=== PATIENT | female | born 1940 | race Caucasian/White ===

== ENCOUNTER 2017-12-22 11:47 | Inpatient (IN) | payer OTHER, BC ==
[2017-12-22] MEDS ORDERED: AZITHROMYCIN 500 MG TABLET PO ONE (12:01)
[2017-12-22] MEDS ORDERED: methylPREDNISolone NA SUCC 125 MG/2 ML VIAL IVPB ONE (12:01)
[2017-12-22] MEDS: ALBUTEROL SO4 2.5/IPRATROPIUM 0.5 INH SOL 3 ML VIAL.NEB. NEB SCH ×4 (12:10→12:51)
[2017-12-22] MEDS ORDERED: ALBUTEROL SO4 2.5/IPRATROPIUM 0.5 INH SOL 3 ML VIAL.NEB. NEB ONE (12:14)
[2017-12-22] MEDS ORDERED: AZITHROMYCIN 250 MG TABLET ONE (12:14)
[2017-12-22] MEDS ORDERED: methylPREDNISolone NA SUCC 125 MG/2 ML VIAL ONE ×2 (12:14→12:17)
--- NOTE | 2017-12-22 12:22 | PDOC ---
History of Present Illness <Guido De La Garza - Last Filed: 12/22/17 14:53> - History of Present Illness Initial Comments: 12/22/17 12:44 "The patient is a 77 year old female with significant past medical history of hypertension. hyperlipidemia, diabetes mellitus, mitral valve prolapse, coronary artery disease, anemia, COPD on 2L O2, TIA, Alzheimer's dementia who presents to the emergency department from detention, with worsening shortness of breath for 1 week. The patient states that her current symptoms feel similar to prior COPD flares. Pt denies CP, denies F/C. She states that she used her nebulizers at home with some relief. Pt received 2 nebulizers prior to arriving to Emergency Department, which she states helped to alleviate some of her symptoms. She denies leg swelling, recent travel, and sick contacts. Social History: Former smoker (quit 1 year ago), Lives in detention <Bartolo Maynard - Last Filed: 12/22/17 15:15> - General Stated Complaint: SOB Time Seen by Provider: 12/22/17 11:55 Past History <Guido De La Garza - Last Filed: 12/22/17 14:53> - Past Medical History Anemia: Yes (IRON DEFICIENCY) Asthma: No Cancer: No Cardiac Disorders: Yes (HX MVP; ASHD; CAD) CVA: Yes (TIA) COPD: Yes (FREQUENT BRONCHITIS) CHF: Yes Dementia: Yes Diabetes: Yes (NIDDM) GI Disorders: Yes (HX GI BLEED; DIVERTICULOSIS;ESOPHAGITIS;AVM; HIATAL HERNIA; POLYPS,REFLUX E) Disorders: Yes (KIDNEY STONES) HTN: Yes Hypercholesterolemia: Yes Liver Disease: No Seizures: No Thyroid Disease: Yes - Surgical History Abdominal Surgery: No Appendectomy: No Cardiac Surgery: No Cholecystectomy: Yes Lung Surgery: No Neurologic Surgery: No Orthopedic Surgery: Yes (LEFT hip replacement 2010; KNEE SURGERY) - Immunization History Immunization Up to Date: Yes - Suicide/Smoking/Psychosocial Hx Smoking Status: Yes Smoking History: Former smoker Have you smoked in the past 12 months: No Number of Cigarettes Smoked Daily: 10 If you are a former smoker, when did you quit?: 2017 Information on smoking cessation initiated: No 'Breaking Loose' booklet given: 07/12/16 Hx Alcohol Use: No Drug/Substance Use Hx: No Substance Use Type: None Hx Substance Use Treatment: No <Bartolo Maynard - Last Filed: 12/22/17 15:15> - Past Medical History Allergies/Adverse Reactions: Allergies Allergy/AdvReac Type Severity Reaction Status Date / Time No Known Allergies Allergy Verified 08/18/16 16:17 Home Medications: Ambulatory Orders Ascorbate Calcium [Vitamin C] 500 mg PO DAILY 11/16/16 Aspirin [ASA -] 81 mg PO DAILY 11/16/16 Atorvastatin Ca [Lipitor] 80 mg PO HS 11/16/16 Cranberry Conc/Ascorbic Acid [Cranberry Concentrate Softgel] 1 each PO DAILY 04/27 Diltiazem Cd [Cardizem Cd -] 120 mg PO DAILY 11/16/16 Donepezil HCl 5 mg PO DAILY 11/16/16 Ferrous Sulfate 325 mg PO DAILY 11/16/16 Furosemide [Lasix] 60 mg PO DAILY 11/16/16 Insulin (Levemir) [Levemir Vial] 8 unit SQ HS 11/16/16 Insulin (Levemir) [Levemir Vial] 15 unit SQ DAILY 11/16/16 Lactobacillus Acidophilus [Bacid -] 1 each PO BID 11/16/16 Melatonin 3 mg PO DAILY 11/16/16 Olanzapine [Zyprexa -] 2.5 mg PO HS 11/16/16 Paroxetine HCl [Paxil -] 30 mg PO DAILY 11/16/16 Paroxetine HCl [Paxil] 40 mg PO DAILY 11/16/16 Potassium Chloride 80 meq PO DAILY 11/16/16 hydrOXYzine HCL [Atarax -] 25 mg PO TID 11/16/16 Review of Systems - Review of Systems Comments:: 12/22/17 12:47 "GENERAL/CONSTITUTIONAL: No fever or chills. No weakness. HEAD, EYES, EARS, NOSE AND THROAT: No change in vision. No ear pain or discharge. No sore throat. CARDIOVASCULAR: No chest pain RESPIRATORY: (+) Shortness of breath. No cough, or hemoptysis. GASTROINTESTINAL: No nausea, vomiting, diarrhea or constipation. GENITOURINARY: No dysuria, frequency, or change in urination. MUSCULOSKELETAL: No joint or muscle swelling or pain. No neck or back pain. SKIN: No rash NEUROLOGIC: No headache, vertigo, loss of consciousness, or change in strength/ sensation. ENDOCRINE: No increased thirst. No abnormal weight change. HEMATOLOGIC/LYMPHATIC: No anemia, easy bleeding, or history of blood clots. ALLERGIC/IMMUNOLOGIC: No hives or skin allergy. " <Bartolo Maynard - Last Filed: 12/22/17 15:15> *Physical Exam - Vital Signs Last Vital Signs Temp Pulse Resp BP Pulse Ox 98.1 F 105 H 29 H 149/90 100 12/22/17 12:07 12/22/17 14:21 12/22/17 13:39 12/22/17 13:39 12/22/17 14:21 <Guido De La Garza - Last Filed: 12/22/17 14:53> - Vital Signs Last Vital Signs Temp Pulse Resp BP Pulse Ox 98.1 F 102 H 31 H 145/57 93 L 12/22/17 12:07 12/22/17 12:07 12/22/17 12:07 12/22/17 12:07 12/22/17 12:07 - Physical Exam Comments: 12/22/17 12:47 "GENERAL: Awake, alert, and fully oriented, in no acute distress HEAD: No signs of trauma EYES: PERRLA, EOMI, sclera anicteric, conjunctiva clear ENT: Auricles normal inspection, hearing grossly normal, nares patent, oropharynx clear without exudates. Moist mucosa NECK: Nontender, no stepoffs, Normal ROM, supple, no lymphadenopathy, JVD, or masses LUNGS: (+) Breath sounds equal. Poor air movement with expiratory wheezing HEART: Regular rate and rhythm, normal S1 and S2, no murmurs, rubs or gallops ABDOMEN: Soft, nontender, normoactive bowel sounds. No guarding, no rebound. No masses EXTREMITIES: Normal range of motion, no edema. No clubbing or cyanosis. No cords, erythema, or tenderness NEUROLOGICAL: Cranial nerves II through XII intact. 5/5 strength and sensation in all extremities, Normal speech, normal gait SKIN: Warm, Dry, normal turgor, no rashes or lesions noted. " <Bartolo Maynard - Last Filed: 12/22/17 15:15> Heart Score/ECG Review - ECG Impressions Comment:: 12/22/17 12:47 NSR, no GAIL/STDs, axis wnl, intervals wnl, rate 106 <Bartolo Manyard - Last Filed: 12/22/17 15:15> ED Treatment Course - LABORATORY CBC & Chemistry Diagram: 12/22/17 12:27 12/22/17 12:27 - ADDITIONAL ORDERS Additional order review: Laboratory Results 12/22/17 12/22/17 12/22/17 12:45 12:27 12:27 PT with INR 11.90 H INR 1.05 PTT (Actin FS) 27.3 VBG pH 7.35 POC VBG pCO2 56.6 H POC VBG pO2 92.9 H Mixed VBG HCO3 30.2 H Sodium Potassium Chloride Carbon Dioxide Anion Gap BUN Creatinine Creat Clearance w eGFR Random Glucose Calcium Total Bilirubin AST ALT Alkaline Phosphatase Creatine Kinase Troponin I B-Natriuretic Peptide Total Protein Albumin Blood Type A POSITIVE Antibody Screen Negative 12/22/17 12:27 PT with INR INR PTT (Actin FS) VBG pH POC VBG pCO2 POC VBG pO2 Mixed VBG HCO3 Sodium 138 Potassium 3.4 L Chloride 97 L Carbon Dioxide 32 Anion Gap 9 BUN 23 H Creatinine 1.1 H Creat Clearance w eGFR 48.04 Random Glucose 137 H Calcium 8.8 Total Bilirubin 0.3 D AST 19 ALT 15 Alkaline Phosphatase 137 H Creatine Kinase 55 Troponin I < 0.02 B-Natriuretic Peptide 1607.04 H Total Protein 7.1 Albumin 3.4 Blood Type Antibody Screen 12/22/17 12:27 RBC 4.19 D MCV 89.2 MCHC 31.8 L RDW 17.1 H MPV 7.9 Neutrophils % 86.0 H Lymphocytes % 4.6 L D Monocytes % 8.8 Eosinophils % 0.2 D Basophils % 0.4 - Medications Given in the ED: ED Medications Discontinued Medications Generic Name Dose Route Start Last Admin Trade Name Dada PRN Reason Stop Dose Admin Albuterol Sulfate 1 amp 12/22/17 12:42 12/22/17 13:46 Ventolin 0.083% Nebulizer Soln - NEB 12/22/17 12:43 1 amp ONCE ONE Administration Albuterol/Ipratropium 1 amp 12/22/17 12:15 12/22/17 12:51 Duoneb - NEB 12/22/17 13:01 1 amp Q15M LENNIE Administration Azithromycin 500 mg 12/22/17 12:01 12/22/17 12:50 Azithromycin PO 12/22/17 12:02 500 mg ONCE ONE Administration Magnesium Sulfate 2 gm 12/22/17 12:28 12/22/17 12:51 Magnesium Sulfate IVPB 12/22/17 12:29 2 gm ONCE ONE Administration Methylprednisolone Sodium Succinate 125 mg 12/22/17 12:01 12/22/17 12:30 Solu-Medrol - IVPB 12/22/17 12:02 125 mg ONCE ONE Administration <Guido De La Garza - Last Filed: 12/22/17 14:53> - LABORATORY CBC & Chemistry Diagram: 12/22/17 12:27 12/22/17 12:27 - RADIOLOGY Radiology Studies Ordered: Category Date Time Status CHEST X-RAY PORTABLE* [RAD] Stat Radiology 12/22/17 12:01 Ordered <Bartolo Maynard - Last Filed: 12/22/17 15:15> Medical Decision Making - Medical Decision Making 12/22/17 14:[address] Pandya placed. HANDLE AND VENT MACHINE OPERATOR Dipan is covering, awaiting call back. 12/22/17 14:51 Second call HANDLE AND VENT MACHINE OPERATOR Dipan placed. Awaiting call back. <Guido De La Garza - Last Filed: 12/22/17 14:53> - Medical Decision Making 12/22/17 12:48 77 F with SOB, found to be wheezing on exam. Likely COPD exacerbation. Pt without s/s volume ovleroad/CHF. No fevers to suggest infectious process. - labs, trop, BNP - CXR - Nebs, steroids 12/22/17 13:12 Pt reassessed s/p duonebs and steroids. Reports only minimal improvement. Pt still tachypneic to 30 with poor aeration of bilateral lungs. CXR clear. Pt placed on BiPAP for work of breathing. 12/22/17 15:14 Pt admitted to [facility]ENT [facility]ACHINE [facility]PER[facility] <Bartolo Maynard - Last Filed: 12/22/17 15:15> *DC/Admit/Observation/Transfer - Attestations Scribe Attestion: 12/22/17 14:54 Documentation prepared by Guido De La Garza, acting as certified medical coder for Bartolo Maynard MD. <Guido De La Garza - Last Filed: 12/22/17 14:53> - Discharge Dispostion Admit: Yes - Attestations Physician Attestion: 12/22/17 15:14 I, Dr. Bartolo Maynard MD, attest that this document has been prepared under my direction and personally reviewed by me in its entirety. I further attest, that it accurately reflects all work, treatment, procedures and medical decision -making performed by me. <Bartolo Maynard - Last Filed: 12/22/17 15:15> Diagnosis at time of Disposition: COPD exacerbation
[2017-12-22] MEDS ORDERED: MAGNESIUM SULF 50% (8.12 MEQ/2 ML-1 GM VIAL) IVPB ONE (12:28)
[2017-12-22] MEDS ORDERED: MAGNESIUM SULF 50% (8.12 MEQ/2 ML-1 GM VIAL) ONE (12:30)
[2017-12-22 12:34] LABS: BASO % 0.4 % (0-2.0); EOS % 0.2 % (0-4.5); HEMATOCRIT 37.4 % (32.4-45.2); HEMOGLOBIN 11.9 GM/dL (10.7-15.3); LYMPH % 4.6 % (8-40); MCH 28.4 pg (25.7-33.7); MCHC 31.8 g/dl (32.0-36.0); MEAN CELL VOLUME 89.2 fl (80-96); MEAN PLT VOLUME 7.9 fl (7.5-11.1); MONO % 8.8 % (3.8-10.2); PLATELET COUNT 256 K/MM3 (134-434); RBC 4.19 M/mm3 (3.60-5.2); RDW 17.1 % (11.6-15.6); WHITE BLOOD COUNT 8.7 K/mm3 (4.0-10.0)
[2017-12-22] MEDS ORDERED: ALBUTEROL SO4 0.083% IH SOL 2.5 MG/3 ML VIAL.NEB. NEB ONE (12:42)
[2017-12-22 12:52] LABS: INR 1.05 (0.82-1.09); PROTHROMBIN TIME (PATIENT) 11.9 SEC (9.98-11.88)
[2017-12-22 12:54] LABS: ACTIVATED PTT 27.3 SECONDS (26.9-34.4)
[2017-12-22 13:06] LABS: VENOUS PC02 56.6 mmHg (38-52); VENOUS PH 7.35 (7.32-7.42); VENOUS PO2 92.9 mmHg (28-48)
[2017-12-22 13:18] LABS: ALBUMIN 3.4 g/dl (3.4-5.0); ANION GAP 9 (8-16); BILIRUBIN,TOTAL 0.3 mg/dL (0.2-1.0); BLOOD UREA NITROGEN 23 mg/dL (7-18); CALCIUM 8.8 mg/dL (8.5-10.1); CHLORIDE 97 mmol/L (98-107); CO2 32 mmol/L (21-32); CREATININE 1.1 mg/dL (0.55-1.02); GLUCOSE,RANDOM 137 mg/dL (74-106); POTASSIUM 3.4 mmol/L (3.5-5.1); SGOT/AST 19 U/L (15-37); SGPT/ALT 15 U/L (12-78); SODIUM 138 mmol/L (136-145); TOT PROT 7.1 g/dl (6.4-8.2)
[2017-12-22 13:21] LABS: ALK PHOS 137 U/L (45-117); N-TERMINAL BNP 1607.04 pg/ml (5-450)
--- NOTE | 2017-12-22 16:51 | EKG ---
Test Reason : Blood Pressure : / mmHG Vent. Rate : 106 BPM Atrial Rate : 106 BPM P-R Int : 154 ms QRS Dur : 088 ms QT Int : 340 ms P-R-T Axes : 076 036 143 degrees QTc Int : 451 ms SINUS TACHYCARDIA WITH OCCASIONAL PREMATURE VENTRICULAR COMPLEXES ANTERIOR INFARCT (CITED ON OR BEFORE 05-DEC-2015) ABNORMAL ECG WHEN COMPARED WITH ECG OF 16-NOV-2016 18:49, PREMATURE VENTRICULAR COMPLEXES ARE NOW PRESENT INVERTED T WAVES HAVE REPLACED NONSPECIFIC T WAVE ABNORMALITY IN INFERIOR LEADS Confirmed by CARMEN BUCIO, BART ([id number]) on 12/22/2017 4:51:18 PM Referred By: Confirmed By:BART MORALES MD
[2017-12-22] MEDS ORDERED: DONEPEZIL HCL 5 MG TABLET (FP) ONE (22:04)
[2017-12-22] MEDS ORDERED: ATORVASTATIN CA 40 MG TABLET (FP) ONE (22:04)
[2017-12-22] MEDS ORDERED: HEPARIN NA (PORCINE) 5,000 UNITS/ML 1ML VIAL ONE (22:04)
[2017-12-22] MEDS ORDERED: POTASSIUM CHLORIDE TABS 20 MEQ TABLET.ER (FP) PO ONE (22:04)
[2017-12-22] MEDS ORDERED: PARoxetine HCL 10 MG TABLET (FP) ONE (22:05)
[2017-12-22] MEDS ORDERED: SPIRONOLACTONE 25 MG TABLET (FP) ONE (22:05)
[2017-12-22] MEDS: SPIRONOLACTONE 25 MG TABLET (FP) PO SCH (22:18)
[2017-12-22] MEDS: PARoxetine HCL 20 MG TABLET (FP) PO SCH (22:19)
[2017-12-22] MEDS: FERROUS SO4 325 MG TABLET (FP) PO SCH (22:19)
[2017-12-22] MEDS: ASCORBIC ACID 500 MG TABLET (FP) PO SCH (22:19)
[2017-12-22] MEDS: HEPARIN NA (PORCINE) 5,000 UNITS/ML 1ML VIAL SQ SCH (22:19)
[2017-12-22] MEDS: ATORVASTATIN CA 40 MG TABLET (FP) PO SCH (22:19)
[2017-12-22] MEDS: LACTOBACILLUS ACIDOPHILUS 1 EACH TAB (FP) PO SCH (22:19)
[2017-12-22] MEDS: POTASSIUM CHLORIDE TABS 20 MEQ TABLET.ER (FP) PO SCH (22:19)
[2017-12-22] MEDS: DONEPEZIL HCL 5 MG TABLET (FP) PO SCH (22:19)
[2017-12-23] MEDS: INSULIN DETEMIR 100 UNITS/ML MDV SQ SCH (09:00)
[2017-12-23] MEDS ORDERED: INSULIN DETEMIR 100 UNITS/ML MDV SQ ONE (09:03)
[2017-12-23] MEDS: HEPARIN NA (PORCINE) 5,000 UNITS/ML 1ML VIAL SQ SCH ×2 (10:26→21:20)
[2017-12-23] MEDS: LACTOBACILLUS ACIDOPHILUS 1 EACH TAB (FP) PO SCH ×2 (10:26→21:19)
[2017-12-23] MEDS: POTASSIUM CHLORIDE TABS 20 MEQ TABLET.ER (FP) PO SCH ×2 (10:27→21:20)
[2017-12-23] MEDS: FERROUS SO4 325 MG TABLET (FP) PO SCH ×3 (10:28→21:20)
[2017-12-23] MEDS: ASCORBIC ACID 500 MG TABLET (FP) PO SCH ×2 (10:28→21:20)
[2017-12-23] MEDS: SPIRONOLACTONE 25 MG TABLET (FP) PO SCH ×2 (10:28→21:19)
[2017-12-23] MEDS ORDERED: ASPIRIN 81 MG CHEWABLE TABLETS ONE (10:58)
[2017-12-23] MEDS ORDERED: DOCUSATE SODIUM 100 MG CAPSULE (FP) PO ONE (10:59)
[2017-12-23] MEDS: DOCUSATE SODIUM 100 MG CAPSULE (FP) PO SCH (11:21)
[2017-12-23] MEDS: ASPIRIN 81 MG CHEWABLE TABLETS PO SCH (11:21)
[2017-12-23] MEDS ORDERED: ACETAMINOPHEN 325 MG TABLET (FP) PO PRN (12:17)
[2017-12-23 12:19] VITALS: BMI 27.6
--- NOTE | 2017-12-23 12:25 | HP ---
Admitting History and Physical - Primary Care Physician PCP: Simon Pandya - Admission History of Present Illness: "The patient is a 77 year old female with significant past medical history of hypertension. hyperlipidemia, diabetes mellitus, mitral valve prolapse, coronary artery disease, anemia, COPD on 2L O2, TIA, Alzheimer's dementia who presents to the emergency department from long-term, with worsening shortness of breath for 1 week. The patient states that her current symptoms feel similar to prior COPD flares. Pt denies CP, denies F/C. She states that she used her nebulizers at home with some relief. Pt received 2 nebulizers prior to arriving to Emergency Department, which she states helped to alleviate some of her symptoms. She denies leg swelling, recent travel, and sick contacts. 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 Cardiovascular: Yes: CAD, HTN, Hyperlipdemia, Mitral Insufficiency Pulmonary: Yes: Bronchitis, COPD Gastrointestinal: Yes: Diverticulosis, GERD, GI Bleed (HISTORY OF IRON DEFICIENCY), Hiatal Hernia, Other (antral ulcer per 02/2016 EGD, occult gi bleeding, was to be scheduled for EUS and repeat capsule exam but patient has been not able to move forward seconadary to illness) Renal/: Yes: Renal Inusuff, Other (hyponatremia,hypokelemia and hypomagnesemia ) Heme/Onc: Yes: Anemia Psych: Yes: Depression Musculoskeletal: Yes: Chronic low back pain Endocrine: Yes: Diabetes Mellitus Dermatology: Yes: Other - Past Surgical History Past Surgical History: Yes: Cholecystectomy, Colonoscopy, Joint Replacement, Upper Endoscopy - Smoking History Smoking history: Former smoker Have you smoked in the past 12 months: No Aproximately how many cigarettes per day: 10 If you are a former smoker, when did you quit?: 2017 - Alcohol/Substance Use Hx Alcohol Use: No History of Substance Use: reports: None - Social History ADL: Support Services (walks with walker) History of Recent Travel: No Home Medications - Allergies Allergies/Adverse Reactions: Allergies Allergy/AdvReac Type Severity Reaction Status Date / Time No Known Allergies Allergy Verified 08/18/16 16:17 - Home Medications Home Medications: Ambulatory Orders Ascorbate Calcium [Vitamin C] 500 mg PO BID 11/16/16 Aspirin [ASA -] 81 mg PO DAILY 11/16/16 Atorvastatin Ca [Lipitor] 40 mg PO HS 11/16/16 Cranberry Conc/Ascorbic Acid [Cranberry Concentrate Softgel] 1 each PO DAILY 04/27 Diltiazem Cd [Cardizem Cd -] 120 mg PO DAILY 11/16/16 Donepezil HCl 5 mg PO HS 11/16/16 Ferrous Sulfate 325 mg PO TID 11/16/16 Insulin (Levemir) [Levemir Vial] 15 unit SQ AM 11/16/16 Paroxetine HCl [Paxil] 40 mg PO HS 11/16/16 Potassium Chloride 20 meq PO BID 11/16/16 Calcium Carbonate/Vitamin D3 [Oyster Shell 500-Vit D3 200 Tb] 1 each PO DAILY Cholecalciferol (Vitamin D3) [Vitamin D3] 1 tab PO DAILY 12/22/17 Docusate Sodium [Colace] 100 mg PO DAILY 12/22/17 Ipratropium/Albuterol Sulfate [Iprat-Albut 0.5-3(2.5) mg/3 ml] 3 ml IN QID 12/22 Lactobacillus Acidophilus [Bacid -] 250 mg PO BID 12/22/17 Mupirocin 1 gm TP DAILY 12/22/17 Spironolactone [Aldactone] 25 mg PO BID 12/22/17 Review of Systems - Review of Systems Cardiovascular: reports: No Symptoms Respiratory: reports: No Symptoms Physical Examination Vital Signs: Vital Signs Temperature 98.0 F 12/23/17 09:55 Pulse Rate 86 12/23/17 09:55 Respiratory Rate 20 12/23/17 09:55 Blood Pressure 106/44 12/23/17 09:55 O2 Sat by Pulse Oximetry (%) 100 12/23/17 08:35 Constitutional: Yes: Calm Cardiovascular: Yes: Pulse Irregular, S1, S2 Respiratory: Yes: Diminished, On Nasal O2, Other (distant breath sounds) Gastrointestinal: Yes: Normal Bowel Sounds, Soft Edema: No Neurological: Yes: Alert, Oriented Labs: CBC, BMP 12/22/17 12:27 12/22/17 12:27 Problem List - Problems (1) COPD exacerbation Assessment/Plan: jn vy zavala as patient was complaining of rhinorrhea iv steroids oxygen bronchodilators pulm eval Code(s): J44.1 - CHRONIC OBSTRUCTIVE PULMONARY DISEASE W (ACUTE) EXACERBATION (2) CHF (congestive heart failure) Assessment/Plan: aldactone,cardizem Code(s): I50.9 - HEART FAILURE, UNSPECIFIED (3) Diabetes Assessment/Plan: bgm ,hgba1c insulin Code(s): E11.9 - TYPE 2 DIABETES MELLITUS WITHOUT COMPLICATIONS Qualifiers: Diabetes mellitus type: type 2 Diabetes mellitus complication status: without complication Diabetes mellitus mcc insulin use: without mcc use Qualified Code(s): E11.9 - Type 2 diabetes mellitus without complications (4) Anemia Assessment/Plan: check iron panel as patient on ferrous sulfate Code(s): D64.9 - ANEMIA, UNSPECIFIED Qualifiers: Anemia type: iron deficiency Iron deficiency anemia type: unspecified iron deficiency Qualified Code(s): D50.9 - Iron deficiency anemia, unspecified (5) Dementia Assessment/Plan: same meds Code(s): F03.90 - UNSPECIFIED DEMENTIA WITHOUT BEHAVIORAL DISTURBANCE
--- NOTE | 2017-12-23 12:51 | PN ---
Progress Note (short form) - Note Progress Note: PULMONARY CONSULTATION DICTATED 12/23/17 IMP ACUTE ON CHRONIC HYPOXIC RESPIRATORY FAILURE COPD EXACERBATION ASHD CHF DM HTN KINSEY PLAN IV STEROIDS INHALED BRONCHODILATORS O2 ABX DIURETICS MONITOR LYTES,RENAL FUNCTION DR LANG Problem List - Problems (1) COPD exacerbation Code(s): J44.1 - CHRONIC OBSTRUCTIVE PULMONARY DISEASE W (ACUTE) EXACERBATION (2) Acute on chronic respiratory failure with hypoxia and hypercapnia Code(s): J96.21 - ACUTE AND CHRONIC RESPIRATORY FAILURE WITH HYPOXIA; J96.22 - ACUTE AND CHRONIC RESPIRATORY FAILURE WITH HYPERCAPNIA (3) CHF (congestive heart failure) Code(s): I50.9 - HEART FAILURE, UNSPECIFIED (4) Dementia Code(s): F03.90 - UNSPECIFIED DEMENTIA WITHOUT BEHAVIORAL DISTURBANCE (5) Diabetes Code(s): E11.9 - TYPE 2 DIABETES MELLITUS WITHOUT COMPLICATIONS Qualifiers: Diabetes mellitus type: type 2 Diabetes mellitus complication status: without complication Diabetes mellitus assistant terminal manager insulin use: without long-term use Qualified Code(s): E11.9 - Type 2 diabetes mellitus without complications (6) KINSEY (acute kidney injury) Code(s): N17.9 - ACUTE KIDNEY FAILURE, UNSPECIFIED
--- NOTE | 2017-12-23 13:20 | CONS ---
DATE OF CONSULTATION: 12/23/2017 REFERRING PHYSICIAN: Simon Pandya MD HISTORY: The patient is a 77-year-old white female known to me from previous hospitalizations with a past medical history of being on O2, shelter resident, TIA, Alzheimer dementia, history of hyperlipidemia, mitral insufficiency, hypertension, ASHD, history of antral ulcer, status post EGD February 29, 2016, chronic kidney disease, chronic back pain admitted to [facility] from [facility] secondary to a 1-week history of increasing shortness of breath and a cough and chest congestion. The patient denied any fevers, chills, nausea, vomiting, or diaphoresis. Denied any hemoptysis. She states that for the past week she has had the above symptoms. She was started on bronchodilators with minimal improvement. She presented to the emergency room with the above. In the ER, she was 2 nebulizer treatments that offered some improvement. She denies any history of DVT or PE in the past. There is no history of occupational exposure to chemicals or fumes. She has a history of smoking approximately 1-2 packs per day for many years. Quit 2 years ago. PAST MEDICAL HISTORY: Again, includes hypertension, hyperlipidemia, COPD on O2, diabetes, mitral valve prolapse, ASHD, Alzheimer dementia, hypertension, history of GI bleed, GERD, diverticulosis, hyperlipidemia, mitral insufficiency. REVIEW OF SYSTEMS: Positive dyspnea, positive cough, positive wheezing. No chest pain, no palpitations, no nausea, no vomiting, no diaphoresis, no abdominal pain, no lower extremity edema. PHYSICAL EXAMINATION: General: The patient is a well-developed, well-nourished female awake and alert in no acute distress. Her mouth is mildly dyspneic but in no acute distress. Vital Signs: She is currently afebrile. Blood pressure 106/44, respiratory rate 20, O2 saturation 100% on 3 L. HEENT: Normocephalic and atraumatic. Neck: Supple. Heart: Regular with S1, S2. Chest: Scattered bilateral wheezes. Abdomen: Soft. Bowel sounds positive. Extremities: No cyanosis or edema. LABORATORIES: WBC 8.7, hemoglobin 11.9, hematocrit 37.4 with a platelet count of 256,000. INR 1.05. Venous blood gas: PH 7.35, PCO2 of 56, PO2 of 92, bicarbonate 30. Chemistries: BUN 23, creatinine 1.1, BNP 1607. Chest x-ray: No acute infiltrates or effusions. IMPRESSION: Acute on chronic hypercapnic, hypoxemic respiratory failure secondary to: 1. Decompensated chronic obstructive pulmonary disease. 2. Arteriosclerotic heart disease. 3. History of valvular heart disease. 4. Hypertension. 5. Diabetes. 6. Alzheimer dementia. PLAN: Supplemental O2. Inhaled bronchodilators. IV steroids. Monitor O2. Antibiotics. MARTHA LANG M.D. [id number]
[2017-12-23] MEDS ORDERED: methylPREDNISolone NA SUCC 40 MG/1 ML VIAL ONE (15:35)
[2017-12-23] MEDS: methylPREDNISolone NA SUCC 40 MG/1 ML VIAL IVPUSH SCH ×2 (15:38→21:20)
[2017-12-23] MEDS: ALBUTEROL SO4 0.083% IH SOL 2.5 MG/3 ML VIAL.NEB. NEB PRN (20:40)
[2017-12-23] MEDS: DONEPEZIL HCL 5 MG TABLET (FP) PO SCH (21:19)
[2017-12-23] MEDS: ATORVASTATIN CA 40 MG TABLET (FP) PO SCH (21:20)
[2017-12-23] MEDS: PARoxetine HCL 20 MG TABLET (FP) PO SCH (21:20)
[2017-12-24] MEDS: methylPREDNISolone NA SUCC 40 MG/1 ML VIAL IVPUSH SCH ×3 (02:13→17:40)
[2017-12-24] MEDS: INSULIN DETEMIR 100 UNITS/ML MDV SQ SCH (06:11)
[2017-12-24] MEDS: FERROUS SO4 325 MG TABLET (FP) PO SCH ×3 (06:12→21:26)
[2017-12-24 08:04] LABS: ANION GAP 6 (8-16); BLOOD UREA NITROGEN 43 mg/dL (7-18); CALCIUM 8.2 mg/dL (8.5-10.1); CHLORIDE 100 mmol/L (98-107); CO2 31 mmol/L (21-32); CREATININE 1.1 mg/dL (0.55-1.02); GLUCOSE,RANDOM 150 mg/dL (74-106); POTASSIUM 3.7 mmol/L (3.5-5.1); SODIUM 137 mmol/L (136-145)
[2017-12-24] MEDS ORDERED: PT OWN MED DRAWER 7, Y5N ONE (09:31)
--- NOTE | 2017-12-24 10:33 | PN ---
Progress Note, Physician Chief Complaint: COPD exacerbation History of Present Illness: NAD, sitting in chair, breathing improved, used BIPAP at night seen by Pulmonary, on IV steroids - Current Medication List Current Medications: Active Medications Acetaminophen (Tylenol -) 650 mg PO Q6H PRN PRN Reason: PAIN OR FEVER Albuterol Sulfate (Ventolin 0.083% Nebulizer Soln -) 1 amp NEB Q4H PRN PRN Reason: SHORT OF BREATH/WHEEZING Last Admin: 12/23/17 20:40 Dose: 1 amp Ascorbic Acid (Vitamin C -) 500 mg PO BID [facility] Last Admin: 12/23/17 21:20 Dose: 500 mg Aspirin (Asa -) 81 mg PO DAILY [facility] Last Admin: 12/23/17 11:21 Dose: 81 mg Atorvastatin Calcium (Lipitor -) 40 mg PO HS [facility] Last Admin: 12/23/17 21:20 Dose: 40 mg Diltiazem HCl (Cardizem Cd -) 120 mg PO DAILY [facility] Last Admin: 12/23/17 10:27 Dose: 120 mg Docusate Sodium (Colace -) 100 mg PO DAILY [facility] Last Admin: 12/23/17 11:21 Dose: 100 mg Donepezil HCl (Aricept -) 5 mg PO HS [facility] Last Admin: 12/23/17 21:19 Dose: 5 mg Ferrous Sulfate (Feosol -) 325 mg PO TID [facility] Last Admin: 12/24/17 06:12 Dose: Not Given Heparin Sodium (Porcine) (Heparin -) 5,000 unit SQ BID [facility] Last Admin: 12/23/17 21:20 Dose: 5,000 unit Insulin Detemir (Levemir Vial) 15 units SQ AM [facility] Last Admin: 12/24/17 06:11 Dose: 15 units Lactobacillus Acidophilus (Bacid -) 1 tab PO BID [facility] Last Admin: 12/23/17 21:19 Dose: 1 tab Methylprednisolone Sodium Succinate (Solu-Medrol -) 40 mg IVPUSH Q6H-IV [facility] Last Admin: 12/24/17 02:13 Dose: 40 mg Paroxetine HCl (Paxil -) 40 mg PO HS [facility] Last Admin: 12/23/17 21:20 Dose: 40 mg Potassium Chloride (K-Dur -) 20 meq PO BID [facility] Last Admin: 12/23/17 21:20 Dose: 20 meq Spironolactone (Aldactone -) 25 mg PO BID [facility] Last Admin: 12/23/17 21:19 Dose: 25 mg - Objective Vital Signs: Vital Signs Temperature 98.1 F 12/24/17 07:36 Pulse Rate 66 12/24/17 07:36 Respiratory Rate 20 12/24/17 07:36 Blood Pressure 142/58 12/24/17 07:36 O2 Sat by Pulse Oximetry (%) 99 12/24/17 09:12 Constitutional: Yes: Well Nourished, No Distress, Calm Cardiovascular: Yes: Regular Rate and Rhythm Respiratory: Yes: Regular Gastrointestinal: Yes: Normal Bowel Sounds, Soft Musculoskeletal: Yes: WNL Extremities: Yes: WNL Edema: No Peripheral Pulses WNL: Yes Neurological: Yes: Alert, Oriented Psychiatric: Yes: Alert, Oriented Labs: CBC, BMP 12/22/17 12:27 12/24/17 06:00 INR, PTT INR 1.05 (0.82-1.09) 12/22/17 12:27 Problem List - Problems (1) COPD exacerbation Assessment/Plan: Influenza swab pending iv steroids changed to Q8H Nasal O2 Bipap PRN bronchodilators pulm eval Code(s): J44.1 - CHRONIC OBSTRUCTIVE PULMONARY DISEASE W (ACUTE) EXACERBATION (2) CHF (congestive heart failure) Assessment/Plan: -on spironolactone and cardizem Code(s): I50.9 - HEART FAILURE, UNSPECIFIED (3) Diabetes Assessment/Plan: -last A1c at 5.5 -endocrinology consult -insulin SA and LA for now that she is on IV steroids -Diabetic diet -BGM Code(s): E11.9 - TYPE 2 DIABETES MELLITUS WITHOUT COMPLICATIONS Qualifiers: Diabetes mellitus type: type 2 Diabetes mellitus complication status: without complication Diabetes mellitus ocean transportation intermediary insulin use: without ocean transportation intermediary use Qualified Code(s): E11.9 - Type 2 diabetes mellitus without complications Assessment/Plan see problem list
[2017-12-24] MEDS: SPIRONOLACTONE 25 MG TABLET (FP) PO SCH ×2 (11:11→21:25)
[2017-12-24] MEDS: ASPIRIN 81 MG CHEWABLE TABLETS PO SCH (11:12)
[2017-12-24] MEDS: LACTOBACILLUS ACIDOPHILUS 1 EACH TAB (FP) PO SCH ×2 (11:12→21:25)
[2017-12-24] MEDS: HEPARIN NA (PORCINE) 5,000 UNITS/ML 1ML VIAL SQ SCH ×2 (11:12→21:27)
[2017-12-24] MEDS: DOCUSATE SODIUM 100 MG CAPSULE (FP) PO SCH (11:12)
[2017-12-24] MEDS: POTASSIUM CHLORIDE TABS 20 MEQ TABLET.ER (FP) PO SCH ×2 (11:12→21:26)
[2017-12-24] MEDS: ASCORBIC ACID 500 MG TABLET (FP) PO SCH ×2 (11:12→21:26)
--- NOTE | 2017-12-24 11:58 | PN ---
Progress Note (short form) - Note Progress Note: OOB to chair. Reports using NIPPV overnight. Breathing feels a little better today. Intake & Output 12/21/17 12/22/17 12/23/17 12/24/17 23:59 23:59 23:59 23:59 Weight 155 lb 151 lb 139 lb 2 oz Last Vital Signs Temp Pulse Resp BP Pulse Ox 98.1 F 66 20 142/58 99 12/24/17 07:36 12/24/17 07:36 12/24/17 07:36 12/24/17 07:36 12/24/17 09:12 Active Medications Acetaminophen (Tylenol -) 650 mg PO Q6H PRN PRN Reason: PAIN OR FEVER Albuterol Sulfate (Ventolin 0.083% Nebulizer Soln -) 1 amp NEB Q4H PRN PRN Reason: SHORT OF BREATH/WHEEZING Last Admin: 12/23/17 20:40 Dose: 1 amp Ascorbic Acid (Vitamin C -) 500 mg PO BID [facility] Last Admin: 12/23/17 21:20 Dose: 500 mg Aspirin (Asa -) 81 mg PO DAILY [facility] Last Admin: 12/23/17 11:21 Dose: 81 mg Atorvastatin Calcium (Lipitor -) 40 mg PO HS [facility] Last Admin: 12/23/17 21:20 Dose: 40 mg Diltiazem HCl (Cardizem Cd -) 120 mg PO DAILY [facility] Last Admin: 12/23/17 10:27 Dose: 120 mg Docusate Sodium (Colace -) 100 mg PO DAILY [facility] Last Admin: 12/23/17 11:21 Dose: 100 mg Donepezil HCl (Aricept -) 5 mg PO HS [facility] Last Admin: 12/23/17 21:19 Dose: 5 mg Ferrous Sulfate (Feosol -) 325 mg PO TID [facility] Last Admin: 12/24/17 06:12 Dose: Not Given Heparin Sodium (Porcine) (Heparin -) 5,000 unit SQ BID [facility] Last Admin: 12/23/17 21:20 Dose: 5,000 unit Insulin Detemir (Levemir Vial) 15 units SQ AM [facility] Last Admin: 12/24/17 06:11 Dose: 15 units Lactobacillus Acidophilus (Bacid -) 1 tab PO BID [facility] Last Admin: 12/23/17 21:19 Dose: 1 tab Methylprednisolone Sodium Succinate (Solu-Medrol -) 40 mg IVPUSH Q6H-IV [facility] Last Admin: 12/24/17 02:13 Dose: 40 mg Paroxetine HCl (Paxil -) 40 mg PO HS [facility] Last Admin: 12/23/17 21:20 Dose: 40 mg Potassium Chloride (K-Dur -) 20 meq PO BID [facility] Last Admin: 12/23/17 21:20 Dose: 20 meq Spironolactone (Aldactone -) 25 mg PO BID [facility] Last Admin: 12/23/17 21:19 Dose: 25 mg Constitutional: Yes: NAD, awake and alert Cardiovascular: Yes: Regular Rate and Rhythm Respiratory: Yes: Scattered rhonchi and expiratory wheeze Gastrointestinal: Yes: Normal Bowel Sounds, Soft Musculoskeletal: Yes: WNL Extremities: Yes: WNL Edema: No Peripheral Pulses WNL: Yes Neurological: Yes: Alert, Oriented Psychiatric: Yes: Alert, Oriented Labs: Laboratory Results - last 24 hr 12/23/17 12/23/17 12/23/17 12:10 13:13 17:52 Sodium Potassium Chloride Carbon Dioxide Anion Gap BUN Creatinine POC Glucometer 169 112 Random Glucose Hemoglobin A1c % Calcium Ferritin B-Natriuretic Peptide 1306.50 H 12/23/17 12/24/17 12/24/17 20:58 06:00 06:00 Sodium 137 Potassium 3.7 Chloride 100 Carbon Dioxide 31 Anion Gap 6 L BUN 43 H Creatinine 1.1 H POC Glucometer 219 Random Glucose 150 H Hemoglobin A1c % 5.5 Calcium 8.2 L Ferritin 34.273 B-Natriuretic Peptide 12/24/17 06:09 Sodium Potassium Chloride Carbon Dioxide Anion Gap BUN Creatinine POC Glucometer 160 Random Glucose Hemoglobin A1c % Calcium Ferritin B-Natriuretic Peptide Problem List - Problems (1) COPD exacerbation Code(s): J44.1 - CHRONIC OBSTRUCTIVE PULMONARY DISEASE W (ACUTE) EXACERBATION (2) Acute on chronic respiratory failure with hypoxia and hypercapnia Code(s): J96.21 - ACUTE AND CHRONIC RESPIRATORY FAILURE WITH HYPOXIA; J96.22 - ACUTE AND CHRONIC RESPIRATORY FAILURE WITH HYPERCAPNIA (3) CHF (congestive heart failure) Code(s): I50.9 - HEART FAILURE, UNSPECIFIED (4) Dementia Code(s): F03.90 - UNSPECIFIED DEMENTIA WITHOUT BEHAVIORAL DISTURBANCE (5) Diabetes Code(s): E11.9 - TYPE 2 DIABETES MELLITUS WITHOUT COMPLICATIONS Qualifiers: Diabetes mellitus type: type 2 Diabetes mellitus complication status: without complication 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
[2017-12-24] MEDS: ATORVASTATIN CA 40 MG TABLET (FP) PO SCH (21:25)
[2017-12-24] MEDS: PARoxetine HCL 20 MG TABLET (FP) PO SCH (21:25)
[2017-12-24] MEDS: DONEPEZIL HCL 5 MG TABLET (FP) PO SCH (21:26)
--- NOTE | 2017-12-24 23:39 | CONSULT ---
Consult Consult Specialty:: ENDOCRINE Referred by:: PALMER AMOS NP Reason for Consultation:: DIABETES MELLITUS - History of Present Illness Chief Complaint: COUGH WEAKNESS AND CONGESTION WITH HIGH SUGARS History of Present Illness: 77 year old female with significant past medical history of hypertension. hyperlipidemia, diabetes mellitus, mitral valve prolapse, coronary artery disease, anemia, COPD on 2L O2, TIA, Alzheimer's dementia who presents to the emergency department from [facility], with worsening shortness of breath for 1 week. 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 Cardio/Vascular: Yes: CAD, HTN, Hyperlipdemia, Mitral Insufficiency Pulmonary: Yes: Bronchitis, COPD Gastrointestinal: Yes: Diverticulosis, GERD, GI Bleed (HISTORY OF IRON DEFICIENCY), Hiatal Hernia, Other (antral ulcer per 02/2016 EGD, occult gi bleeding, was to be scheduled for EUS and repeat capsule exam but patient has been not able to move forward seconadary to illness) Renal/: Yes: Renal Inusuff, Other (hyponatremia,hypokelemia and hypomagnesemia ) Psych: Yes: Depression Musculoskeletal: Yes: Chronic low back pain Endocrine: Yes: Diabetes Mellitus Dermatology: Yes: Other Additional Medical History: 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 - Past Surgical History Past Surgical History: Yes: Cholecystectomy, Colonoscopy, Joint Replacement, Upper Endoscopy - Alcohol/Substance Use Hx Alcohol Use: No History of Substance Use: reports: None - Smoking History Smoking history: Former smoker Have you smoked in the past 12 months: No Aproximately how many cigarettes per day: 10 If you are a former smoker, when did you quit?: 2017 - Social History Usual Living Arrangement: Long-Term ADL: Support Services (walks with walker) History of Recent Travel: No Home Medications - Allergies Allergies/Adverse Reactions: Allergies Allergy/AdvReac Type Severity Reaction Status Date / Time No Known Allergies Allergy Verified 08/18/16 16:17 - Home Medications Home Medications: Ambulatory Orders Ascorbate Calcium [Vitamin C] 500 mg PO BID 11/16/16 Aspirin [ASA -] 81 mg PO DAILY 11/16/16 Atorvastatin Ca [Lipitor] 40 mg PO HS 11/16/16 Cranberry Conc/Ascorbic Acid [Cranberry Concentrate Softgel] 1 each PO DAILY 04/27 Diltiazem Cd [Cardizem Cd -] 120 mg PO DAILY 11/16/16 Donepezil HCl 5 mg PO HS 11/16/16 Ferrous Sulfate 325 mg PO TID 11/16/16 Insulin (Levemir) [Levemir Vial] 15 unit SQ AM 11/16/16 Paroxetine HCl [Paxil] 40 mg PO HS 11/16/16 Potassium Chloride 20 meq PO BID 11/16/16 Calcium Carbonate/Vitamin D3 [Oyster Shell 500-Vit D3 200 Tb] 1 each PO DAILY Cholecalciferol (Vitamin D3) [Vitamin D3] 1 tab PO DAILY 12/22/17 Docusate Sodium [Colace] 100 mg PO DAILY 12/22/17 Ipratropium/Albuterol Sulfate [Iprat-Albut 0.5-3(2.5) mg/3 ml] 3 ml IN QID PRN 12/22/17 Lactobacillus Acidophilus [Bacid -] 250 mg PO BID 12/22/17 Mupirocin 1 gm TP DAILY 12/22/17 Spironolactone [Aldactone] 25 mg PO BID 12/22/17 Acetaminophen 650 mg PO Q6H PRN 12/23/17 Insulin Aspart [Novolog] 0 unit SQ QID PRN 12/23/17 Mirabegron [Myrbetriq] 50 mg PO DAILY 12/23/17 Review of Systems - Review of Systems Constitutional: reports: Lethargy, Weakness Eyes: reports: Blurred Vision HENT: reports: No Symptoms Neck: reports: No Symptoms Cardiovascular: reports: Shortness of Breath Respiratory: reports: SOB on Exertion, Wheezing Gastrointestinal: reports: Constipation, Nausea Genitourinary: reports: No Symptoms Breasts: reports: No Symptoms Reported Musculoskeletal: reports: Muscle Pain, Muscle Cramps Neurological: reports: Numbness, Weakness Endocrine: reports: Unexplained Weight Gain Physical Exam Vital Signs: Vital Signs Temperature 98.0 F 12/24/17 22:00 Pulse Rate 66 12/24/17 22:00 Respiratory Rate 18 12/24/17 22:00 Blood Pressure 159/77 12/24/17 22:00 O2 Sat by Pulse Oximetry (%) 99 12/24/17 17:21 Constitutional: Yes: Anxious Eyes: Yes: EOM Intact HENT: Yes: Normocephalic Neck: Yes: Trachea Midline Cardiovascular: Yes: Tachycardia Respiratory: Yes: Rhonchi, SOB, Tachypnea, Wheezes Gastrointestinal: Yes: Normal Bowel Sounds ...Rectal Exam: Yes: Deferred Renal/: Yes: WNL Breast(s): Yes: WNL Musculoskeletal: Yes: Joint Swelling, Muscle Pain, Muscle Weakness Extremities: Yes: WNL Edema: No Integumentary: Yes: WNL Neurological: Yes: Alert Psychiatric: Yes: Alert Labs: CBC, BMP 12/22/17 12:27 12/24/17 06:00 Problem List - Problems (1) Controlled diabetes mellitus with complication Code(s): E11.8 - TYPE 2 DIABETES MELLITUS WITH UNSPECIFIED COMPLICATIONS (2) Controlled diabetes mellitus type 2 with complications Code(s): E11.8 - TYPE 2 DIABETES MELLITUS WITH UNSPECIFIED COMPLICATIONS (3) COPD exacerbation Code(s): J44.1 - CHRONIC OBSTRUCTIVE PULMONARY DISEASE W (ACUTE) EXACERBATION (4) KINSEY (acute kidney injury) Code(s): N17.9 - ACUTE KIDNEY FAILURE, UNSPECIFIED (5) Acute on chronic respiratory failure with hypoxia and hypercapnia Code(s): J96.21 - ACUTE AND CHRONIC RESPIRATORY FAILURE WITH HYPOXIA; J96.22 - ACUTE AND CHRONIC RESPIRATORY FAILURE WITH HYPERCAPNIA (6) Kmree-am-gvxtloc kidney injury Code(s): N17.9 - ACUTE KIDNEY FAILURE, UNSPECIFIED; N18.9 - CHRONIC KIDNEY DISEASE, UNSPECIFIED Assessment/Plan Current Active Problems COPD exacerbation (Acute) Controlled diabetes mellitus type 2 with complications (Acute) Controlled diabetes mellitus with complication (Acute) Abnormal Lab Results 12/24/17 12/24/17 06:00 12:30 Anion Gap 6 L BUN 43 H Creatinine 1.1 H Random Glucose 150 H Calcium 8.2 L Serum Folate 25 H Laboratory Results - last 24 hr 12/24/17 12/24/17 12/24/17 06:00 06:00 06:09 Sodium 137 Potassium 3.7 Chloride 100 Carbon Dioxide 31 Anion Gap 6 L BUN 43 H Creatinine 1.1 H POC Glucometer 160 Random Glucose 150 H Hemoglobin A1c % 5.5 Calcium 8.2 L Ferritin 34.273 Serum Folate 12/24/17 12/24/17 12/24/17 12:29 12:30 17:38 Sodium Potassium Chloride Carbon Dioxide Anion Gap BUN Creatinine POC Glucometer 187 213 Random Glucose Hemoglobin A1c % Calcium Ferritin Serum Folate 25 H 12/24/17 21:39 Sodium Potassium Chloride Carbon Dioxide Anion Gap BUN Creatinine POC Glucometer 197 Random Glucose Hemoglobin A1c % Calcium Ferritin Serum Folate plan: bgm qid novolog insulin dose levemir 20 units am daily ck hba1c
[2017-12-25] MEDS: methylPREDNISolone NA SUCC 40 MG/1 ML VIAL IVPUSH SCH ×3 (01:25→17:59)
[2017-12-25] MEDS: FERROUS SO4 325 MG TABLET (FP) PO SCH ×3 (05:27→22:10)
[2017-12-25] MEDS: INSULIN DETEMIR 100 UNITS/ML MDV SQ SCH (06:12)
--- NOTE | 2017-12-25 07:36 | PN ---
Progress Note, Physician - Current Medication List Current Medications: Active Medications Acetaminophen (Tylenol -) 650 mg PO Q6H PRN PRN Reason: PAIN OR FEVER Last Admin: 12/24/17 14:09 Dose: 650 mg Albuterol Sulfate (Ventolin 0.083% Nebulizer Soln -) 1 amp NEB Q4H PRN PRN Reason: SHORT OF BREATH/WHEEZING Last Admin: 12/23/17 20:40 Dose: 1 amp Ascorbic Acid (Vitamin C -) 500 mg PO BID [facility] Last Admin: 12/24/17 21:26 Dose: 500 mg Aspirin (Asa -) 81 mg PO DAILY [facility] Last Admin: 12/24/17 11:12 Dose: 81 mg Atorvastatin Calcium (Lipitor -) 40 mg PO HS [facility] Last Admin: 12/24/17 21:25 Dose: 40 mg Diltiazem HCl (Cardizem Cd -) 120 mg PO DAILY [facility] Last Admin: 12/24/17 11:12 Dose: 120 mg Docusate Sodium (Colace -) 100 mg PO DAILY [facility] Last Admin: 12/24/17 11:12 Dose: 100 mg Donepezil HCl (Aricept -) 5 mg PO HS [facility] Last Admin: 12/24/17 21:26 Dose: 5 mg Ferrous Sulfate (Feosol -) 325 mg PO TID [facility] Last Admin: 12/25/17 05:27 Dose: 325 mg Heparin Sodium (Porcine) (Heparin -) 5,000 unit SQ BID [facility] Last Admin: 12/24/17 21:27 Dose: 5,000 unit Insulin Detemir (Levemir Vial) 20 units SQ AM [facility] Last Admin: 12/25/17 06:12 Dose: 20 units Lactobacillus Acidophilus (Bacid -) 1 tab PO BID [facility] Last Admin: 12/24/17 21:25 Dose: 1 tab Methylprednisolone Sodium Succinate (Solu-Medrol -) 40 mg IVPUSH Q8H-IV [facility] Last Admin: 12/25/17 01:25 Dose: 40 mg Paroxetine HCl (Paxil -) 40 mg PO HS [facility] Last Admin: 12/24/17 21:25 Dose: 40 mg Potassium Chloride (K-Dur -) 20 meq PO BID [facility] Last Admin: 12/24/17 21:26 Dose: 20 meq Spironolactone (Aldactone -) 25 mg PO BID [facility] Last Admin: 12/24/17 21:25 Dose: 25 mg - Objective Vital Signs: Vital Signs Temperature 97.6 F 12/25/17 07:10 Pulse Rate 66 12/25/17 07:10 Respiratory Rate 20 12/25/17 07:10 Blood Pressure 158/62 12/25/17 07:10 O2 Sat by Pulse Oximetry (%) 98 12/25/17 00:50 Cardiovascular: Yes: Regular Rate and Rhythm Respiratory: Yes: Diminished, On Nasal O2 Gastrointestinal: Yes: Normal Bowel Sounds, Soft Labs: CBC, BMP 12/22/17 12:27 12/24/17 06:00 INR, PTT INR 1.05 (0.82-1.09) 12/22/17 12:27 Assessment/Plan - Problems (1) COPD exacerbation Assessment/Plan: Influenza swab negative iv steroids changed to [id number] bid Nasal O2 Bipap PRN bronchodilators pulm eval Code(s): J44.1 - CHRONIC OBSTRUCTIVE PULMONARY DISEASE W (ACUTE) EXACERBATION (2) CHF (congestive heart failure) Assessment/Plan: -on spironolactone and cardizem -labs Code(s): I50.9 - HEART FAILURE, UNSPECIFIED (3) Diabetes Assessment/Plan: -last A1c at 5.5 -endocrinology consult -insulin SA and LA for now that she is on IV steroids -Diabetic diet -BGM Code(s): E11.9 - TYPE 2 DIABETES MELLITUS WITHOUT COMPLICATIONS Qualifiers: Diabetes mellitus type: type 2 Diabetes mellitus complication status: without complication Diabetes mellitus intermediate insulin use: without intermediate use Qualified Code(s): E11.9 - Type 2 diabetes mellitus without complications
[2017-12-25 08:07] LABS: SERUM IRON SATURATION 14 % (15-55); TOTAL IRON BINDING CAPACITY 346 ug/dL (250-450); UIBC 297 ug/dL (118-369)
[2017-12-25] MEDS: ALBUTEROL SO4 0.083% IH SOL 2.5 MG/3 ML VIAL.NEB. NEB PRN ×2 (08:40→20:50)
[2017-12-25] MEDS ORDERED: PT OWN MED DRAWER 7, Y5N ONE (08:52)
[2017-12-25] MEDS: SPIRONOLACTONE 25 MG TABLET (FP) PO SCH ×2 (11:10→22:10)
[2017-12-25] MEDS: POTASSIUM CHLORIDE TABS 20 MEQ TABLET.ER (FP) PO SCH ×2 (11:11→22:10)
[2017-12-25] MEDS: HEPARIN NA (PORCINE) 5,000 UNITS/ML 1ML VIAL SQ SCH ×2 (11:11→22:11)
[2017-12-25] MEDS: DOCUSATE SODIUM 100 MG CAPSULE (FP) PO SCH (11:11)
[2017-12-25] MEDS: LACTOBACILLUS ACIDOPHILUS 1 EACH TAB (FP) PO SCH ×2 (11:11→22:10)
[2017-12-25] MEDS: ASPIRIN 81 MG CHEWABLE TABLETS PO SCH (11:11)
[2017-12-25] MEDS: ASCORBIC ACID 500 MG TABLET (FP) PO SCH ×2 (11:12→22:10)
--- NOTE | 2017-12-25 15:58 | PN ---
Progress Note, Physician Chief Complaint: SOB/COUGH IMPROVED History of Present Illness: REVIEWED - Current Medication List Current Medications: Active Medications Acetaminophen (Tylenol -) 650 mg PO Q6H PRN PRN Reason: PAIN OR FEVER Last Admin: 12/24/17 14:09 Dose: 650 mg Albuterol Sulfate (Ventolin 0.083% Nebulizer Soln -) 1 amp NEB Q4H PRN PRN Reason: SHORT OF BREATH/WHEEZING Last Admin: 12/25/17 08:40 Dose: 1 amp Ascorbic Acid (Vitamin C -) 500 mg PO BID [facility] Last Admin: 12/25/17 11:12 Dose: 500 mg Aspirin (Asa -) 81 mg PO DAILY [facility] Last Admin: 12/25/17 11:11 Dose: 81 mg Atorvastatin Calcium (Lipitor -) 40 mg PO HS [facility] Last Admin: 12/24/17 21:25 Dose: 40 mg Diltiazem HCl (Cardizem Cd -) 120 mg PO DAILY [facility] Last Admin: 12/25/17 11:11 Dose: 120 mg Docusate Sodium (Colace -) 100 mg PO DAILY [facility] Last Admin: 12/25/17 11:11 Dose: 100 mg Donepezil HCl (Aricept -) 5 mg PO HS [facility] Last Admin: 12/24/17 21:26 Dose: 5 mg Ferrous Sulfate (Feosol -) 325 mg PO TID [facility] Last Admin: 12/25/17 14:42 Dose: 325 mg Heparin Sodium (Porcine) (Heparin -) 5,000 unit SQ BID [facility] Last Admin: 12/25/17 11:11 Dose: 5,000 unit Insulin Detemir (Levemir Vial) 20 units SQ AM [facility] Last Admin: 12/25/17 06:12 Dose: 20 units Lactobacillus Acidophilus (Bacid -) 1 tab PO BID [facility] Last Admin: 12/25/17 11:11 Dose: 1 tab Methylprednisolone Sodium Succinate (Solu-Medrol -) 40 mg IVPUSH Q8H-IV [facility] Last Admin: 12/25/17 11:11 Dose: 40 mg Paroxetine HCl (Paxil -) 40 mg PO HS [facility] Last Admin: 12/24/17 21:25 Dose: 40 mg Potassium Chloride (K-Dur -) 20 meq PO BID [facility] Last Admin: 12/25/17 11:11 Dose: 20 meq Spironolactone (Aldactone -) 25 mg PO BID [facility] Last Admin: 12/25/17 11:10 Dose: 25 mg - Objective Vital Signs: Vital Signs Temperature 98.6 F 12/25/17 14:30 Pulse Rate 84 12/25/17 14:30 Respiratory Rate 18 12/25/17 14:30 Blood Pressure 120/70 12/25/17 14:30 O2 Sat by Pulse Oximetry (%) 96 12/25/17 09:35 Constitutional: Yes: Calm Eyes: Yes: EOM Intact HENT: Yes: Normocephalic Neck: Yes: Trachea Midline Cardiovascular: Yes: Regular Rate and Rhythm, S1, S2 Respiratory: Yes: Rhonchi Gastrointestinal: Yes: Normal Bowel Sounds Edema: No Labs: CBC, BMP 12/22/17 12:27 12/24/17 06:00 INR, PTT INR 1.05 (0.82-1.09) 12/22/17 12:27 - ....Imaging Chest X-ray: Report Reviewed, Image Reviewed Problem List - Problems (1) COPD exacerbation Code(s): J44.1 - CHRONIC OBSTRUCTIVE PULMONARY DISEASE W (ACUTE) EXACERBATION (2) Acute on chronic respiratory failure with hypoxia and hypercapnia Code(s): J96.21 - ACUTE AND CHRONIC RESPIRATORY FAILURE WITH HYPOXIA; J96.22 - ACUTE AND CHRONIC RESPIRATORY FAILURE WITH HYPERCAPNIA (3) Anemia Code(s): D64.9 - ANEMIA, UNSPECIFIED Qualifiers: Anemia type: iron deficiency Iron deficiency anemia type: unspecified iron deficiency Qualified Code(s): D50.9 - Iron deficiency anemia, unspecified Assessment/Plan IMP ACUTE ON CHRONIC HYPOXIC RESPIRATORY FAILURE COPD EXACERBATION ASHD CHF DM HTN KINSEY PLAN IV STEROIDS TO TAPER INHALED BRONCHODILATORS O2 MONITOR OFF ABX: [facility]LLNESS [employer] Marie BLUM MD
--- NOTE | 2017-12-25 16:19 | DS ---
Physical Examination Vital Signs: Vital Signs Temperature 98.6 F 12/25/17 14:30 Pulse Rate 84 12/25/17 14:30 Respiratory Rate 18 12/25/17 14:30 Blood Pressure 120/70 12/25/17 14:30 O2 Sat by Pulse Oximetry (%) 96 12/25/17 09:35 Labs: CBC, BMP 12/22/17 12:27 12/24/17 06:00 Discharge Summary Reason For Visit: CHRONIC BRONCHITIS WITH EXACERBATION Current Active Problems COPD exacerbation (Acute) Controlled diabetes mellitus type 2 with complications (Acute) Controlled diabetes mellitus with complication (Acute) Hospital Course: 77 year old female with significant past medical history of hypertension. hyperlipidemia, diabetes mellitus, mitral valve prolapse, coronary artery disease, anemia, COPD on 2L O2, TIA, Alzheimer's dementia who presents [place] the emergency department [place] [facility], with worsening shortness of breath for 1 week. The patient states that her current symptoms feel similar to prior COPD flares. Pt denies CP, denies F/C. She states that she used her nebulizers at home with some relief. Pt received 2 nebulizers prior to arriving to Emergency Department, which she states helped to alleviate some of her symptoms. She denies leg swelling, recent travel, and sick contacts. 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 Cardiovascular: Yes: CAD, HTN, Hyperlipdemia, Mitral Insufficiency Pulmonary: Yes: Bronchitis, COPD Gastrointestinal: Yes: Diverticulosis, GERD, GI Bleed (HISTORY OF IRON DEFICIENCY), Hiatal Hernia, Other (antral ulcer per 02/2016 EGD, occult gi bleeding, was to be scheduled for EUS and repeat capsule exam but patient has been not able to move forward seconadary to illness) Renal/: Yes: Renal Inusuff, Other (hyponatremia,hypokelemia and hypomagnesemia ) Heme/Onc: Yes: Anemia Psych: Yes: Depression Musculoskeletal: Yes: Chronic low back pain Endocrine: Yes: Diabetes Mellitus Dermatology: Yes: Other - Past Surgical History Past Surgical History: Yes: Cholecystectomy, Colonoscopy, Joint Replacement, Upper Endoscopy - Smoking History Smoking history: Former smoker Have you smoked in the past 12 months: No - Problems (1) COPD exacerbation Assessment/Plan: Influenza swab negative iv steroids changed to I8G--won bid Nasal O2 Bipap PRN bronchodilators pulm eval Code(s): J44.1 - CHRONIC OBSTRUCTIVE PULMONARY DISEASE W (ACUTE) EXACERBATION (2) CHF (congestive heart failure) Assessment/Plan: -on spironolactone and cardizem -labs Code(s): I50.9 - HEART FAILURE, UNSPECIFIED (3) Diabetes Assessment/Plan: -last A1c at 5.5 -endocrinology consult -insulin SA and LA for now that she is on IV steroids -Diabetic diet -BGM Code(s): E11.9 - TYPE 2 DIABETES MELLITUS WITHOUT COMPLICATIONS Qualifiers: Diabetes mellitus type: type 2 Diabetes mellitus complication status: without complication Diabetes mellitus [facility] insulin use: without [facility]p use Qualified Code(s): E11.9 - Type 2 diabetes mellitus without complications Condition: Improved - Instructions Disposition: CUSTODIAL FACILITY - Home Medications Comprehensive Discharge Medication List: Ambulatory Orders Ascorbate Calcium [Vitamin C] 500 mg PO BID 11/16/16 Aspirin [ASA -] 81 mg PO DAILY 11/16/16 Atorvastatin Ca [Lipitor] 40 mg PO HS 11/16/16 Cranberry Conc/Ascorbic Acid [Cranberry Concentrate Softgel] 1 each PO DAILY 04/27 Diltiazem Cd [Cardizem Cd -] 120 mg PO DAILY 11/16/16 Donepezil HCl 5 mg PO HS 11/16/16 Ferrous Sulfate 325 mg PO TID 11/16/16 Insulin (Levemir) [Levemir Vial] 15 unit SQ AM 11/16/16 Paroxetine HCl [Paxil] 40 mg PO HS 11/16/16 Potassium Chloride 20 meq PO BID 11/16/16 Calcium Carbonate/Vitamin D3 [Oyster Shell 500-Vit D3 200 Tb] 1 each PO DAILY Cholecalciferol (Vitamin D3) [Vitamin D3] 1 tab PO DAILY 12/22/17 Docusate Sodium [Colace] 100 mg PO DAILY 12/22/17 Ipratropium/Albuterol Sulfate [Iprat-Albut 0.5-3(2.5) mg/3 ml] 3 ml IN QID PRN 12/22/17 Lactobacillus Acidophilus [Bacid -] 250 mg PO BID 12/22/17 Mupirocin 1 gm TP DAILY 12/22/17 Spironolactone [Aldactone] 25 mg PO BID 12/22/17 Acetaminophen 650 mg PO Q6H PRN 12/23/17 Insulin Aspart [Novolog] 0 unit SQ QID PRN 12/23/17 Mirabegron [Myrbetriq] 50 mg PO DAILY 12/23/17 Prednisone 10 mg PO BID #100 tablet 12/25/17
[2017-12-25] MEDS: ATORVASTATIN CA 40 MG TABLET (FP) PO SCH (22:10)
[2017-12-25] MEDS: PARoxetine HCL 20 MG TABLET (FP) PO SCH (22:10)
[2017-12-25] MEDS: DONEPEZIL HCL 5 MG TABLET (FP) PO SCH (22:10)
[2017-12-25] MEDS: INSULIN SLIDING SCALE (NOVOLOG) 1 VIAL SQ SCH (23:16)
[2017-12-26] MEDS: methylPREDNISolone NA SUCC 40 MG/1 ML VIAL IVPUSH SCH ×2 (01:19→10:16)
[2017-12-26] MEDS ORDERED: INSULIN (NOVOLOG) ASPART 100 UNITS/ML 10ML VIAL ONE ×2 (05:13→18:18)
[2017-12-26] MEDS: INSULIN SLIDING SCALE (NOVOLOG) 1 VIAL SQ SCH ×4 (06:07→22:43)
[2017-12-26] MEDS: FERROUS SO4 325 MG TABLET (FP) PO SCH ×3 (06:10→22:42)
[2017-12-26] MEDS: INSULIN DETEMIR 100 UNITS/ML MDV SQ SCH (06:11)
[2017-12-26] MEDS: POTASSIUM CHLORIDE TABS 20 MEQ TABLET.ER (FP) PO SCH ×2 (10:16→22:42)
[2017-12-26] MEDS: ASPIRIN 81 MG CHEWABLE TABLETS PO SCH (10:16)
[2017-12-26] MEDS: ASCORBIC ACID 500 MG TABLET (FP) PO SCH ×2 (10:16→22:42)
[2017-12-26] MEDS: LACTOBACILLUS ACIDOPHILUS 1 EACH TAB (FP) PO SCH ×2 (10:16→22:42)
[2017-12-26] MEDS: SPIRONOLACTONE 25 MG TABLET (FP) PO SCH ×2 (10:16→22:42)
[2017-12-26] MEDS: DOCUSATE SODIUM 100 MG CAPSULE (FP) PO SCH (10:19)
[2017-12-26] MEDS: HEPARIN NA (PORCINE) 5,000 UNITS/ML 1ML VIAL SQ SCH ×2 (10:19→22:43)
--- NOTE | 2017-12-26 11:40 | PN ---
Progress Note, Physician Chief Complaint: COPD exacerbation History of Present Illness: NAD, sitting in chair, breathing improved seen by Pulmonary, - Current Medication List Current Medications: Active Medications Acetaminophen (Tylenol -) 650 mg PO Q6H PRN PRN Reason: PAIN OR FEVER Last Admin: 12/24/17 14:09 Dose: 650 mg Albuterol Sulfate (Ventolin 0.083% Nebulizer Soln -) 1 amp NEB Q4H PRN PRN Reason: SHORT OF BREATH/WHEEZING Last Admin: 12/25/17 20:50 Dose: 1 amp Ascorbic Acid (Vitamin C -) 500 mg PO BID [facility] Last Admin: 12/26/17 10:16 Dose: 500 mg Aspirin (Asa -) 81 mg PO DAILY [facility] Last Admin: 12/26/17 10:16 Dose: 81 mg Atorvastatin Calcium (Lipitor -) 40 mg PO HS [facility] Last Admin: 12/25/17 22:10 Dose: 40 mg Diltiazem HCl (Cardizem Cd -) 120 mg PO DAILY [facility] Last Admin: 12/26/17 10:19 Dose: 120 mg Docusate Sodium (Colace -) 100 mg PO DAILY [facility] Last Admin: 12/26/17 10:19 Dose: 100 mg Donepezil HCl (Aricept -) 5 mg PO HS [facility] Last Admin: 12/25/17 22:10 Dose: 5 mg Ferrous Sulfate (Feosol -) 325 mg PO TID [facility] Last Admin: 12/26/17 06:10 Dose: 325 mg Heparin Sodium (Porcine) (Heparin -) 5,000 unit SQ BID [facility] Last Admin: 12/26/17 10:19 Dose: 5,000 unit Insulin Aspart (Novolog Vial Sliding Scale -) 1 vial SQ ACHS [facility] PRN Reason: Protocol Last Admin: 12/26/17 06:07 Dose: Not Given Insulin Detemir (Levemir Vial) 20 units SQ AM [facility] Last Admin: 12/26/17 06:11 Dose: 20 units Lactobacillus Acidophilus (Bacid -) 1 tab PO BID [facility] Last Admin: 12/26/17 10:16 Dose: 1 tab Methylprednisolone Sodium Succinate (Solu-Medrol -) 20 mg IVPUSH Q8H-IV [facility] Last Admin: 12/26/17 10:16 Dose: 20 mg Paroxetine HCl (Paxil -) 40 mg PO HS [facility] Last Admin: 12/25/17 22:10 Dose: 40 mg Potassium Chloride (K-Dur -) 20 meq PO BID [facility] Last Admin: 12/26/17 10:16 Dose: 20 meq Spironolactone (Aldactone -) 25 mg PO BID [facility] Last Admin: 12/26/17 10:16 Dose: 25 mg - Objective Vital Signs: Vital Signs Temperature 98.3 F 12/26/17 06:00 Pulse Rate 67 12/26/17 06:00 Respiratory Rate 20 12/26/17 06:00 Blood Pressure 147/66 12/26/17 06:00 O2 Sat by Pulse Oximetry (%) 96 12/26/17 01:00 Constitutional: Yes: Well Nourished, No Distress, Calm Cardiovascular: Yes: Regular Rate and Rhythm Respiratory: Yes: Regular Edema: No Peripheral Pulses WNL: Yes Neurological: Yes: Alert, Oriented Psychiatric: Yes: Alert, Oriented Labs: CBC, BMP 12/22/17 12:27 12/24/17 06:00 INR, PTT INR 1.05 (0.82-1.09) 12/22/17 12:27 Problem List - Problems (1) COPD exacerbation Assessment/Plan: Pulmonary consult, cahnge IV steroids to PO D/C back to [facility] tomorrow Code(s): J44.1 - CHRONIC OBSTRUCTIVE PULMONARY DISEASE W (ACUTE) EXACERBATION (2) CHF (congestive heart failure) Assessment/Plan: -on spironolactone and cardizem Code(s): I50.9 - HEART FAILURE, UNSPECIFIED (3) Diabetes Assessment/Plan: -last A1c at 5.5 -endocrinology consult -Diabetic diet -D/C BGM, Levemir and Novolog for now to avoid risk for hypoglycemia, she is off Steroids Code(s): E11.9 - TYPE 2 DIABETES MELLITUS WITHOUT COMPLICATIONS Qualifiers: Diabetes mellitus type: type 2 Diabetes mellitus complication status: without complication Diabetes mellitus correction insulin use: without correction use Qualified Code(s): E11.9 - Type 2 diabetes mellitus without complications Assessment/Plan see problem list
--- NOTE | 2017-12-26 11:48 | PN ---
Progress Note (short form) - Note Progress Note: Breathing continues to improve. No acute events overnight. Intake & Output 12/23/17 12/24/17 12/25/17 12/26/17 23:59 23:59 23:59 23:59 Intake Total 300 Balance 300 Weight 151 lb 139 lb 2 oz 140 lb 3 oz 143 lb 4.8 oz Last Vital Signs Temp Pulse Resp BP Pulse Ox 98.3 F 67 20 147/66 96 12/26/17 06:00 12/26/17 06:00 12/26/17 06:00 12/26/17 06:00 12/26/17 01:00 Active Medications Acetaminophen (Tylenol -) 650 mg PO Q6H PRN PRN Reason: PAIN OR FEVER Last Admin: 12/24/17 14:09 Dose: 650 mg Albuterol Sulfate (Ventolin 0.083% Nebulizer Soln -) 1 amp NEB Q4H PRN PRN Reason: SHORT OF BREATH/WHEEZING Last Admin: 12/25/17 20:50 Dose: 1 amp Ascorbic Acid (Vitamin C -) 500 mg PO BID [facility] Last Admin: 12/26/17 10:16 Dose: 500 mg Aspirin (Asa -) 81 mg PO DAILY [facility] Last Admin: 12/26/17 10:16 Dose: 81 mg Atorvastatin Calcium (Lipitor -) 40 mg PO HS [facility] Last Admin: 12/25/17 22:10 Dose: 40 mg Diltiazem HCl (Cardizem Cd -) 120 mg PO DAILY [facility] Last Admin: 12/26/17 10:19 Dose: 120 mg Docusate Sodium (Colace -) 100 mg PO DAILY [facility] Last Admin: 12/26/17 10:19 Dose: 100 mg Donepezil HCl (Aricept -) 5 mg PO HS [facility] Last Admin: 12/25/17 22:10 Dose: 5 mg Ferrous Sulfate (Feosol -) 325 mg PO TID [facility] Last Admin: 12/26/17 06:10 Dose: 325 mg Heparin Sodium (Porcine) (Heparin -) 5,000 unit SQ BID [facility] Last Admin: 12/26/17 10:19 Dose: 5,000 unit Insulin Aspart (Novolog Vial Sliding Scale -) 1 vial SQ ACHS [facility] PRN Reason: Protocol Last Admin: 12/26/17 06:07 Dose: Not Given Insulin Detemir (Levemir Vial) 20 units SQ AM [facility] Last Admin: 12/26/17 06:11 Dose: 20 units Lactobacillus Acidophilus (Bacid -) 1 tab PO BID [facility] Last Admin: 12/26/17 10:16 Dose: 1 tab Methylprednisolone Sodium Succinate (Solu-Medrol -) 20 mg IVPUSH Q8H-IV [facility] Last Admin: 12/26/17 10:16 Dose: 20 mg Paroxetine HCl (Paxil -) 40 mg PO HS [facility] Last Admin: 12/25/17 22:10 Dose: 40 mg Potassium Chloride (K-Dur -) 20 meq PO BID [facility] Last Admin: 12/26/17 10:16 Dose: 20 meq Spironolactone (Aldactone -) 25 mg PO BID [facility] Last Admin: 12/26/17 10:16 Dose: 25 mg Constitutional: Yes: NAD, awake and alert Cardiovascular: Yes: Regular Rate and Rhythm Respiratory: Yes: Scattered rhonchi, no expiratory wheeze Gastrointestinal: Yes: Normal Bowel Sounds, Soft Musculoskeletal: Yes: WNL Extremities: Yes: WNL Edema: No Peripheral Pulses WNL: Yes Neurological: Yes: Alert, Oriented Psychiatric: Yes: Alert, Oriented Labs: Laboratory Results - last 24 hr 12/25/17 12/25/17 12/25/17 11:31 17:43 22:12 POC Glucometer 236 252 328 12/26/17 12/26/17 06:06 11:17 POC Glucometer 118 239 Problem List - Problems (1) COPD exacerbation Code(s): J44.1 - CHRONIC OBSTRUCTIVE PULMONARY DISEASE W (ACUTE) EXACERBATION (2) Acute on chronic respiratory failure with hypoxia and hypercapnia Code(s): J96.21 - ACUTE AND CHRONIC RESPIRATORY FAILURE WITH HYPOXIA; J96.22 - ACUTE AND CHRONIC RESPIRATORY FAILURE WITH HYPERCAPNIA (3) CHF (congestive heart failure) Code(s): I50.9 - HEART FAILURE, UNSPECIFIED (4) Dementia Code(s): F03.90 - UNSPECIFIED DEMENTIA WITHOUT BEHAVIORAL DISTURBANCE (5) Diabetes Code(s): E11.9 - TYPE 2 DIABETES MELLITUS WITHOUT COMPLICATIONS Qualifiers: Diabetes mellitus type: type 2 Diabetes mellitus complication status: without complication Diabetes mellitus termite control servicer insulin use: without long-term use Qualified Code(s): E11.9 - Type 2 diabetes mellitus without complications (6) KINSEY (acute kidney injury) Code(s): N17.9 - ACUTE KIDNEY FAILURE, UNSPECIFIED IMP ACUTE ON CHRONIC HYPOXIC RESPIRATORY FAILURE COPD EXACERBATION ASHD CHF DM HTN KINSEY PLAN PREDNISONE TAPER INHALED BRONCHODILATORS O2 D/C TO SNF DR FISCHER
[2017-12-26] MEDS: ALBUTEROL SO4 0.083% IH SOL 2.5 MG/3 ML VIAL.NEB. NEB PRN ×2 (17:15→21:35)
[2017-12-26] MEDS: ATORVASTATIN CA 40 MG TABLET (FP) PO SCH (22:42)
[2017-12-26] MEDS: DONEPEZIL HCL 5 MG TABLET (FP) PO SCH (22:42)
[2017-12-26] MEDS: PARoxetine HCL 20 MG TABLET (FP) PO SCH (22:42)
[2017-12-27] MEDS: FERROUS SO4 325 MG TABLET (FP) PO SCH ×3 (05:41→22:15)
[2017-12-27] MEDS: INSULIN DETEMIR 100 UNITS/ML MDV SQ SCH (06:43)
[2017-12-27] MEDS: INSULIN SLIDING SCALE (NOVOLOG) 1 VIAL SQ SCH (06:43)
[2017-12-27] MEDS: ALBUTEROL SO4 0.083% IH SOL 2.5 MG/3 ML VIAL.NEB. NEB PRN ×3 (07:45→19:42)
--- NOTE | 2017-12-27 10:50 | PN ---
Progress Note, Physician Chief Complaint: COPD exacerbation History of Present Illness: NAD, sitting in chair, breathing improved seen by Pulmonary, - Current Medication List Current Medications: Active Medications Acetaminophen (Tylenol -) 650 mg PO Q6H PRN PRN Reason: PAIN OR FEVER Last Admin: 12/24/17 14:09 Dose: 650 mg Albuterol Sulfate (Ventolin 0.083% Nebulizer Soln -) 1 amp NEB Q4H PRN PRN Reason: SHORT OF BREATH/WHEEZING Last Admin: 12/26/17 21:35 Dose: 1 amp Ascorbic Acid (Vitamin C -) 500 mg PO BID [facility] Last Admin: 12/26/17 22:42 Dose: 500 mg Aspirin (Asa -) 81 mg PO DAILY [facility] Last Admin: 12/26/17 10:16 Dose: 81 mg Atorvastatin Calcium (Lipitor -) 40 mg PO HS [facility] Last Admin: 12/26/17 22:42 Dose: 40 mg Diltiazem HCl (Cardizem Cd -) 120 mg PO DAILY [facility] Last Admin: 12/26/17 10:19 Dose: 120 mg Docusate Sodium (Colace -) 100 mg PO DAILY [facility] Last Admin: 12/26/17 10:19 Dose: 100 mg Donepezil HCl (Aricept -) 5 mg PO HS [facility] Last Admin: 12/26/17 22:42 Dose: 5 mg Ferrous Sulfate (Feosol -) 325 mg PO TID [facility] Last Admin: 12/27/17 05:41 Dose: 325 mg Heparin Sodium (Porcine) (Heparin -) 5,000 unit SQ BID [facility] Last Admin: 12/26/17 22:43 Dose: 5,000 unit Lactobacillus Acidophilus (Bacid -) 1 tab PO BID [facility] Last Admin: 12/26/17 22:42 Dose: 1 tab Paroxetine HCl (Paxil -) 40 mg PO HS [facility] Last Admin: 12/26/17 22:42 Dose: 40 mg Potassium Chloride (K-Dur -) 20 meq PO BID [facility] Last Admin: 12/26/17 22:42 Dose: 20 meq Spironolactone (Aldactone -) 25 mg PO BID [facility] Last Admin: 12/26/17 22:42 Dose: 25 mg - Objective Vital Signs: Vital Signs Temperature 97.9 F 12/27/17 06:00 Pulse Rate 81 12/27/17 06:00 Respiratory Rate 20 12/27/17 06:00 Blood Pressure 144/54 12/27/17 06:00 O2 Sat by Pulse Oximetry (%) 100 12/27/17 05:34 Constitutional: Yes: Well Nourished, No Distress, Calm Cardiovascular: Yes: Regular Rate and Rhythm Respiratory: Yes: Regular Gastrointestinal: Yes: Normal Bowel Sounds, Soft Musculoskeletal: Yes: WNL Extremities: Yes: WNL Edema: No Peripheral Pulses WNL: Yes Neurological: Yes: Alert, Oriented Psychiatric: Yes: Alert, Oriented Labs: CBC, BMP 12/22/17 12:27 12/24/17 06:00 INR, PTT INR 1.05 (0.82-1.09) 12/22/17 12:27 Problem List - Problems (1) COPD exacerbation Assessment/Plan: Pulmonary consult, cahnge IV steroids to PO D/C back to [facility] tomorrow Code(s): J44.1 - CHRONIC OBSTRUCTIVE PULMONARY DISEASE W (ACUTE) EXACERBATION (2) CHF (congestive heart failure) Assessment/Plan: -on spironolactone and cardizem Code(s): I50.9 - HEART FAILURE, UNSPECIFIED (3) Diabetes Assessment/Plan: -last A1c at 5.5 -endocrinology consult -Diabetic diet -D/C BGM, Levemir and Novolog for now to avoid risk for hypoglycemia, she is off Steroids Code(s): E11.9 - TYPE 2 DIABETES MELLITUS WITHOUT COMPLICATIONS Qualifiers: Diabetes mellitus type: type 2 Diabetes mellitus complication status: without complication Diabetes mellitus terminal operations supervisor insulin use: without terminal operations supervisor use Qualified Code(s): E11.9 - Type 2 diabetes mellitus without complications Assessment/Plan see problem list
[2017-12-27] MEDS: SPIRONOLACTONE 25 MG TABLET (FP) PO SCH ×2 (12:01→22:16)
[2017-12-27] MEDS: ASCORBIC ACID 500 MG TABLET (FP) PO SCH ×2 (12:01→22:15)
[2017-12-27] MEDS: LACTOBACILLUS ACIDOPHILUS 1 EACH TAB (FP) PO SCH ×2 (12:02→22:16)
[2017-12-27] MEDS: POTASSIUM CHLORIDE TABS 20 MEQ TABLET.ER (FP) PO SCH ×2 (12:02→22:15)
[2017-12-27] MEDS: HEPARIN NA (PORCINE) 5,000 UNITS/ML 1ML VIAL SQ SCH ×2 (12:02→22:16)
[2017-12-27] MEDS: DOCUSATE SODIUM 100 MG CAPSULE (FP) PO SCH (12:02)
[2017-12-27] MEDS: ASPIRIN 81 MG CHEWABLE TABLETS PO SCH (12:02)
--- NOTE | 2017-12-27 12:03 | PN ---
Progress Note, Physician Chief Complaint: SOB/COUGH IMPROVED History of Present Illness: REVIEWED - Current Medication List Current Medications: Active Medications Acetaminophen (Tylenol -) 650 mg PO Q6H PRN PRN Reason: PAIN OR FEVER Last Admin: 12/24/17 14:09 Dose: 650 mg Albuterol Sulfate (Ventolin 0.083% Nebulizer Soln -) 1 amp NEB Q4H PRN PRN Reason: SHORT OF BREATH/WHEEZING Last Admin: 12/27/17 07:45 Dose: 1 amp Ascorbic Acid (Vitamin C -) 500 mg PO BID [facility] Last Admin: 12/26/17 22:42 Dose: 500 mg Aspirin (Asa -) 81 mg PO DAILY [facility] Last Admin: 12/26/17 10:16 Dose: 81 mg Atorvastatin Calcium (Lipitor -) 40 mg PO HS [facility] Last Admin: 12/26/17 22:42 Dose: 40 mg Diltiazem HCl (Cardizem Cd -) 120 mg PO DAILY [facility] Last Admin: 12/26/17 10:19 Dose: 120 mg Docusate Sodium (Colace -) 100 mg PO DAILY [facility] Last Admin: 12/26/17 10:19 Dose: 100 mg Donepezil HCl (Aricept -) 5 mg PO HS [facility] Last Admin: 12/26/17 22:42 Dose: 5 mg Ferrous Sulfate (Feosol -) 325 mg PO TID [facility] Last Admin: 12/27/17 05:41 Dose: 325 mg Heparin Sodium (Porcine) (Heparin -) 5,000 unit SQ BID [facility] Last Admin: 12/26/17 22:43 Dose: 5,000 unit Lactobacillus Acidophilus (Bacid -) 1 tab PO BID [facility] Last Admin: 12/26/17 22:42 Dose: 1 tab Paroxetine HCl (Paxil -) 40 mg PO HS [facility] Last Admin: 12/26/17 22:42 Dose: 40 mg Potassium Chloride (K-Dur -) 20 meq PO BID [facility] Last Admin: 12/26/17 22:42 Dose: 20 meq Spironolactone (Aldactone -) 25 mg PO BID [facility] Last Admin: 12/26/17 22:42 Dose: 25 mg - Objective Vital Signs: Vital Signs Temperature 97.9 F 12/27/17 06:00 Pulse Rate 81 12/27/17 06:00 Respiratory Rate 20 12/27/17 06:00 Blood Pressure 144/54 12/27/17 06:00 O2 Sat by Pulse Oximetry (%) 100 12/27/17 05:34 Constitutional: Yes: Anxious Eyes: Yes: EOM Intact HENT: Yes: Normocephalic Neck: Yes: Trachea Midline Cardiovascular: Yes: S1, S2 Respiratory: Yes: Diminished, Rhonchi Gastrointestinal: Yes: Normal Bowel Sounds Edema: No Neurological: Yes: Alert Labs: CBC, BMP 12/22/17 12:27 12/24/17 06:00 INR, PTT INR 1.05 (0.82-1.09) 12/22/17 12:27 - ....Imaging Chest X-ray: Report Reviewed, Image Reviewed EKG: Report Reviewed, Image Reviewed Problem List - Problems (1) COPD exacerbation Code(s): J44.1 - CHRONIC OBSTRUCTIVE PULMONARY DISEASE W (ACUTE) EXACERBATION (2) Acute on chronic respiratory failure with hypoxia and hypercapnia Code(s): J96.21 - ACUTE AND CHRONIC RESPIRATORY FAILURE WITH HYPOXIA; J96.22 - ACUTE AND CHRONIC RESPIRATORY FAILURE WITH HYPERCAPNIA (3) Anemia Code(s): D64.9 - ANEMIA, UNSPECIFIED Qualifiers: Anemia type: iron deficiency Iron deficiency anemia type: unspecified iron deficiency Qualified Code(s): D50.9 - Iron deficiency anemia, unspecified Assessment/Plan IMP ACUTE ON CHRONIC HYPOXIC RESPIRATORY FAILURE COPD EXACERBATION ASHD CHF DM HTN KINSEY PLAN INHALED BRONCHODILATORS O2 MONITOR OFF ABX: [facility] DISCHARGE PLANNING Marie BLUM MD
[2017-12-27] MEDS: ATORVASTATIN CA 40 MG TABLET (FP) PO SCH (22:15)
[2017-12-27] MEDS: DONEPEZIL HCL 5 MG TABLET (FP) PO SCH (22:15)
[2017-12-27] MEDS: PARoxetine HCL 20 MG TABLET (FP) PO SCH (22:15)
[2017-12-28] MEDS: FERROUS SO4 325 MG TABLET (FP) PO SCH ×3 (05:29→21:13)
[2017-12-28 09:51] LABS: ALBUMIN 2.6 g/dl (3.4-5.0); ALK PHOS 84 U/L (45-117); ANION GAP 7 (8-16); BILIRUBIN,TOTAL 0.7 mg/dL (0.2-1.0); BLOOD UREA NITROGEN 25 mg/dL (7-18); CALCIUM 8.2 mg/dL (8.5-10.1); CHLORIDE 92 mmol/L (98-107); CO2 35 mmol/L (21-32); GLUCOSE,RANDOM 75 mg/dL (74-106); POTASSIUM 3.6 mmol/L (3.5-5.1); SGOT/AST 8 U/L (15-37); SGPT/ALT 11 U/L (12-78); SODIUM 134 mmol/L (136-145); TOT PROT 6.1 g/dl (6.4-8.2)
--- NOTE | 2017-12-28 10:49 | PN ---
Progress Note (short form) - Note Progress Note: No acute events overnight. Breathing appears stable on NC O2. Has not used NIPPV. Intake & Output 12/25/17 12/26/17 12/27/17 12/28/17 23:59 23:59 23:59 23:59 Intake Total 300 200 450 Output Total 200 Balance 300 0 450 Weight 140 lb 3 oz 143 lb 4.8 oz 139 lb 11.2 oz 139 lb 4.8 oz Last Vital Signs Temp Pulse Resp BP Pulse Ox 97.4 F L 108 H 20 108/59 100 12/28/17 06:00 12/28/17 06:00 12/28/17 06:00 12/28/17 06:00 12/27/17 05:34 Active Medications Acetaminophen (Tylenol -) 650 mg PO Q6H PRN PRN Reason: PAIN OR FEVER Last Admin: 12/24/17 14:09 Dose: 650 mg Albuterol Sulfate (Ventolin 0.083% Nebulizer Soln -) 1 amp NEB Q4H PRN PRN Reason: SHORT OF BREATH/WHEEZING Last Admin: 12/27/17 19:42 Dose: 1 amp Ascorbic Acid (Vitamin C -) 500 mg PO BID [facility] Last Admin: 12/27/17 22:15 Dose: 500 mg Aspirin (Asa -) 81 mg PO DAILY [facility] Last Admin: 12/27/17 12:02 Dose: 81 mg Atorvastatin Calcium (Lipitor -) 40 mg PO HS [facility] Last Admin: 12/27/17 22:15 Dose: 40 mg Diltiazem HCl (Cardizem Cd -) 120 mg PO DAILY [facility] Last Admin: 12/27/17 12:01 Dose: 120 mg Docusate Sodium (Colace -) 100 mg PO DAILY [facility] Last Admin: 12/27/17 12:02 Dose: 100 mg Donepezil HCl (Aricept -) 5 mg PO HS [facility] Last Admin: 12/27/17 22:15 Dose: 5 mg Ferrous Sulfate (Feosol -) 325 mg PO TID [facility] Last Admin: 12/28/17 05:29 Dose: 325 mg Heparin Sodium (Porcine) (Heparin -) 5,000 unit SQ BID [facility] Last Admin: 12/27/17 22:16 Dose: 5,000 unit Lactobacillus Acidophilus (Bacid -) 1 tab PO BID [facility] Last Admin: 12/27/17 22:16 Dose: 1 tab Paroxetine HCl (Paxil -) 40 mg PO [facility] Last Admin: 12/27/17 22:15 Dose: 40 mg Potassium Chloride (K-Dur -) 20 meq PO BID [facility] Last Admin: 12/27/17 22:15 Dose: 20 meq Spironolactone (Aldactone -) 25 mg PO BID [facility] Last Admin: 12/27/17 22:16 Dose: 25 mg Constitutional: Yes: NAD, awake and alert Cardiovascular: Yes: Regular Rate and Rhythm Respiratory: Yes: Scattered rhonchi, no expiratory wheeze Gastrointestinal: Yes: Normal Bowel Sounds, Soft Musculoskeletal: Yes: WNL Extremities: Yes: WNL Edema: No Peripheral Pulses WNL: Yes Neurological: Yes: Alert, Oriented Psychiatric: Yes: Alert, Oriented Labs: Laboratory Results - last 24 hr 12/27/17 12/27/17 12/28/17 12:33 21:21 09:17 Sodium 134 L Potassium 3.6 Chloride 92 L Carbon Dioxide 35 H Anion Gap 7 L BUN 25 H Creatinine 1.0 Creat Clearance w eGFR 53.62 POC Glucometer 198 92 Random Glucose 75 Calcium 8.2 L Total Bilirubin 0.7 D AST 8 L ALT 11 L Alkaline Phosphatase 84 Total Protein 6.1 L Albumin 2.6 L Problem List - Problems (1) COPD exacerbation Code(s): J44.1 - CHRONIC OBSTRUCTIVE PULMONARY DISEASE W (ACUTE) EXACERBATION (2) Acute on chronic respiratory failure with hypoxia and hypercapnia Code(s): J96.21 - ACUTE AND CHRONIC RESPIRATORY FAILURE WITH HYPOXIA; J96.22 - ACUTE AND CHRONIC RESPIRATORY FAILURE WITH HYPERCAPNIA (3) CHF (congestive heart failure) Code(s): I50.9 - HEART FAILURE, UNSPECIFIED (4) Dementia Code(s): F03.90 - UNSPECIFIED DEMENTIA WITHOUT BEHAVIORAL DISTURBANCE (5) Diabetes Code(s): E11.9 - TYPE 2 DIABETES MELLITUS WITHOUT COMPLICATIONS Qualifiers: Diabetes mellitus type: type 2 Diabetes mellitus complication status: without complication Diabetes mellitus oysterman insulin use: without oysterman use Qualified Code(s): E11.9 - Type 2 diabetes mellitus without complications (6) KINSEY (acute kidney injury) Code(s): N17.9 - ACUTE KIDNEY FAILURE, UNSPECIFIED IMP ACUTE ON CHRONIC HYPOXIC RESPIRATORY FAILURE COPD EXACERBATION ASHD CHF DM HTN KINSEY PLAN STEROIDS BEING HELD DUE TO POSSIBLE CONTRIBUTION TO DELERIUM/AGITATION YESTERDAY: MONITOR INHALED BRONCHODILATORS O2 D/C TO SNF DR FISCHER
[2017-12-28] MEDS: DOCUSATE SODIUM 100 MG CAPSULE (FP) PO SCH (10:57)
[2017-12-28] MEDS: ASCORBIC ACID 500 MG TABLET (FP) PO SCH ×2 (10:57→21:13)
[2017-12-28] MEDS: LACTOBACILLUS ACIDOPHILUS 1 EACH TAB (FP) PO SCH ×2 (10:57→21:14)
[2017-12-28] MEDS: ASPIRIN 81 MG CHEWABLE TABLETS PO SCH (10:57)
[2017-12-28] MEDS: SPIRONOLACTONE 25 MG TABLET (FP) PO SCH ×2 (10:57→21:13)
[2017-12-28] MEDS: HEPARIN NA (PORCINE) 5,000 UNITS/ML 1ML VIAL SQ SCH ×2 (10:58→21:15)
[2017-12-28] MEDS: POTASSIUM CHLORIDE TABS 20 MEQ TABLET.ER (FP) PO SCH ×2 (10:58→21:13)
--- NOTE | 2017-12-28 12:09 | PN ---
Progress Note, Physician - Current Medication List Current Medications: Active Medications Acetaminophen (Tylenol -) 650 mg PO Q6H PRN PRN Reason: PAIN OR FEVER Last Admin: 12/24/17 14:09 Dose: 650 mg Albuterol Sulfate (Ventolin 0.083% Nebulizer Soln -) 1 amp NEB Q4H PRN PRN Reason: SHORT OF BREATH/WHEEZING Last Admin: 12/27/17 19:42 Dose: 1 amp Ascorbic Acid (Vitamin C -) 500 mg PO BID [facility] Last Admin: 12/28/17 10:57 Dose: 500 mg Aspirin (Asa -) 81 mg PO DAILY [facility] Last Admin: 12/28/17 10:57 Dose: 81 mg Atorvastatin Calcium (Lipitor -) 40 mg PO HS [facility] Last Admin: 12/27/17 22:15 Dose: 40 mg Diltiazem HCl (Cardizem Cd -) 120 mg PO DAILY [facility] Last Admin: 12/28/17 10:57 Dose: 120 mg Docusate Sodium (Colace -) 100 mg PO DAILY [facility] Last Admin: 12/28/17 10:57 Dose: 100 mg Donepezil HCl (Aricept -) 5 mg PO HS [facility] Last Admin: 12/27/17 22:15 Dose: 5 mg Ferrous Sulfate (Feosol -) 325 mg PO TID [facility] Last Admin: 12/28/17 05:29 Dose: 325 mg Heparin Sodium (Porcine) (Heparin -) 5,000 unit SQ BID [facility] Last Admin: 12/28/17 10:58 Dose: 5,000 unit Ceftriaxone Sodium 2 gm/ (Dextrose) 100 mls @ 200 mls/hr IVPB DAILY [facility] Lactobacillus Acidophilus (Bacid -) 1 tab PO BID [facility] Last Admin: 12/28/17 10:57 Dose: 1 tab Paroxetine HCl (Paxil -) 40 mg PO HS [facility] Last Admin: 12/27/17 22:15 Dose: 40 mg Potassium Chloride (K-Dur -) 20 meq PO BID [facility] Last Admin: 12/28/17 10:58 Dose: 20 meq Spironolactone (Aldactone -) 25 mg PO BID [facility] Last Admin: 12/28/17 10:57 Dose: 25 mg - Objective Vital Signs: Vital Signs Temperature 97.4 F L 12/28/17 06:00 Pulse Rate 108 H 12/28/17 06:00 Respiratory Rate 20 12/28/17 06:00 Blood Pressure 108/59 12/28/17 06:00 O2 Sat by Pulse Oximetry (%) 100 12/27/17 05:34 Cardiovascular: Yes: S1, S2 Respiratory: Yes: Rhonchi Gastrointestinal: Yes: Normal Bowel Sounds, Soft Labs: CBC, BMP 12/22/17 12:27 12/28/17 09:17 INR, PTT INR 1.05 (0.82-1.09) 12/22/17 12:27 Assessment/Plan - Problems (1) COPD exacerbation Assessment/Plan: Influenza swab negative iv steroids changed to [id number]--vdo bid Nasal O2 Bipap PRN bronchodilators pulm eval cxr--r/o pna Code(s): J44.1 - CHRONIC OBSTRUCTIVE PULMONARY DISEASE W (ACUTE) EXACERBATION (2) CHF (congestive heart failure) Assessment/Plan: -on spironolactone and cardizem -labs Code(s): I50.9 - HEART FAILURE, UNSPECIFIED (3) Diabetes Assessment/Plan: -last A1c at 5.5 -endocrinology consult -insulin SA and LA for now that she is on IV steroids -Diabetic diet -BGM Code(s): E11.9 - TYPE 2 DIABETES MELLITUS WITHOUT COMPLICATIONS Qualifiers: Diabetes mellitus type: type 2 Diabetes mellitus complication status: without complication Diabetes mellitus long-term insulin use: without supervisor intermediates use Qualified Code(s): E11.9 - Type 2 diabetes mellitus without complications
[2017-12-28] MEDS ORDERED: CEFTRIAXONE 2 GM/100 ML BAG IVPB SCH (12:45)
[2017-12-28] MEDS: PARoxetine HCL 20 MG TABLET (FP) PO SCH (21:13)
[2017-12-28] MEDS: ATORVASTATIN CA 40 MG TABLET (FP) PO SCH (21:13)
[2017-12-28] MEDS: DONEPEZIL HCL 5 MG TABLET (FP) PO SCH (21:14)
[2017-12-28] MEDS: ALBUTEROL SO4 0.083% IH SOL 2.5 MG/3 ML VIAL.NEB. NEB PRN (22:30)
[2017-12-29] MEDS: FERROUS SO4 325 MG TABLET (FP) PO SCH ×3 (05:20→22:03)
[2017-12-29] MEDS: ALBUTEROL SO4 0.083% IH SOL 2.5 MG/3 ML VIAL.NEB. NEB PRN ×2 (07:45→14:34)
--- NOTE | 2017-12-29 09:16 | PN ---
Progress Note, Physician - Current Medication List Current Medications: Active Medications Acetaminophen (Tylenol -) 650 mg PO Q6H PRN PRN Reason: PAIN OR FEVER Last Admin: 12/24/17 14:09 Dose: 650 mg Albuterol Sulfate (Ventolin 0.083% Nebulizer Soln -) 1 amp NEB Q4H PRN PRN Reason: SHORT OF BREATH/WHEEZING Last Admin: 12/29/17 07:45 Dose: 1 amp Ascorbic Acid (Vitamin C -) 500 mg PO BID [facility] Last Admin: 12/28/17 21:13 Dose: 500 mg Aspirin (Asa -) 81 mg PO DAILY [facility] Last Admin: 12/28/17 10:57 Dose: 81 mg Atorvastatin Calcium (Lipitor -) 40 mg PO HS [facility] Last Admin: 12/28/17 21:13 Dose: 40 mg Diltiazem HCl (Cardizem Cd -) 120 mg PO DAILY [facility] Last Admin: 12/28/17 10:57 Dose: 120 mg Docusate Sodium (Colace -) 100 mg PO DAILY [facility] Last Admin: 12/28/17 10:57 Dose: 100 mg Donepezil HCl (Aricept -) 5 mg PO HS [facility] Last Admin: 12/28/17 21:14 Dose: 5 mg Ferrous Sulfate (Feosol -) 325 mg PO TID [facility] Last Admin: 12/29/17 05:20 Dose: 325 mg Heparin Sodium (Porcine) (Heparin -) 5,000 unit SQ BID [facility] Last Admin: 12/28/17 21:15 Dose: 5,000 unit CEFTRIAXONE IN IS-OSM DEXTROSE (Ceftriaxone 2 Gm-D5w Bag) 2 gm in 50 mls @ 200 mls/hr IVPB DAILY [facility] Lactobacillus Acidophilus (Bacid -) 1 tab PO BID [facility] Last Admin: 12/28/17 21:14 Dose: 1 tab Paroxetine HCl (Paxil -) 40 mg PO HS [facility] Last Admin: 12/28/17 21:13 Dose: 40 mg Potassium Chloride (K-Dur -) 20 meq PO BID [facility] Last Admin: 12/28/17 21:13 Dose: 20 meq Spironolactone (Aldactone -) 25 mg PO BID [facility] Last Admin: 12/28/17 21:13 Dose: 25 mg - Objective Vital Signs: Vital Signs Temperature 98.2 F 12/28/17 22:00 Pulse Rate 80 12/28/17 22:00 Respiratory Rate 20 12/28/17 22:00 Blood Pressure 122/67 12/28/17 22:00 O2 Sat by Pulse Oximetry (%) 96 12/29/17 06:13 Cardiovascular: Yes: Regular Rate and Rhythm Respiratory: Yes: Rhonchi Gastrointestinal: Yes: Normal Bowel Sounds, Soft Labs: CBC, BMP 12/22/17 12:27 12/28/17 09:17 INR, PTT INR 1.05 (0.82-1.09) 12/22/17 12:27 Assessment/Plan - Problems (1) COPD exacerbation Assessment/Plan: Influenza swab negative iv steroids changed to Y6Q--dcd bid Nasal O2 Bipap PRN bronchodilators pulm eval cxr--r/o pna Code(s): J44.1 - CHRONIC OBSTRUCTIVE PULMONARY DISEASE W (ACUTE) EXACERBATION (2) CHF (congestive heart failure) Assessment/Plan: -on spironolactone and cardizem -labs Code(s): I50.9 - HEART FAILURE, UNSPECIFIED (3) Diabetes Assessment/Plan: -last A1c at 5.5 -endocrinology consult -insulin SA and LA for now that she is on IV steroids -Diabetic diet -BGM Code(s): E11.9 - TYPE 2 DIABETES MELLITUS WITHOUT COMPLICATIONS Qualifiers: Diabetes mellitus type: type 2 Diabetes mellitus complication status: without complication Diabetes mellitus extermination inspector insulin use: without extermination inspector use Qualified Code(s): E11.9 - Type 2 diabetes mellitus without complications (4) Pneumonia Assessment/Plan: -Iv abx -ct of chest -wbc improved
--- NOTE | 2017-12-29 10:59 | PN ---
Progress Note (short form) - Note Progress Note: No acute events overnight. Breathing appears stable on NC O2. CXR: 12/28: BOBBY infiltrate Intake & Output 12/26/17 12/27/17 12/28/17 12/29/17 23:59 23:59 23:59 23:59 Intake Total 200 450 Output Total 200 Balance 0 450 Weight 143 lb 4.8 oz 139 lb 11.2 oz 139 lb 4.8 oz 139 lb 7 oz Last Vital Signs Temp Pulse Resp BP Pulse Ox 98.2 F 80 20 122/67 96 12/28/17 22:00 12/28/17 22:00 12/28/17 22:00 12/28/17 22:00 12/29/17 06:13 Active Medications Acetaminophen (Tylenol -) 650 mg PO Q6H PRN PRN Reason: PAIN OR FEVER Last Admin: 12/24/17 14:09 Dose: 650 mg Albuterol Sulfate (Ventolin 0.083% Nebulizer Soln -) 1 amp NEB Q4H PRN PRN Reason: SHORT OF BREATH/WHEEZING Last Admin: 12/29/17 07:45 Dose: 1 amp Ascorbic Acid (Vitamin C -) 500 mg PO BID [facility] Last Admin: 12/28/17 21:13 Dose: 500 mg Aspirin (Asa -) 81 mg PO DAILY [facility] Last Admin: 12/28/17 10:57 Dose: 81 mg Atorvastatin Calcium (Lipitor -) 40 mg PO HS [facility] Last Admin: 12/28/17 21:13 Dose: 40 mg Diltiazem HCl (Cardizem Cd -) 120 mg PO DAILY [facility] Last Admin: 12/28/17 10:57 Dose: 120 mg Docusate Sodium (Colace -) 100 mg PO DAILY [facility] Last Admin: 12/28/17 10:57 Dose: 100 mg Donepezil HCl (Aricept -) 5 mg PO HS [facility] Last Admin: 12/28/17 21:14 Dose: 5 mg Ferrous Sulfate (Feosol -) 325 mg PO TID [facility] Last Admin: 12/29/17 05:20 Dose: 325 mg Heparin Sodium (Porcine) (Heparin -) 5,000 unit SQ BID [facility] Last Admin: 12/28/17 21:15 Dose: 5,000 unit CEFTRIAXONE IN IS-OSM DEXTROSE (Ceftriaxone 2 Gm-D5w Bag) 2 gm in 50 mls @ 200 mls/hr IVPB DAILY [facility] Lactobacillus Acidophilus (Bacid -) 1 tab PO BID [facility] Last Admin: 12/28/17 21:14 Dose: 1 tab Paroxetine HCl (Paxil -) 40 mg PO HS [facility] Last Admin: 12/28/17 21:13 Dose: 40 mg Potassium Chloride (K-Dur -) 20 meq PO BID [facility] Last Admin: 12/28/17 21:13 Dose: 20 meq Spironolactone (Aldactone -) 25 mg PO BID [facility] Last Admin: 12/28/17 21:13 Dose: 25 mg Constitutional: Yes: NAD, awake and alert Cardiovascular: Yes: Regular Rate and Rhythm Respiratory: Yes: Scattered rhonchi, no expiratory wheeze Gastrointestinal: Yes: Normal Bowel Sounds, Soft Musculoskeletal: Yes: WNL Extremities: Yes: WNL Edema: No Peripheral Pulses WNL: Yes Neurological: Yes: Alert, Oriented Psychiatric: Yes: Alert, Oriented Labs: Laboratory Results - last 24 hr 12/28/17 17:25 POC Glucometer 118 Problem List - Problems (1) COPD exacerbation Code(s): J44.1 - CHRONIC OBSTRUCTIVE PULMONARY DISEASE W (ACUTE) EXACERBATION (2) Acute on chronic respiratory failure with hypoxia and hypercapnia Code(s): J96.21 - ACUTE AND CHRONIC RESPIRATORY FAILURE WITH HYPOXIA; J96.22 - ACUTE AND CHRONIC RESPIRATORY FAILURE WITH HYPERCAPNIA (3) CHF (congestive heart failure) Code(s): I50.9 - HEART FAILURE, UNSPECIFIED (4) Dementia Code(s): F03.90 - UNSPECIFIED DEMENTIA WITHOUT BEHAVIORAL DISTURBANCE (5) Diabetes Code(s): E11.9 - TYPE 2 DIABETES MELLITUS WITHOUT COMPLICATIONS Qualifiers: Diabetes mellitus type: type 2 Diabetes mellitus complication status: without complication Diabetes mellitus terminal clerk insulin use: without terminal clerk use Qualified Code(s): E11.9 - Type 2 diabetes mellitus without complications (6) KINSEY (acute kidney injury) Code(s): N17.9 - ACUTE KIDNEY FAILURE, UNSPECIFIED IMP ACUTE ON CHRONIC HYPOXIC RESPIRATORY FAILURE BOBBY PNA COPD EXACERBATION ASHD CHF DM HTN KINSEY PLAN ROCEPHIN / DAILY SYSTEMIC STEROIDS BEING HELD DUE TO POSSIBLE CONTRIBUTION TO DELERIUM/ AGITATION YESTERDAY: MONITOR INHALED BRONCHODILATORS O2 PATIENT APPEARS CLINICALLY STABLE AND REMAINS FEBRILE : NO CONTRAINDICATION D/C TO SNF ON [facility] FISCHER
[2017-12-29] MEDS: POTASSIUM CHLORIDE TABS 20 MEQ TABLET.ER (FP) PO SCH ×2 (11:05→22:03)
[2017-12-29] MEDS: LACTOBACILLUS ACIDOPHILUS 1 EACH TAB (FP) PO SCH ×2 (11:05→22:03)
[2017-12-29] MEDS: SPIRONOLACTONE 25 MG TABLET (FP) PO SCH ×2 (11:06→22:03)
[2017-12-29] MEDS: DOCUSATE SODIUM 100 MG CAPSULE (FP) PO SCH (11:06)
[2017-12-29] MEDS: ASCORBIC ACID 500 MG TABLET (FP) PO SCH ×2 (11:06→22:03)
[2017-12-29] MEDS: CEFTRIAXONE IN IS-OSM DEXTROSE 2 GM/50 ML BAG IVPB SCH (11:06)
[2017-12-29] MEDS: HEPARIN NA (PORCINE) 5,000 UNITS/ML 1ML VIAL SQ SCH (11:06)
[2017-12-29] MEDS: ASPIRIN 81 MG CHEWABLE TABLETS PO SCH (11:06)
[2017-12-29] MEDS: PARoxetine HCL 20 MG TABLET (FP) PO SCH (22:03)
[2017-12-29] MEDS: DONEPEZIL HCL 5 MG TABLET (FP) PO SCH (22:03)
[2017-12-29] MEDS: ATORVASTATIN CA 40 MG TABLET (FP) PO SCH (22:03)
[2017-12-30] MEDS: FERROUS SO4 325 MG TABLET (FP) PO SCH ×2 (06:23→13:50)
[2017-12-30] MEDS: ALBUTEROL SO4 0.083% IH SOL 2.5 MG/3 ML VIAL.NEB. NEB PRN ×2 (07:30→11:18)
[2017-12-30] MEDS ORDERED: PT OWN MED DRAWER 7, Y5N ONE (10:16)
[2017-12-30] MEDS: DOCUSATE SODIUM 100 MG CAPSULE (FP) PO SCH (10:32)
[2017-12-30] MEDS: SPIRONOLACTONE 25 MG TABLET (FP) PO SCH (10:32)
[2017-12-30] MEDS: LACTOBACILLUS ACIDOPHILUS 1 EACH TAB (FP) PO SCH (10:32)
[2017-12-30] MEDS: POTASSIUM CHLORIDE TABS 20 MEQ TABLET.ER (FP) PO SCH (10:32)
[2017-12-30] MEDS: ASPIRIN 81 MG CHEWABLE TABLETS PO SCH (10:32)
[2017-12-30] MEDS: ASCORBIC ACID 500 MG TABLET (FP) PO SCH (10:32)
[2017-12-30] MEDS: CEFTRIAXONE IN IS-OSM DEXTROSE 2 GM/50 ML BAG IVPB SCH (10:32)
[2017-12-30] MEDS ORDERED: AZITHROMYCIN 250 MG TABLET PO ONE (10:35)
[2017-12-30] MEDS ORDERED: AZITHROMYCIN 500 MG TABLET PO ONE (10:35)
--- NOTE | 2017-12-30 10:41 | PN ---
Progress Note, Physician Chief Complaint: COPD exacerbation History of Present Illness: NAD, sitting in chair, breathing improved seen by Pulmonary, - Current Medication List Current Medications: Active Medications Acetaminophen (Tylenol -) 650 mg PO Q6H PRN PRN Reason: PAIN OR FEVER Last Admin: 12/24/17 14:09 Dose: 650 mg Albuterol Sulfate (Ventolin 0.083% Nebulizer Soln -) 1 amp NEB Q4H PRN PRN Reason: SHORT OF BREATH/WHEEZING Last Admin: 12/30/17 07:30 Dose: 1 amp Ascorbic Acid (Vitamin C -) 500 mg PO BID [facility] Last Admin: 12/30/17 10:32 Dose: 500 mg Aspirin (Asa -) 81 mg PO DAILY [facility] Last Admin: 12/30/17 10:32 Dose: 81 mg Atorvastatin Calcium (Lipitor -) 40 mg PO HS [facility] Last Admin: 12/29/17 22:03 Dose: 40 mg Azithromycin (Zithromax -) 250 mg PO DAILY [facility] Diltiazem HCl (Cardizem Cd -) 120 mg PO DAILY [facility] Last Admin: 12/30/17 10:32 Dose: 120 mg Docusate Sodium (Colace -) 100 mg PO DAILY [facility] Last Admin: 12/30/17 10:32 Dose: 100 mg Donepezil HCl (Aricept -) 5 mg PO HS [facility] Last Admin: 12/29/17 22:03 Dose: 5 mg Ferrous Sulfate (Feosol -) 325 mg PO TID [facility] Last Admin: 12/30/17 06:23 Dose: 325 mg Lactobacillus Acidophilus (Bacid -) 1 tab PO BID [facility] Last Admin: 12/30/17 10:32 Dose: 1 tab Paroxetine HCl (Paxil -) 40 mg PO HS [facility] Last Admin: 12/29/17 22:03 Dose: 40 mg Potassium Chloride (K-Dur -) 20 meq PO BID [facility] Last Admin: 12/30/17 10:32 Dose: 20 meq Spironolactone (Aldactone -) 25 mg PO BID [facility] Last Admin: 12/30/17 10:32 Dose: 25 mg - Objective Vital Signs: Vital Signs Temperature 98.7 F 12/30/17 06:00 Pulse Rate 85 12/30/17 06:00 Respiratory Rate 20 12/30/17 06:00 Blood Pressure 136/64 12/30/17 06:00 O2 Sat by Pulse Oximetry (%) 97 12/29/17 21:00 Constitutional: Yes: Well Nourished, No Distress, Calm Cardiovascular: Yes: Regular Rate and Rhythm Respiratory: Yes: Regular Gastrointestinal: Yes: Normal Bowel Sounds, Soft Musculoskeletal: Yes: WNL Extremities: Yes: WNL Edema: No Peripheral Pulses WNL: Yes Neurological: Yes: Alert, Oriented Psychiatric: Yes: Alert, Oriented Labs: CBC, BMP 12/22/17 12:27 12/28/17 09:17 INR, PTT INR 1.05 (0.82-1.09) 12/22/17 12:27 Problem List - Problems (1) COPD exacerbation Assessment/Plan: Pulmonary consult, -Steroids discontinued, were changing mental status from baseline D/C back to [facility] Code(s): J44.1 - CHRONIC OBSTRUCTIVE PULMONARY DISEASE W (ACUTE) EXACERBATION (2) CHF (congestive heart failure) Assessment/Plan: -on spironolactone and cardizem Code(s): I50.9 - HEART FAILURE, UNSPECIFIED (3) Diabetes Assessment/Plan: -last A1c at 5.5 -endocrinology consult -Diabetic diet -D/C BGM, Levemir and Novolog for now to avoid risk for hypoglycemia, she is off Steroids Code(s): E11.9 - TYPE 2 DIABETES MELLITUS WITHOUT COMPLICATIONS Qualifiers: Diabetes mellitus type: type 2 Diabetes mellitus complication status: without complication Diabetes mellitus termite exterminator helper insulin use: without termite exterminator helper use Qualified Code(s): E11.9 - Type 2 diabetes mellitus without complications (4) Pneumonia Assessment/Plan: -on CXR -CT chest reviewed, shows BOBBY 2 nodules, will need follow up CT chest outpatient -F/u with Pulmonary -D/C on azithromycin for 4 days, will get loading dose of 500 mg before discharge -pt afebrile, no distress, SOB Code(s): J18.9 - PNEUMONIA, UNSPECIFIED ORGANISM Qualifiers: Pneumonia type: due to unspecified organism Laterality: unspecified laterality Lung location: unspecified part of lung Qualified Code(s): J18.9 - Pneumonia, unspecified organism Assessment/Plan see problem list
[2017-12-30 13:04] VITALS: BP 153/106; PULSE 94; TEMP 98.8
[2017-12-31] MEDS ORDERED: AZITHROMYCIN 250 MG TABLET PO SCH (10:00)
== END 2017-12-30 14:55 | DRG 189 ==
LOC: JER 11:47 → JERBED 15:15 → J8W 12-23 19:00 → OBSVTOIN 12-25 15:40
PROVIDERS: ADMIT Family Medicine; ATTEND Family Medicine
PROC: 5A09557 Assistance with Respiratory Ventilation, Greater than 96 Consecutive Hours, Continuous Positive Airway Pressure (ICD-10-PCS; principal; 2017-12-22)
DX: J96.21 Acute and chronic respiratory failure with hypoxia (principal); J18.9 Pneumonia, unspecified organism; G92 Toxic encephalopathy; J44.1 Chronic obstructive pulmonary disease with (acute) exacerbation; N17.9 Acute kidney failure, unspecified; I25.10 Atherosclerotic heart disease of native coronary artery without angina pectoris; J96.22 Acute and chronic respiratory failure with hypercapnia; G30.9 Alzheimer's disease, unspecified; F02.80 Dementia in other diseases classified elsewhere, unspecified severity, without behavioral disturbance, psychotic disturbance, mood disturbance, and anxiety; E11.9 Type 2 diabetes mellitus without complications; E78.5 Hyperlipidemia, unspecified; I34.1 Nonrheumatic mitral (valve) prolapse; I11.0 Hypertensive heart disease with heart failure; I50.9 Heart failure, unspecified; D50.9 Iron deficiency anemia, unspecified; K57.90 Diverticulosis of intestine, part unspecified, without perforation or abscess without bleeding; K44.9 Diaphragmatic hernia without obstruction or gangrene; K63.5 Polyp of colon; K21.9 Gastro-esophageal reflux disease without esophagitis; M54.5 Low back pain; T38.0X5A Adverse effect of glucocorticoids and synthetic analogues, initial encounter; R41.0 Disorientation, unspecified; F32.9 Major depressive disorder, single episode, unspecified; Z87.891 Personal history of nicotine dependence; Z87.442 Personal history of urinary calculi; Z96.642 Presence of left artificial hip joint; Z99.81 Dependence on supplemental oxygen; Z86.73 Personal history of transient ischemic attack (TIA), and cerebral infarction without residual deficits; Y92.89 Other specified places as the place of occurrence of the external cause
CPT/HCPCS: 36415; 71045-TC-FY; 71250-TC; 80048; 80053; 82550; 82728; 82746; 82803; 82962; 83036; 83540; 83550; 83880; 84484; 85025; 85610; 85730; 86850; 86900; 86901; 87804; 93005; 93010; 94640; 94660; 97116-GP; 97161-GP; 99285-25; G0378; J1644

== ENCOUNTER 2018-07-23 17:26 | Observation (INO) | payer OTHER, BC ==
[2018-07-23 17:52] VITALS: BMI 31.2
--- NOTE | 2018-07-23 18:12 | PDOC ---
History of Present Illness - General Chief Complaint: Chest Pain Stated Complaint: CHEST PAIN Time Seen by Provider: 07/23/18 18:11 History Source: Patient Exam Limitations: No Limitations - History of Present Illness Initial Comments: 07/23/18 18:12 77 year old woman pmhx mitral valve prolapse, DM, hypertension. hyperlipidemia, diabetes mellitus, mitral valve prolapse, coronary artery disease, anemia, COPD on 2L O2, TIA, Alzheimer's dementia who BIBA for intermittent throbbing chest pain w/ associated L wrist pain and mild shortness of breath. She states that earlier today at the senior care the pain developed and ambulance was called. She got 3 SL nitros and duoneb en route to the ED that relieved her symptoms. At bedside all symptoms are relieved. No nausea, diaphoresis, vomiting. No radiating of pain, no fever, chills or headache. The patient has no other complaints at bedside. PMHX: as in HPI PSHX: see below Meds: see below Allergies: none Tob: past history, no current use Etoh: socially Rec drugs: none Past History - Past Medical History Allergies/Adverse Reactions: Allergies Allergy/AdvReac Type Severity Reaction Status Date / Time No Known Allergies Allergy Verified 07/23/18 17:47 Home Medications: Ambulatory Orders Ascorbic Acid [Vitamin C] 500 mg PO DAILY 07/23/18 Aspirin 81 mg PO DAILY 07/23/18 Atorvastatin Ca [Lipitor] 40 mg PO HS 07/23/18 Calcium Carbonate/Vitamin D3 [Oyster Shell 500-Vit D3 200 Tb] 1 each PO DAILY Cholecalciferol (Vitamin D3) [Vitamin D3] 1,000 unit PO DAILY 07/23/18 Cranberry Fruit Concentrate [Cran-Max] 500 mg PO DAILY 07/23/18 Diltiazem Cd [Cardizem Cd -] 120 mg PO DAILY 07/23/18 Docusate Sodium [Colace] 100 mg PO HS 07/23/18 Donepezil HCl 5 mg PO DAILY 07/23/18 Ferrous Sulfate 325 mg PO DAILY 07/23/18 Ipratropium/Albuterol Sulfate [Iprat-Albut 0.5-3(2.5) mg/3 ml] 3 ml IH QID 07/23 Lactobacillus Acidophilus [Bacid -] 1 each PO BID 07/23/18 Magnesium Oxide 400 mg PO DAILY 07/23/18 Menthol/Camphor [Sarna Anti-Itch Lotion] 5 ml TP BID 07/23/18 Mirabegron [Myrbetriq] 50 mg PO DAILY 07/23/18 Nystatin Powder [Nystop Topical Powder -] 15 gm TP BID 07/23/18 Paroxetine HCl 40 mg PO HS 07/23/18 Potassium Chloride 20 meq PO BID 07/23/18 Ranitidine HCl [Zantac] 150 mg PO HS 07/23/18 Sitagliptin Phosphate [Januvia] 50 mg PO DAILY 07/23/18 Spironolactone [Aldactone] 25 mg PO BID 07/23/18 Anemia: Yes (IRON DEFICIENCY) Cardiac Disorders: Yes (HX MVP; ASHD; CAD) CVA: Yes (TIA) COPD: Yes (FREQUENT BRONCHITIS) CHF: Yes Dementia: Yes Diabetes: Yes (NIDDM) GI Disorders: Yes (HX GI BLEED; DIVERTICULOSIS;ESOPHAGITIS;AVM; HIATAL HERNIA; POLYPS,REFLUX E) Disorders: Yes (KIDNEY STONES) HTN: Yes Hypercholesterolemia: Yes Thyroid Disease: Yes - Surgical History Cholecystectomy: Yes Orthopedic Surgery: Yes (LEFT hip replacement 2009; KNEE SURGERY) - Immunization History Immunization Up to Date: Yes - Suicide/Smoking/Psychosocial Hx Smoking Status: Yes Smoking History: Former smoker Have you smoked in the past 12 months: No Number of Cigarettes Smoked Daily: 10 If you are a former smoker, when did you quit?: 2017 Information on smoking cessation initiated: No 'Breaking Loose' booklet given: 07/12/16 Hx Alcohol Use: No Drug/Substance Use Hx: No Substance Use Type: None Hx Substance Use Treatment: No Review of Systems - Review of Systems Able to Perform ROS?: Yes Is the patient limited Portuguese proficient: No Constitutional: No: Chills, Diaphoresis, Fever HEENTM: No: Tinnitus Respiratory: No: Cough, Orthopnea, Shortness of Breath Cardiac (ROS): Yes: See HPI, Chest Pain ABD/GI: No: Constipated, Diarrhea, Nausea, Vomiting : No: Burning, Dysuria, Hematuria, Incontinence, Pain Musculoskeletal: No: Back Pain Neurological: No: Headache, Numbness, Tingling *Physical Exam - Vital Signs Last Vital Signs Temp Pulse Resp BP Pulse Ox 98.1 F 75 18 122/56 100 07/23/18 17:47 07/23/18 17:47 07/23/18 17:47 07/23/18 17:47 07/23/18 17:47 - Physical Exam Comments: 07/23/18 21:52 GENERAL: Awake, alert, and fully oriented, in no acute distress HEAD: No signs of trauma, normocephalic, atraumatic EYES: EOMI, sclera anicteric, conjunctiva clear ENT: oropharynx clear without exudates. Moist mucosa NECK: Normal ROM, supple LUNGS: No distress, speaks full sentences, + mild inspiratory and expiratory wheeze HEART: Regular rate and rhythm, normal S1 and S2, no murmurs, rubs or gallops, peripheral pulses normal and equal bilaterally. ABDOMEN: Soft, nontender, normoactive bowel sounds. No guarding, no rebound. No masses EXTREMITIES : Normal inspection, Normal range of motion, no edema. No clubbing or cyanosis. NEUROLOGICAL: Normal speech, normal gait, no focal sensorimotor deficits SKIN: Warm, Dry, normal turgor, no rashes or lesions noted ED Treatment Course - LABORATORY CBC & Chemistry Diagram: 07/24/18 07:48 07/24/18 07:48 Medical Decision Making - Medical Decision Making 77 year old woman pmhx mitral valve prolapse, DM, hypertension. hyperlipidemia, diabetes mellitus, mitral valve prolapse, coronary artery disease, anemia, COPD on 2L O2, TIA, Alzheimer's dementia who BIBA for intermittent throbbing chest pain w/ associated L wrist pain and mild shortness of breath. She states that earlier today at the senior care the pain developed and ambulance was called. She got 3 SL nitros and duoneb en route to the ED that relieved her symptoms. DDX including but not limited to: ACS vs COPD exacerbation vs CHF exacerbation W/U: - cbc, cmp, BNP, cardiac profile - CXR Scores: Heart = 5 ED Course: Patient stable. no acute distress. Children Jossy - [phone] [facility] [phone] CXR: no acute changes from prior Trop: negatibe BNP: slightly elevated. Pt admitted for observation. Family updated. *DC/Admit/Observation/Transfer Diagnosis at time of Disposition: Chest pain - Discharge Dispostion Condition at time of disposition: Stable Decision to Admit order: Yes - Referrals - Patient Instructions - Post Discharge Activity
--- NOTE | 2018-07-23 20:15 | PDOC ---
Attending Attestation - HPI HPI: 07/23/18 20:24 77F BIBEMS from [facility] with a h/o of HTN, HLD, DM, CAD, COPD, and mitral valve prolapse who presents to the ED for evaluation of chest pain, left wrist pain, and mild shortness of breath. EMS administered 3 sublingual nitroglycerin and duoneb treatment which relieved her symptoms. Denies diaphoresis, nausea, vomiting, fevers, and chills. <Toby Hernandez - Last Filed: 07/23/18 20:24> - Resident Resident Name: Fabiana Rodriguez - ED Attending Attestation I have performed the following: I have examined & evaluated the patient, The case was reviewed & discussed with the resident, I agree w/resident's findings & plan, Exceptions are as noted - Physicial Exam PE: 07/24/18 05:46 GENERAL: Awake, alert, and fully oriented, in no acute distress. NECK: Normal range of motion, supple without lymphadenopathy LUNGS: Breath sounds equal, clear to auscultation bilaterally HEART: Regular rate and rhythm, normal S1 and S2 without murmur, rub or gallop. ABDOMEN: Soft, nontender, not distended, normoactive bowel sounds MUSCULOSKELETAL: Normal range of motion at all joints. No bony deformities or tenderness. No CVA tenderness. no tenderness on palpation left wrist, forearm SKIN: Warm, dry, normal turgor, no rashes or lesions noted, normal capillary refill. - Medical Decision Making 07/24/18 05:47 Laboratory Tests 07/23/18 07/23/18 20:15 20:15 WBC 8.3 Hgb 12.4 Hct 37.1 Plt Count 253 BUN 30 H Creatinine 1.4 H Creatine Kinase 61 Troponin I < 0.02 Pt presents with atypical chest pain but has multiple risk factors Will place on observation <Carline Zuñiga - Last Filed: 07/24/18 05:49> Attestations - Attestations Documentation prepared by Toby Hernandez, acting as medical billing instructor for Carline Zuñiga MD. <Toby Hernandez - Last Filed: 07/23/18 20:24>
[2018-07-23 20:26] LABS: BASO % 0.6 % (0-2.0); EOS % 4.1 % (0-4.5); HEMATOCRIT 37.1 % (32.4-45.2); HEMOGLOBIN 12.4 GM/dL (10.7-15.3); LYMPH % 7.8 % (8-40); MCH 30.5 pg (25.7-33.7); MCHC 33.5 g/dl (32.0-36.0); MEAN CELL VOLUME 91.2 fl (80-96); MEAN PLT VOLUME 8.3 fl (7.5-11.1); MONO % 9.9 % (3.8-10.2); NEUT % 77.6 % (42.8-82.8); PLATELET COUNT 253 K/MM3 (134-434); RBC 4.07 M/mm3 (3.60-5.2); RDW 14.7 % (11.6-15.6); WHITE BLOOD COUNT 8.3 K/mm3 (4.0-10.0)
[2018-07-23 20:54] LABS: ALBUMIN 3.6 g/dl (3.4-5.0); ANION GAP 10 MMOL/L (8-16); BILIRUBIN,TOTAL 0.3 mg/dL (0.2-1.0); BLOOD UREA NITROGEN 30 mg/dL (7-18); CALCIUM 8.7 mg/dL (8.5-10.1); CHLORIDE 98 mmol/L (98-107); CO2 29 mmol/L (21-32); CREATININE 1.4 mg/dL (0.55-1.02); GLUCOSE,RANDOM 124 mg/dL (74-106); SGOT/AST 13 U/L (15-37); SGPT/ALT 17 U/L (13-61); SODIUM 137 mmol/L (136-145); TOT PROT 7.4 g/dl (6.4-8.2)
[2018-07-23 20:56] LABS: ALK PHOS 157 U/L (45-117)
--- NOTE | 2018-07-23 23:16 | HP ---
CHIEF COMPLAINT: chest pain PCP: Tay HISTORY OF PRESENT ILLNESS: This is a 77 year old female with significant past medical history of HTN, HLD, COPD who presented to the ED from [facility] with chest pain. She states that she was sitting at a table doing a puzzle when the pain occurred. She received SL NTG x 3 in ambulance. She reports the pain is resolved now. She denies SOB or palpitations. Up until a few weeks ago she had been utilizing continuous oxygen via [place]. Pt also reports left wrist pain at time of chest pain, but has also resolved. ER course was notable for: (1) troponin neg x 1 (2) ECG without changes (3) CXR with no acute findings Recent Travel: pt denies PAST MEDICAL HISTORY: HTN, HLD, MV insufficiency, anemia, COPD, DM, diverticulosis, GERD, GI bleed, dementia, depression PAST SURGICAL HISTORY: colecystectomy Social History: Smoking: pt denies current use, + prior Alcohol:pt denies Drugs: pt denies Allergies No Known Allergies Allergy (Verified 07/23/18 17:47) HOME MEDICATIONS: 3 Medication Instructions Recorded Ascorbic Acid [Vitamin C] 500 mg PO DAILY 07/23/18 Aspirin 81 mg PO DAILY 07/23/18 Atorvastatin Ca [Lipitor] 40 mg PO HS 07/23/18 Calcium Carbonate/Vitamin D3 1 each PO DAILY 07/23/18 [Oyster Shell 500-Vit D3 200 Tb] Cholecalciferol (Vitamin D3) 1,000 unit PO DAILY 07/23/18 [Vitamin D3] Cranberry Fruit Concentrate 500 mg PO DAILY 07/23/18 [Cran-Max] Diltiazem Cd [Cardizem Cd -] 120 mg PO DAILY 07/23/18 Docusate Sodium [Colace] 100 mg PO HS 07/23/18 Donepezil HCl 5 mg PO DAILY 07/23/18 Ferrous Sulfate 325 mg PO DAILY 07/23/18 Ipratropium/Albuterol Sulfate 3 ml IH QID 07/23/18 [Iprat-Albut 0.5-3(2.5) mg/3 ml] Lactobacillus Acidophilus [Bacid -] 1 each PO BID 07/23/18 Magnesium Oxide 400 mg PO DAILY 07/23/18 Menthol/Camphor [Sarna Anti-Itch 5 ml TP BID 07/23/18 Lotion] Mirabegron [Myrbetriq] 50 mg PO DAILY 07/23/18 Nystatin Powder [Nystop Topical 15 gm TP BID 07/23/18 Powder -] Paroxetine HCl 40 mg PO HS 07/23/18 Potassium Chloride 20 meq PO BID 07/23/18 Ranitidine HCl [Zantac] 150 mg PO HS 07/23/18 Sitagliptin Phosphate [Januvia] 50 mg PO DAILY 07/23/18 Spironolactone [Aldactone] 25 mg PO BID 07/23/18 REVIEW OF SYSTEMS CONSTITUTIONAL: Absent: fever, chills, diaphoresis, generalized weakness, malaise, loss of appetite, weight change HEENT: Absent: rhinorrhea, nasal congestion, throat pain, throat swelling, difficulty swallowing, mouth swelling, ear pain, eye pain, visual changes CARDIOVASCULAR: Present: chest pain Absent: syncope, palpitations, irregular heart rate, lightheadedness, peripheral edema RESPIRATORY: Absent: cough, shortness of breath, dyspnea with exertion, orthopnea, wheezing, stridor, hemoptysis GASTROINTESTINAL: Absent: abdominal pain, abdominal distension, nausea, vomiting, diarrhea, constipation, melena, hematochezia GENITOURINARY: Absent: dysuria, frequency, urgency, hesitancy, hematuria, flank pain, genital pain MUSCULOSKELETAL: Absent: myalgia, arthralgia, joint swelling, back pain, neck pain SKIN: Absent: rash, itching, pallor HEMATOLOGIC/IMMUNOLOGIC: Absent: easy bleeding, easy bruising, lymphadenopathy, frequent infections ENDOCRINE: Absent: unexplained weight gain, unexplained weight loss, heat intolerance, cold intolerance NEUROLOGIC: Absent: headache, focal weakness or paresthesias, dizziness, unsteady gait, seizure, mental status changes, bladder or bowel incontinence PSYCHIATRIC: Absent: anxiety, depression, suicidal or homicidal ideation, hallucinations. PHYSICAL EXAMINATION Vital Signs - 24 hr 3 07/23/18 07/23/18 17:47 21:05 Temperature 98.1 F 99.8 F H Pulse Rate 75 Pulse Rate [ 76 Left Radial] Respiratory 18 16 Rate Blood Pressure 122/56 Blood Pressure 157/53 [Left Arm] O2 Sat by Pulse 100 99 Oximetry (%) GENERAL: Awake, alert, and fully oriented, in no acute distress. HEAD: Normal with no signs of trauma. EYES: Pupils equal, round and reactive to light, extraocular movements intact, sclera anicteric, conjunctiva clear. No lid lag. EARS, NOSE, THROAT: Ears normal, nares patent, oropharynx clear without exudates. Moist mucous membranes. NECK: Normal range of motion, supple without lymphadenopathy, JVD, or masses. LUNGS: Breath sounds equal, clear to auscultation bilaterally. No wheezes, and no crackles. No accessory muscle use. HEART: Regular rate and rhythm, normal S1 and S2 without murmur, rub or gallop. ABDOMEN: Soft, nontender, not distended, normoactive bowel sounds, no guarding, no rebound, no masses. No hepatomegaly or splenomegaly. MUSCULOSKELETAL: Normal range of motion at all joints. No bony deformities or tenderness. No CVA tenderness. no tenderness on palpation left wrist, forearm UPPER EXTREMITIES: 2+ pulses, warm, well-perfused. No cyanosis. No clubbing. No peripheral edema. LOWER EXTREMITIES: 2+ pulses, warm, well-perfused. No calf tenderness. No peripheral edema. NEUROLOGICAL: Cranial nerves II-XII intact. Normal speech. gait not observed. PSYCHIATRIC: Cooperative. Good eye contact. Appropriate mood and affect. SKIN: Warm, dry, normal turgor, no rashes or lesions noted, normal capillary refill. Laboratory Results - last 24 hr 3 07/23/18 07/23/18 07/23/18 20:15 20:15 20:15 WBC 8.3 RBC 4.07 Hgb 12.4 Hct 37.1 MCV 91.2 MCH 30.5 MCHC 33.5 RDW 14.7 D Plt Count 253 MPV 8.3 Absolute Neuts (auto) 6.4 Neutrophils % 77.6 Lymphocytes % 7.8 L D Monocytes % 9.9 Eosinophils % 4.1 D Basophils % 0.6 Nucleated RBC % 0 Sodium 137 Potassium 4.0 Chloride 98 Carbon Dioxide 29 Anion Gap 10 BUN 30 H Creatinine 1.4 H Creat Clearance w eGFR 36.37 Random Glucose 124 H Calcium 8.7 Total Bilirubin 0.3 AST 13 L ALT 17 Alkaline Phosphatase 157 H Creatine Kinase 61 Troponin I < 0.02 B-Natriuretic Peptide 532.57 H Total Protein 7.4 Albumin 3.6 ECG Normal sinus rhythm vent rate 75, QTC [address] T wave changes ASSESSMENT/PLAN: 77yF with PMH HTN, HLD, MV insufficiency, anemia, COPD, DM, diverticulosis, GERD , GI bleed, dementia, depression presented to the ED with chest pain. Chest pain - trop neg x 1, trend x 2 more - cardiac monitoring - cardiology consult HTN/HLD - cont home meds: atorvastatin, diltiazem, spironolactone COPD - duoneb standing DM - cont home januvia - diabetic diet - BGM AC/HS with novolog sliding scale GERD - cont home ranitidine dementia/depression - cont home aricept/paroxetine DVT PPX - defer for now, anticipated LOS <48h FEN - tolerating po - BMP in am - diabetic / low sodium diet Dispo: Pt currently requires further observation. Visit type - Emergency Visit Emergency Visit: Yes ED Registration Date: 07/23/18 Care time: The patient presented to the Emergency Department on the above date and was hospitalized for further evaluation of their emergent condition. - New Patient This patient is new to me today: Yes Date on this admission: 07/23/18 - Critical Care Critical Care patient: No Hospitalist Screening - Colonoscopy Questionnaire Colonoscopy Questionnaire: Colonoscopy Questionnaire - Patient: 50 - 75 years old and never had a screening colonoscopy: No History of colon or rectal polyps, or CA: Unknown History of IBD, Crohn's disease or UC: No History of abdominal radiation therapy as a child: No - Relative: 1 with colon or rectal CA, or polyps at age 60 or younger: Unknown Colon or rectal CA diagnosed at age 45 or younger: Unknown Multiple relatives with colon or rectal CA: Unknown - Outcome: Screening Result: Negative Screen
[2018-07-24] MEDS: sitaGLIPtin PHOSPHATE 50 MG TABLET PO SCH (07:06)
[2018-07-24] MEDS: INSULIN SLIDING SCALE (NOVOLOG) 1 VIAL SQ SCH ×4 (07:06→21:09)
[2018-07-24 08:01] LABS: BASO % 0.6 % (0-2.0); EOS % 5.4 % (0-4.5); HEMATOCRIT 36.8 % (32.4-45.2); HEMOGLOBIN 12.1 GM/dL (10.7-15.3); LYMPH % 7.7 % (8-40); MCH 29.9 pg (25.7-33.7); MEAN CELL VOLUME 90.5 fl (80-96); MEAN PLT VOLUME 8.1 fl (7.5-11.1); MONO % 10.4 % (3.8-10.2); NEUT % 75.9 % (42.8-82.8); PLATELET COUNT 245 K/MM3 (134-434); RBC 4.06 M/mm3 (3.60-5.2); RDW 14.4 % (11.6-15.6); WHITE BLOOD COUNT 7.9 K/mm3 (4.0-10.0)
[2018-07-24] MEDS: ALBUTEROL SO4 2.5/IPRATROPIUM 0.5 INH SOL 3 ML VIAL.NEB. NEB SCH ×4 (08:09→20:53)
[2018-07-24 09:30] LABS: ANION GAP 8 MMOL/L (8-16); BLOOD UREA NITROGEN 27 mg/dL (7-18); CALCIUM 8.9 mg/dL (8.5-10.1); CHLORIDE 101 mmol/L (98-107); CO2 31 mmol/L (21-32); CREATININE 1.2 mg/dL (0.55-1.02); GLUCOSE,RANDOM 95 mg/dL (74-106); MAGNESIUM 2.5 mg/dL (1.8-2.4); PHOSPHOROUS 4.4 mg/dL (2.5-4.9); POTASSIUM 4.2 mmol/L (3.5-5.1); SODIUM 140 mmol/L (136-145)
[2018-07-24] MEDS: CHOLECALCIFEROL (VITAMIN D3) 1,000 UNIT TABLET (FP) PO SCH (10:00)
[2018-07-24] MEDS: NYSTATIN POWDER 100,000 UNITS/GM - 15 GM TOPICAL POWDER TP SCH ×2 (10:00→21:08)
[2018-07-24] MEDS: POTASSIUM CHLORIDE TABS 20 MEQ TABLET.ER (FP) PO SCH ×2 (10:00→21:08)
[2018-07-24] MEDS: FERROUS SO4 325 MG TABLET (FP) PO SCH (10:00)
[2018-07-24] MEDS ORDERED: MAGNESIUM OXIDE 400 MG TABLET (FP) PO SCH (10:00)
[2018-07-24] MEDS: LACTOBACILLUS ACIDOPHILUS 1 TABLET PO SCH ×2 (10:00→21:08)
[2018-07-24] MEDS ORDERED: CRANBERRY FRUIT PO SCH (10:00)
[2018-07-24] MEDS: CALCIUM 500MG/VIT-D 200 UNITS COMBO TABLET (FP) PO SCH (10:00)
[2018-07-24] MEDS ORDERED: PATIENT'S OWN MEDICATION (NON-FORMULARY) (Mirabegron [Myrbetriq] 50 MG) PO SCH (10:00)
[2018-07-24] MEDS: ASCORBIC ACID 500 MG TABLET (FP) PO SCH (10:00)
[2018-07-24] MEDS: ASPIRIN 81 MG CHEWABLE TABLETS PO SCH (10:00)
[2018-07-24] MEDS: DONEPEZIL HCL 5 MG TABLET (FP) PO SCH (10:00)
[2018-07-24] MEDS: SPIRONOLACTONE 25 MG TABLET (FP) PO SCH ×2 (10:00→21:09)
[2018-07-24] MEDS: MENTHOL/CAMPHOR 1 APPLIC BTL TP SCH ×2 (10:40→21:08)
[2018-07-24] MEDS ORDERED: HEMOQUE TEST 1 EACH EACH ONE (11:06)
--- NOTE | 2018-07-24 11:18 | PN ---
Progress Note, Physician Chief Complaint: patient seen and examined no distress no more CP since she came in hospital - Current Medication List Current Medications: Active Medications Albuterol/Ipratropium (Duoneb -) 1 amp NEB RQID [facility] Last Admin: 07/24/18 08:09 Dose: 1 amp Ascorbic Acid (Vitamin C -) 500 mg PO DAILY [facility] Last Admin: 07/24/18 10:00 Dose: 500 mg Aspirin (Asa -) 81 mg PO DAILY [facility] Last Admin: 07/24/18 10:00 Dose: 81 mg Atorvastatin Calcium (Lipitor -) 40 mg PO HS [facility] Calcium Carbonate/Cholecalciferol (Os-Keshawn 500+D -) 1 tab PO DAILY [facility] Last Admin: 07/24/18 10:00 Dose: 1 tab Camphor/Menthol (Sarna Anti-Itch -) 1 applic TP BID [facility] Last Admin: 07/24/18 10:40 Dose: 1 applic Cholecalciferol (Vitamin D3 -) 1,000 unit PO DAILY [facility] Last Admin: 07/24/18 10:00 Dose: 1,000 unit Diltiazem HCl (Cardizem Cd -) 120 mg PO DAILY [facility] Last Admin: 07/24/18 10:00 Dose: 120 mg Docusate Sodium (Colace -) 100 mg PO HS [facility] Donepezil HCl (Aricept -) 5 mg PO DAILY [facility] Last Admin: 07/24/18 10:00 Dose: 5 mg Ferrous Sulfate (Feosol -) 325 mg PO DAILY [facility] Last Admin: 07/24/18 10:00 Dose: 325 mg Insulin Aspart (Novolog Vial Sliding Scale -) 1 vial SQ ACHS [facility]; Protocol Last Admin: 07/24/18 07:06 Dose: Not Given Lactobacillus Acidophilus (Bacid -) 1 tab PO BID [facility] Last Admin: 07/24/18 10:00 Dose: 1 tab Magnesium Oxide (Mag-Ox -) 400 mg PO DAILY [facility] Last Admin: 07/24/18 10:00 Dose: 400 mg Non-Formulary Medication (Mirabegron [Myrbetriq]) 50 mg PO DAILY [facility] Nystatin (Nystop Powder -) 1 applic TP BID [facility] Last Admin: 07/24/18 10:00 Dose: 1 applic Paroxetine HCl (Paxil -) 40 mg PO HS [facility] Potassium Chloride (K-Dur -) 20 meq PO BID [facility] Last Admin: 07/24/18 10:00 Dose: 20 meq Ranitidine HCl (Zantac -) 150 mg PO HS [facility] Sitagliptin Phosphate (Januvia -) 50 mg PO DAILY@0700 [facility] Last Admin: 07/24/18 07:06 Dose: 50 mg Spironolactone (Aldactone -) 25 mg PO BID [facility] Last Admin: 07/24/18 10:00 Dose: 25 mg - Objective Vital Signs: Vital Signs Temperature 98.2 F 07/24/18 10:45 Pulse Rate 64 07/24/18 10:45 Respiratory Rate 18 07/24/18 10:45 Blood Pressure 131/73 07/24/18 10:45 O2 Sat by Pulse Oximetry (%) 99 07/24/18 10:45 Constitutional: Yes: Calm Cardiovascular: Yes: Regular Rate and Rhythm, S1, S2 Respiratory: Yes: CTA Bilaterally, Diminished Gastrointestinal: Yes: Normal Bowel Sounds, Soft Edema: No Neurological: Yes: Alert, Oriented Labs: CBC, BMP 07/24/18 07:48 07/24/18 07:48 Problem List - Problems (1) Chest pain Assessment/Plan: aspirin statin CE 2 sets negative cardizem cardiology eval Code(s): R07.9 - CHEST PAIN, UNSPECIFIED (2) CHF (congestive heart failure) Assessment/Plan: aldactone Code(s): I50.9 - HEART FAILURE, UNSPECIFIED (3) Dementia Assessment/Plan: aricept Code(s): F03.90 - UNSPECIFIED DEMENTIA WITHOUT BEHAVIORAL DISTURBANCE (4) Anemia Assessment/Plan: ferrous sulfate Code(s): D64.9 - ANEMIA, UNSPECIFIED Qualifiers: Anemia type: iron deficiency Iron deficiency anemia type: unspecified iron deficiency Qualified Code(s): D50.9 - Iron deficiency anemia, unspecified (5) Overactive bladder Assessment/Plan: myrbetriq Code(s): N32.81 - OVERACTIVE BLADDER (6) Diabetes Assessment/Plan: januvia and sliding scale Code(s): E11.9 - TYPE 2 DIABETES MELLITUS WITHOUT COMPLICATIONS Qualifiers: Diabetes mellitus type: type 2 Diabetes mellitus fdc insulin use: without 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
--- NOTE | 2018-07-24 15:39 | EKG ---
Test Reason : Blood Pressure : / mmHG Vent. Rate : 075 BPM Atrial Rate : 075 BPM P-R Int : 162 ms QRS Dur : 092 ms QT Int : 414 ms P-R-T Axes : 067 040 098 degrees QTc Int : 462 ms NORMAL SINUS RHYTHM LOW VOLTAGE QRS CANNOT RULE OUT ANTERIOR INFARCT (CITED ON OR BEFORE 05-DEC-2015) ABNORMAL ECG WHEN COMPARED WITH ECG OF 22-DEC-2017 11:58, PREMATURE VENTRICULAR COMPLEXES ARE NO LONGER PRESENT ST NO LONGER DEPRESSED IN LATERAL LEADS T WAVE INVERSION NO LONGER EVIDENT IN INFERIOR LEADS T WAVE INVERSION NO LONGER EVIDENT IN LATERAL LEADS Confirmed by FELY THAPA MD ([id number]) on 07/24/2018 3:39:33 PM Referred By: Confirmed By:FELY THAPA MD
[2018-07-24] MEDS ORDERED: PT OWN MED DRAWER 7, Y5N ONE ×2 (18:31→20:48)
[2018-07-24] MEDS ORDERED: PARoxetine HCL 10 MG TABLET (FP) ONE (20:46)
[2018-07-24] MEDS: ATORVASTATIN CA 40 MG TABLET (FP) PO SCH (21:08)
[2018-07-24] MEDS: DOCUSATE SODIUM 100 MG CAPSULE (FP) PO SCH (21:08)
[2018-07-24] MEDS: RANITIDINE HCL 150 MG TABLET (FP) PO SCH (21:08)
[2018-07-24] MEDS: PARoxetine HCL 20 MG TABLET (FP) PO SCH (21:09)
[2018-07-25] MEDS: sitaGLIPtin PHOSPHATE 50 MG TABLET PO SCH (06:08)
[2018-07-25] MEDS: INSULIN SLIDING SCALE (NOVOLOG) 1 VIAL SQ SCH ×4 (06:08→21:44)
[2018-07-25] MEDS: ALBUTEROL SO4 2.5/IPRATROPIUM 0.5 INH SOL 3 ML VIAL.NEB. NEB SCH ×4 (08:05→20:25)
[2018-07-25] MEDS: CHOLECALCIFEROL (VITAMIN D3) 1,000 UNIT TABLET (FP) PO SCH (10:16)
[2018-07-25] MEDS: CALCIUM 500MG/VIT-D 200 UNITS COMBO TABLET (FP) PO SCH (10:16)
[2018-07-25] MEDS: POTASSIUM CHLORIDE TABS 20 MEQ TABLET.ER (FP) PO SCH ×2 (10:17→21:35)
[2018-07-25] MEDS: SPIRONOLACTONE 25 MG TABLET (FP) PO SCH ×2 (10:17→21:36)
[2018-07-25] MEDS: DONEPEZIL HCL 5 MG TABLET (FP) PO SCH (10:17)
[2018-07-25] MEDS: FERROUS SO4 325 MG TABLET (FP) PO SCH (10:17)
[2018-07-25] MEDS: ASCORBIC ACID 500 MG TABLET (FP) PO SCH (10:17)
[2018-07-25] MEDS: LACTOBACILLUS ACIDOPHILUS 1 TABLET PO SCH ×2 (10:17→21:36)
[2018-07-25] MEDS: ASPIRIN 81 MG CHEWABLE TABLETS PO SCH (10:17)
[2018-07-25] MEDS: MENTHOL/CAMPHOR 1 APPLIC BTL TP SCH ×2 (10:21→21:49)
[2018-07-25] MEDS: NYSTATIN POWDER 100,000 UNITS/GM - 15 GM TOPICAL POWDER TP SCH ×2 (10:21→22:16)
--- NOTE | 2018-07-25 12:09 | PN ---
Progress Note, Physician - Current Medication List Current Medications: Active Medications Albuterol/Ipratropium (Duoneb -) 1 amp NEB RQID [facility] Last Admin: 07/25/18 11:30 Dose: 1 amp Ascorbic Acid (Vitamin C -) 500 mg PO DAILY [facility] Last Admin: 07/25/18 10:17 Dose: 500 mg Aspirin (Asa -) 81 mg PO DAILY [facility] Last Admin: 07/25/18 10:17 Dose: 81 mg Atorvastatin Calcium (Lipitor -) 40 mg PO HS [facility] Last Admin: 07/24/18 21:08 Dose: 40 mg Calcium Carbonate/Cholecalciferol (Os-Keshawn 500+D -) 1 tab PO DAILY [facility] Last Admin: 07/25/18 10:16 Dose: 1 tab Camphor/Menthol (Sarna Anti-Itch -) 1 applic TP BID [facility] Last Admin: 07/25/18 10:21 Dose: 1 applic Cholecalciferol (Vitamin D3 -) 1,000 unit PO DAILY [facility] Last Admin: 07/25/18 10:16 Dose: 1,000 unit Diltiazem HCl (Cardizem Cd -) 120 mg PO DAILY [facility] Last Admin: 07/25/18 10:17 Dose: 120 mg Docusate Sodium (Colace -) 100 mg PO HS [facility] Last Admin: 07/24/18 21:08 Dose: 100 mg Donepezil HCl (Aricept -) 5 mg PO DAILY [facility] Last Admin: 07/25/18 10:17 Dose: 5 mg Ferrous Sulfate (Feosol -) 325 mg PO DAILY [facility] Last Admin: 07/25/18 10:17 Dose: 325 mg Insulin Aspart (Novolog Vial Sliding Scale -) 1 vial SQ [facility]; Protocol Last Admin: 07/25/18 06:08 Dose: Not Given Lactobacillus Acidophilus (Bacid -) 1 tab PO BID [facility] Last Admin: 07/25/18 10:17 Dose: 1 tab Non-Formulary Medication (Mirabegron [Myrbetriq]) 50 mg PO DAILY [facility] Nystatin (Nystop Powder -) 1 applic TP BID [facility] Last Admin: 07/25/18 10:21 Dose: 1 applic Paroxetine HCl (Paxil -) 40 mg PO HS [facility] Last Admin: 07/24/18 21:09 Dose: 40 mg Potassium Chloride (K-Dur -) 20 meq PO BID [facility] Last Admin: 07/25/18 10:17 Dose: 20 meq Ranitidine HCl (Zantac -) 150 mg PO HS [facility] Last Admin: 07/24/18 21:08 Dose: 150 mg Sitagliptin Phosphate (Januvia -) 50 mg PO DAILY@0700 [facility] Last Admin: 07/25/18 06:08 Dose: Not Given Spironolactone (Aldactone -) 25 mg PO BID [facility] Last Admin: 07/25/18 10:17 Dose: 25 mg - Objective Vital Signs: Vital Signs Temperature 97.7 F 07/25/18 05:41 Pulse Rate 62 07/25/18 05:41 Respiratory Rate 18 07/25/18 05:41 Blood Pressure 147/70 07/25/18 05:41 O2 Sat by Pulse Oximetry (%) 99 07/24/18 23:00 Constitutional: Yes: Calm Neck: Yes: Trachea Midline Cardiovascular: Yes: Regular Rate and Rhythm, S1, S2 Respiratory: Yes: CTA Bilaterally Gastrointestinal: Yes: Normal Bowel Sounds, Soft Edema: No Neurological: Yes: Alert, Oriented Labs: CBC, BMP 07/24/18 07:48 07/24/18 07:48 Problem List - Problems (1) Chest pain Assessment/Plan: CE 3 sets negative echo ordered last was in [address] rivera office left message to have him come see patient currently chest pain free Code(s): R07.9 - CHEST PAIN, UNSPECIFIED (2) CHF (congestive heart failure) Assessment/Plan: aldactone cardizem Code(s): I50.9 - HEART FAILURE, UNSPECIFIED (3) Dementia Assessment/Plan: aricept Code(s): F03.90 - UNSPECIFIED DEMENTIA WITHOUT BEHAVIORAL DISTURBANCE (4) Anemia Assessment/Plan: ferrous sulfate Code(s): D64.9 - ANEMIA, UNSPECIFIED Qualifiers: Anemia type: iron deficiency Iron deficiency anemia type: unspecified iron deficiency Qualified Code(s): D50.9 - Iron deficiency anemia, unspecified (5) Overactive bladder Assessment/Plan: myrbetriq Code(s): N32.81 - OVERACTIVE BLADDER (6) Diabetes Assessment/Plan: januvia and sliding scale Code(s): E11.9 - TYPE 2 DIABETES MELLITUS WITHOUT COMPLICATIONS Qualifiers: Diabetes mellitus type: type 2 Diabetes mellitus fpc insulin use: without fpc use Diabetes mellitus complication status: without complication Qualified Code(s): E11.9 - Type 2 diabetes mellitus without complications Assessment/Plan foul smelling urine send out UA and Urine culture will start iv rocephin after urine sent ad=nd then change to po abx keflex awaiting cardiology to see patient to see if further work up- if not will dc back to snf later today
[2018-07-25] MEDS ORDERED: cefTRIAXone SODIUM 1 GM VIAL ONE (13:54)
[2018-07-25] MEDS ORDERED: DEXTROSE 5%-WATER - 50 ML IVPB ONE (13:54)
--- NOTE | 2018-07-25 14:35 | DS ---
Physical Examination Vital Signs: Vital Signs Temperature 98.0 F 07/25/18 14:14 Pulse Rate 69 07/25/18 14:14 Respiratory Rate 22 07/25/18 14:14 Blood Pressure 115/53 07/25/18 14:14 O2 Sat by Pulse Oximetry (%) 99 07/25/18 12:30 Constitutional: Yes: Calm Cardiovascular: Yes: Regular Rate and Rhythm, S1, S2 Respiratory: Yes: CTA Bilaterally Gastrointestinal: Yes: Normal Bowel Sounds, Soft Edema: No Neurological: Yes: Alert, Oriented Labs: CBC, BMP 07/24/18 07:48 07/24/18 07:48 Discharge Summary Reason For Visit: CHEST PAIN Current Active Problems Chest pain (Acute) Overactive bladder (Acute) Hospital Course: CHIEF COMPLAINT: chest pain PCP: Tay HISTORY OF PRESENT ILLNESS: This is a 77 year old female with significant past medical history of HTN, HLD, COPD who presented to the ED from [facility] with chest pain. She states that she was sitting at a table doing a puzzle when the pain occurred. She received SL NTG x 3 in ambulance. She reports the pain is resolved now. She denies SOB or palpitations. Up until a few weeks ago she had been utilizing continuous oxygen via [place]. Pt also reports left wrist pain at time of chest pain, but has also resolved. ER course was notable for: (1) troponin neg x 1 (2) ECG without changes (3) CXR with no acute findings Recent Travel: pt denies PAST MEDICAL HISTORY: HTN, HLD, MV insufficiency, anemia, COPD, DM, diverticulosis, GERD, GI bleed, dementia, depression PAST SURGICAL HISTORY: colecystectomy Social History: Smoking: pt denies current use, + prior Alcohol:pt denies Drugs: pt denies patient seen and examined cardiac 3 sets negative echo ordered urine sent Condition: Stable - Instructions Diet, Activity, Other Instructions: keflex 500mg po bid for 7 days stop magnesium - Home Medications Comprehensive Discharge Medication List: Ambulatory Orders Ascorbic Acid [Vitamin C] 500 mg PO DAILY 07/23/18 Aspirin 81 mg PO DAILY 07/23/18 Atorvastatin Ca [Lipitor] 40 mg PO HS 07/23/18 Calcium Carbonate/Vitamin D3 [Oyster Shell 500-Vit D3 200 Tb] 1 each PO DAILY Cholecalciferol (Vitamin D3) [Vitamin D3] 1,000 unit PO DAILY 07/23/18 Cranberry Fruit Concentrate [Cran-Max] 500 mg PO DAILY 07/23/18 Diltiazem Cd [Cardizem Cd -] 120 mg PO DAILY 07/23/18 Docusate Sodium [Colace] 100 mg PO HS 07/23/18 Donepezil HCl 5 mg PO DAILY 07/23/18 Ferrous Sulfate 325 mg PO DAILY 07/23/18 Ipratropium/Albuterol Sulfate [Iprat-Albut 0.5-3(2.5) mg/3 ml] 3 ml IH QID 07/23 Lactobacillus Acidophilus [Bacid -] 1 each PO BID 07/23/18 Magnesium Oxide 400 mg PO DAILY 07/23/18 Menthol/Camphor [Sarna Anti-Itch Lotion] 5 ml TP BID 07/23/18 Mirabegron [Myrbetriq] 50 mg PO DAILY 07/23/18 Nystatin Powder [Nystop Topical Powder -] 15 gm TP BID 07/23/18 Paroxetine HCl 40 mg PO HS 07/23/18 Potassium Chloride 20 meq PO BID 07/23/18 Ranitidine HCl [Zantac] 150 mg PO HS 07/23/18 Sitagliptin Phosphate [Januvia] 50 mg PO DAILY 07/23/18 Spironolactone [Aldactone] 25 mg PO BID 07/23/18
--- NOTE | 2018-07-25 15:07 | ECHO ---
Name: YOGI BLAIR Exam:Adult Echocardiogram Study Date: 07/25/2018 01:58 PM Age: 77 yrs Reason For Study: WMA Height: 60 in Weight: 162 lb BSA: 1.7 m2 MMode/2D Measurements & Calculations IVSd: 0.77 cm Ao root diam: 2.5 cm LVIDd: 4.5 cm LA dimension: 3.8 cm LVIDs: 2.8 cm LVPWd: 0.81 cm EDV(Teich): 91.8 ml TAPSE: 1.9 cm ESV(Teich): 29.1 ml RV S Jossue: 10.3 cm/sec Doppler Measurements & Calculations MV E max jossue: 80.5 cm/sec MR max jossue: 270.5 cm/sec MV A max jossue: 126.9 cm/sec MR max P.3 mmHg MV E/A: 0.63 TR max jossue: 234.6 cm/sec Med Peak E' Jossue: 5.2 cm/sec TR max P.0 mmHg Med E/e': 15.6 Lat Peak E' Jossue: 5.3 cm/sec Lat E/e': 15.3 Left Ventricle Left ventricular systolic function is normal. Ejection Fraction = 50-55%. Right Ventricle The right ventricle is normal in size and function. Atria The left atrium is mildly dilated. Mitral Valve There is severe mitral annular calcification. There is no mitral valve stenosis. There is mild mitral regurgitation. Tricuspid Valve The tricuspid valve is normal in structure and function. There is mild tricuspid regurgitation. Aortic Valve There is mild aortic sclerosis.;. No hemodynamically significant valvular aortic stenosis. No aortic regurgitation is present. Pulmonic Valve The pulmonic valve is not well seen, but is grossly normal. There is no pulmonic valvular stenosis. Great Vessels The aortic root is normal size. Pericardium/Pleura There is no pericardial effusion. Interpretation Summary Left ventricular systolic function is normal. Ejection Fraction = 50-55%. The right ventricle is normal in size and function. The left atrium is mildly dilated. There is severe mitral annular calcification. There is mild mitral regurgitation. There is mild tricuspid regurgitation. There is mild aortic sclerosis.; There is no pericardial effusion. MD Iván Ordoñez 07/25/2018 03:07 PM
[2018-07-25] MEDS: CEFTRIAXONE 1 GM in DEXTROSE 5%-WATER - 50 ML IVPB SCH (15:22)
[2018-07-25 16:18] LABS: URINE APPEARANCE CLEAR; URINE BILIRUBIN NEGATIVE (<2.0 mg/dL); URINE COLOR LTYELLOW; URINE GLUCOSE (UA) NEGATIVE (NEGATIVE); URINE KETONE NEGATIVE (NEGATIVE); URINE NITRITE NEGATIVE (NEGATIVE); URINE PROTEIN NEGATIVE (NEGATIVE); URINE UROBILINOGEN NEGATIVE mg/dL (0.2-1.0)
[2018-07-25 16:36] LABS: URINE LEUK ESTERASE 1+ (NEGATIVE)
[2018-07-25 17:26] LABS: EPI CELLS RARE /HPF (FEW); URINE MUCUS RARE
--- NOTE | 2018-07-25 20:39 | CONS ---
DATE OF CONSULTATION: 07/25/2018 CARDIOLOGY CONSULTATION REQUESTING PHYSICIAN: Simon Pandya M.D., and Petrona Zhong M.D CHIEF COMPLAINT: Chest pain. HISTORY OF PRESENT ILLNESS: The patient is a 77-year-old female who was admitted with sudden onset of left anterior pressure-like chest pain while she was at a group home facility. She also complained of pain involving her left wrist. The pain was described as heaviness. There are no associated symptoms of diaphoresis, shortness of breath, lightheadedness, dizziness or nausea. Paramedics were called and according to the records, she received 3 nitroglycerin with progressive relief of chest discomfort. She has a longstanding history of chronic noninsulin-dependent diabetes mellitus, hypertension, hypertensive cardiovascular disease, hypercholesterolemia and a history of dementia. There is no history of palpitations, lightheadedness, recent dizziness, presyncope or syncope. She was found to be anemic. PAST HISTORY: 1. As mentioned in the history of present illness. 2. History of diverticulosis. 3. History of VRE urinary infection. 4. Previous history of MRSA. 5. Status post renal lithiasis. SURGICAL HISTORY:1. Status post left hip replacement. 2. History of surgery on the knee for an apparent injury. 3. Status post tonsillectomy. 4. Status post left cataract extraction. 5. Status post cholecystectomy. SOCIAL HISTORY: . Has one son and a daughter. The son has hypertension. She smoked from the age of 14 until 2-1/2 years ago, and smoked approximately one pack of cigarettes per day. She may have a social drink. Has two cups of coffee daily. FAMILY HISTORY: Father at age 57 of a heart attack. He was a smoker. Mother at age 65 related to complications of diabetes mellitus. She was a smoker. She had two brothers. One of them of heart disease at the age of (?) 60. The other brother has diabetes mellitus. She has one sister who is a diabetic. ALLERGIES: None recorded. CURRENT HOSPITAL MEDICATIONS: 1. Diltiazem 120 mg p.o. daily. 2. Myrbetriq 50 mg p.o. daily. 3. Paxil 40 mg p.o. daily at bedtime. 4. Bacid 1 tablet p.o. b.i.d. 5. DuoNeb 1 ampule via nebulizer q.i.d. 6. Januvia 50 mg p.o. daily a.c. 7. Colace 100 mg p.o. daily at bedtime. 8. Zantac 150 mg p.o. at bedtime. 9. Lipitor 40 mg p.o. daily. 10. NovoLog insulin via sliding scale. 11. Iron supplement 325 mg p.o. daily. 12. Aldactone 25 mg p.o. b.i.d. 13. Aspirin 81 mg p.o. daily. 14. Aricept 5 mg p.o. daily. 15. Nystatin powder one application b.i.d. 16. Os-Keshawn 500 Plus Vitamin D, one1 p.o. daily. 17. Potassium chloride 20 mEq p.o. b.i.d. 18. Camphor/menthol one application b.i.d. 19. Vitamin C 500 mg p.o. daily. 20. Vitamin D 1000 units p.o. daily. 21. Ceftriaxone 100 mL per hour IV piggyback daily. REVIEW OF SYSTEMS: Constitutional: No history of chills, fever or night sweats. No history of unintentional weight loss. HEENT: History of intermittent frontal headaches. Denies diplopia or blurred vision. No history of epistaxis, hoarseness, tinnitus. History of loss of hearing. Cardiovascular: See history of present illness. Respiratory: History of intermittent nonproductive cough. See history of present illness. No history of hemoptysis or tuberculosis. Gastrointestinal: No history of nausea, vomiting, melena or hematemesis. No history of abdominal pain or discomfort reported. No history of change in bowel habits. Neurologic: See history of present illness. No history of recent seizures or syncope. Musculoskeletal: History of generalized osteoarthritis. History of frequent falls, according to her daughter. Genitourinary: History of recurring urinary tract infection, (?) history of VRE and MRSA. No history of hematuria, dysuria, frequency or hematuria. Currently being treated for a urinary tract infection. Musculoskeletal: History of generalized arthralgias and low back syndrome. Endocrine: No history of polyuria or polydipsia. No history of intolerance to cold or warm weather. See history of present illness. Hematologic: See history of present illness. Lymphatics: No history of lymphadenopathy. PHYSICAL EXAMINATION: General: A 77-year-old female in no acute distress. There was slight pallor. No cyanosis, clubbing or jaundice. Vital signs: Weight 162.12 pounds. Blood pressure 115/53 mmHg and regular. Pulse 69 beats per minute and regular. Temperature 98 degrees Fahrenheit. Oxygen saturation 99% on 2 L of oxygen. Respirations were 22 per minute. Neck: Supple. No jugular venous distention, hepatojugular reflux is negative, carotids were 2+, upstrokes were normal, no bruits were appreciated and there was no thyromegaly. Heart: PMI was in the 5th intercostal space, no heaves or thrills, heart sounds were distant. No murmur or gallops were appreciated. Lungs: Decreased breath sounds at both bases. There were coarse breath sounds involving the left lung posteriorly. There was scattered expiratory wheezing involving the right lung. Abdomen: Soft, protuberant, nontender, no hepatosplenomegaly or palpable masses were felt. Extremities: No calf tenderness or dependent edema, femoral pulses were 2+, dorsalis pedis and posterior tibial pulses were not palpable. LABORATORY DATA: CBC on admission: WBC count was 10,300. Repeat on July 24 was 7900. On admission, hemoglobin was 9.3 g/dL, repeat on July 24 was 12.1 g/dL. Platelet count on July 24 was 245,000. Differential on July 24, 2018: Neutrophils were 75.9%, absolute neutrophils were 6, lymphocytes were 7.7%, monocytes were 10.4%, eosinophils were 5.4%, basophils were 0.6%. Chemistries: Sodium 140, potassium 4.2, chloride 101, CO2 of 31, BUN 27, creatinine 1.2 mg/dL. Random glucose was 95 mg/dL. Magnesium was 2.5 mg/dL. CK was 64, troponin was less than 0.02. ECG on July 23, 2018: Sinus rhythm. Poor R wave progression in V1 to V3, possibility of anteroseptal wall myocardial infarction cannot be excluded. Borderline criteria for nonspecific intraventricular conduction delay. Probable intraatrial conduction abnormality. Nonspecific ST and T wave abnormalities. X-ray chest, impression: No acute pathology at this time. Echocardiogram dated July 25, 2018. Interpretation summary: 1. Left ventricular systolic function is normal. 2. Ejection fraction 50 to 55 percent. 3. Right ventricle is normal in size and function. 4. Left atrium is mildly dilated. 5. There is severe mitral annular calcification. 6. There is mild mitral regurgitation. 7. There is mild tricuspid regurgitation. 8. There is mild aortic sclerosis. 9. There is no pericardial effusion. IMPRESSION: 1. Chest pain syndrome compatible with coronary artery disease, angina pectoris, probably precipitated by anemia. 2. Hypertension, hypertensive cardiovascular disease, currently normotensive. 3. Noninsulin-dependent diabetes mellitus. 4. History of chronic obstructive pulmonary disease. 5. History of pruritus, etiology to be determined. 6. Osteoarthritis. 7. History of mitral valve prolapse. 8. History of dementia. 9. History of falls. 10. Mild mitral regurgitation. 11. Mild tricuspid regurgitation. RECOMMENDATION: 1. Dose of diltiazem could be increased to 120 mg p.o. b.i.d. or she could receive 240 mg long acting p.o. daily. 2. Patient should have sublingual nitroglycerin 0.4 mg with her and indications and potential side effects should be discussed. 3. Consider Lexiscan rest and stress perfusion scans. 4. Evaluation of anemia. 5. Further suggestions would depend upon the result of perfusion myocardial scan. 6. Prognosis guarded. Thank you for your referral. Yumiko [id number]
[2018-07-25] MEDS ORDERED: PARoxetine HCL 10 MG TABLET (FP) ONE (21:23)
[2018-07-25] MEDS ORDERED: INSULIN (NOVOLOG) ASPART 100 UNITS/ML 10ML VIAL ONE (21:23)
[2018-07-25] MEDS: RANITIDINE HCL 150 MG TABLET (FP) PO SCH (21:35)
[2018-07-25] MEDS: DOCUSATE SODIUM 100 MG CAPSULE (FP) PO SCH (21:35)
[2018-07-25] MEDS: PARoxetine HCL 20 MG TABLET (FP) PO SCH (21:36)
[2018-07-25] MEDS: ATORVASTATIN CA 40 MG TABLET (FP) PO SCH (21:36)
[2018-07-25] MEDS: ACETAMINOPHEN 325 MG TABLET (FP) PO PRN (23:42)
[2018-07-26] MEDS: INSULIN SLIDING SCALE (NOVOLOG) 1 VIAL SQ SCH ×4 (06:12→21:50)
[2018-07-26] MEDS: sitaGLIPtin PHOSPHATE 50 MG TABLET PO SCH (06:28)
[2018-07-26 07:21] LABS: BASO % 0.9 % (0-2.0); EOS % 5.4 % (0-4.5); HEMATOCRIT 35.5 % (32.4-45.2); HEMOGLOBIN 11.5 GM/dL (10.7-15.3); LYMPH % 8.4 % (8-40); MCH 29.3 pg (25.7-33.7); MCHC 32.3 g/dl (32.0-36.0); MEAN CELL VOLUME 90.7 fl (80-96); MEAN PLT VOLUME 8.2 fl (7.5-11.1); MONO % 10.8 % (3.8-10.2); NEUT % 74.5 % (42.8-82.8); PLATELET COUNT 238 K/MM3 (134-434); RBC 3.92 M/mm3 (3.60-5.2); WHITE BLOOD COUNT 6.4 K/mm3 (4.0-10.0)
[2018-07-26] MEDS: ALBUTEROL SO4 2.5/IPRATROPIUM 0.5 INH SOL 3 ML VIAL.NEB. NEB SCH ×4 (07:52→20:15)
[2018-07-26 08:02] LABS: CHLORIDE 98 mmol/L (98-107); POTASSIUM 4.6 mmol/L (3.5-5.1); SODIUM 137 mmol/L (136-145)
[2018-07-26 08:13] LABS: ALBUMIN 3.2 g/dl (3.4-5.0); ALK PHOS 142 U/L (45-117); ANION GAP 7 MMOL/L (8-16); BILIRUBIN,TOTAL 0.5 mg/dL (0.2-1.0); BLOOD UREA NITROGEN 29 mg/dL (7-18); CALCIUM 8.8 mg/dL (8.5-10.1); CO2 32 mmol/L (21-32); CREATININE 1.4 mg/dL (0.55-1.3); GLUCOSE,RANDOM 98 mg/dL (74-106); SGOT/AST 13 U/L (15-37); SGPT/ALT 16 U/L (13-61); TOT PROT 6.7 g/dl (6.4-8.2)
--- NOTE | 2018-07-26 08:39 | PN ---
Progress Note, Physician Chief Complaint: EVENTS AND NOTES REVIEWED SCHEDULING STRESS TEST SATURDAY - Current Medication List Current Medications: Active Medications Acetaminophen (Tylenol -) 650 mg PO Q6H PRN PRN Reason: PAIN LEVEL 1-5 Last Admin: 07/25/18 23:42 Dose: 650 mg Albuterol/Ipratropium (Duoneb -) 1 amp NEB RQID [facility] Last Admin: 07/26/18 07:52 Dose: 1 amp Ascorbic Acid (Vitamin C -) 500 mg PO DAILY [facility] Last Admin: 07/25/18 10:17 Dose: 500 mg Aspirin (Asa -) 81 mg PO DAILY [facility] Last Admin: 07/25/18 10:17 Dose: 81 mg Atorvastatin Calcium (Lipitor -) 40 mg PO HS [facility] Last Admin: 07/25/18 21:36 Dose: 40 mg Calcium Carbonate/Cholecalciferol (Os-Keshawn 500+D -) 1 tab PO DAILY [facility] Last Admin: 07/25/18 10:16 Dose: 1 tab Camphor/Menthol (Sarna Anti-Itch -) 1 applic TP BID [facility] Last Admin: 07/25/18 21:49 Dose: 1 applic Cholecalciferol (Vitamin D3 -) 1,000 unit PO DAILY [facility] Last Admin: 07/25/18 10:16 Dose: 1,000 unit Diltiazem HCl (Cardizem Cd -) 120 mg PO DAILY [facility] Last Admin: 07/25/18 10:17 Dose: 120 mg Docusate Sodium (Colace -) 100 mg PO HS [facility] Last Admin: 07/25/18 21:35 Dose: 100 mg Donepezil HCl (Aricept -) 5 mg PO DAILY [facility] Last Admin: 07/25/18 10:17 Dose: 5 mg Ferrous Sulfate (Feosol -) 325 mg PO DAILY [facility] Last Admin: 07/25/18 10:17 Dose: 325 mg Ceftriaxone Sodium 1 gm/ (Dextrose) 50 mls @ 100 mls/hr IVPB DAILY [facility]; Protocol Stop: 07/28/18 13:59 Last Admin: 07/25/18 15:22 Dose: 100 mls/hr Insulin Aspart (Novolog Vial Sliding Scale -) 1 vial SQ ACHS [facility]; Protocol Last Admin: 07/26/18 06:12 Dose: Not Given Lactobacillus Acidophilus (Bacid -) 1 tab PO BID [facility] Last Admin: 07/25/18 21:36 Dose: 1 tab Non-Formulary Medication (Mirabegron [Myrbetriq]) 50 mg PO DAILY [facility] Nystatin (Nystop Powder -) 1 applic TP BID [facility] Last Admin: 07/25/18 22:16 Dose: 1 applic Paroxetine HCl (Paxil -) 40 mg PO HS [facility] Last Admin: 07/25/18 21:36 Dose: 40 mg Potassium Chloride (K-Dur -) 20 meq PO BID [facility] Last Admin: 07/25/18 21:35 Dose: 20 meq Ranitidine HCl (Zantac -) 150 mg PO HS [facility] Last Admin: 07/25/18 21:35 Dose: 150 mg Sitagliptin Phosphate (Januvia -) 50 mg PO DAILY@0700 [facility] Last Admin: 07/26/18 06:28 Dose: 50 mg Spironolactone (Aldactone -) 25 mg PO BID [facility] Last Admin: 07/25/18 21:36 Dose: 25 mg - Objective Vital Signs: Vital Signs Temperature 98.0 F 07/26/18 06:00 Pulse Rate 68 07/26/18 06:00 Respiratory Rate 18 07/26/18 06:00 Blood Pressure 137/55 07/26/18 06:00 O2 Sat by Pulse Oximetry (%) 100 07/26/18 04:00 Constitutional: Yes: No Distress Eyes: Yes: WNL HENT: Yes: WNL Neck: Yes: WNL Cardiovascular: Yes: WNL Respiratory: Yes: WNL Gastrointestinal: Yes: WNL Edema: No Peripheral Pulses WNL: Yes Integumentary: Yes: WNL Wound/Incision: Yes: Clean/Dry Neurological: Yes: WNL ...Motor Strength: LLE, RLE Psychiatric: Yes: WNL Labs: CBC, BMP 07/26/18 06:00 07/26/18 06:00 Problem List - Problems (1) Chest pain Code(s): R07.9 - CHEST PAIN, UNSPECIFIED (2) Acute on chronic respiratory failure with hypoxia and hypercapnia Code(s): J96.21 - ACUTE AND CHRONIC RESPIRATORY FAILURE WITH HYPOXIA; J96.22 - ACUTE AND CHRONIC RESPIRATORY FAILURE WITH HYPERCAPNIA (3) [id number] kidney injury Code(s): N17.9 - ACUTE KIDNEY FAILURE, UNSPECIFIED; N18.9 - CHRONIC KIDNEY DISEASE, UNSPECIFIED (4) Anemia Code(s): D64.9 - ANEMIA, UNSPECIFIED Qualifiers: Anemia type: iron deficiency Iron deficiency anemia type: unspecified iron deficiency Qualified Code(s): D50.9 - Iron deficiency anemia, unspecified Assessment/Plan STRESS TEST SATURDAY CARDIO EVAL APPRECIATED OOB TO CHAIR WITH ASSIST PT JUAN
[2018-07-26] MEDS ORDERED: PT OWN MED DRAWER 7, Y5N ONE ×3 (09:21→21:18)
[2018-07-26] MEDS ORDERED: cefTRIAXone SODIUM 1 GM VIAL ONE (09:21)
[2018-07-26] MEDS ORDERED: DEXTROSE 5%-WATER - 50 ML IVPB ONE (09:21)
[2018-07-26] MEDS: CEFTRIAXONE 1 GM in DEXTROSE 5%-WATER - 50 ML IVPB SCH (09:58)
[2018-07-26] MEDS: CHOLECALCIFEROL (VITAMIN D3) 1,000 UNIT TABLET (FP) PO SCH (09:59)
[2018-07-26] MEDS: ASPIRIN 81 MG CHEWABLE TABLETS PO SCH (09:59)
[2018-07-26] MEDS: ASCORBIC ACID 500 MG TABLET (FP) PO SCH (09:59)
[2018-07-26] MEDS: LACTOBACILLUS ACIDOPHILUS 1 TABLET PO SCH ×2 (09:59→21:32)
[2018-07-26] MEDS: CALCIUM 500MG/VIT-D 200 UNITS COMBO TABLET (FP) PO SCH (09:59)
[2018-07-26] MEDS: FERROUS SO4 325 MG TABLET (FP) PO SCH (09:59)
[2018-07-26] MEDS: POTASSIUM CHLORIDE TABS 20 MEQ TABLET.ER (FP) PO SCH ×2 (09:59→21:32)
[2018-07-26] MEDS: SPIRONOLACTONE 25 MG TABLET (FP) PO SCH ×2 (09:59→21:34)
[2018-07-26] MEDS: MENTHOL/CAMPHOR 1 APPLIC BTL TP SCH ×2 (10:00→21:35)
[2018-07-26] MEDS: DONEPEZIL HCL 5 MG TABLET (FP) PO SCH (10:00)
[2018-07-26] MEDS: NYSTATIN POWDER 100,000 UNITS/GM - 15 GM TOPICAL POWDER TP SCH ×2 (10:01→21:34)
[2018-07-26] MEDS ORDERED: PARoxetine HCL 10 MG TABLET (FP) ONE (21:18)
[2018-07-26] MEDS ORDERED: INSULIN (NOVOLOG) ASPART 100 UNITS/ML 10ML VIAL ONE (21:30)
[2018-07-26] MEDS: ATORVASTATIN CA 40 MG TABLET (FP) PO SCH (21:32)
[2018-07-26] MEDS: RANITIDINE HCL 150 MG TABLET (FP) PO SCH (21:32)
[2018-07-26] MEDS: ACETAMINOPHEN 325 MG TABLET (FP) PO PRN (21:33)
[2018-07-26] MEDS: DOCUSATE SODIUM 100 MG CAPSULE (FP) PO SCH (21:33)
[2018-07-26] MEDS: PARoxetine HCL 20 MG TABLET (FP) PO SCH (21:35)
[2018-07-27] MEDS: INSULIN SLIDING SCALE (NOVOLOG) 1 VIAL SQ SCH ×4 (06:05→23:14)
[2018-07-27] MEDS: sitaGLIPtin PHOSPHATE 50 MG TABLET PO SCH (06:54)
[2018-07-27 07:07] LABS: HEMATOCRIT 35.6 % (32.4-45.2); HEMOGLOBIN 11.6 GM/dL (10.7-15.3); MCH 29.7 pg (25.7-33.7); MCHC 32.7 g/dl (32.0-36.0); MEAN CELL VOLUME 90.9 fl (80-96); MEAN PLT VOLUME 8.7 fl (7.5-11.1); PLATELET COUNT 232 K/MM3 (134-434); RBC 3.92 M/mm3 (3.60-5.2); RDW 14.2 % (11.6-15.6); WHITE BLOOD COUNT 6.3 K/mm3 (4.0-10.0)
[2018-07-27 07:37] LABS: ALBUMIN 3.2 g/dl (3.4-5.0); ANION GAP 7 MMOL/L (8-16); BILIRUBIN,TOTAL 0.3 mg/dL (0.2-1.0); BLOOD UREA NITROGEN 36 mg/dL (7-18); CALCIUM 8.7 mg/dL (8.5-10.1); CHLORIDE 99 mmol/L (98-107); CO2 31 mmol/L (21-32); CREATININE 1.5 mg/dL (0.55-1.3); GLUCOSE,RANDOM 92 mg/dL (74-106); MAGNESIUM 2.1 mg/dL (1.8-2.4); POTASSIUM 4.4 mmol/L (3.5-5.1); SGOT/AST 15 U/L (15-37); SGPT/ALT 16 U/L (13-61); SODIUM 137 mmol/L (136-145); TOT PROT 6.7 g/dl (6.4-8.2)
[2018-07-27 07:38] LABS: ALK PHOS 134 U/L (45-117)
[2018-07-27] MEDS: ALBUTEROL SO4 2.5/IPRATROPIUM 0.5 INH SOL 3 ML VIAL.NEB. NEB SCH ×4 (07:45→20:49)
[2018-07-27] MEDS ORDERED: DEXTROSE 5%-WATER - 50 ML IVPB ONE (08:32)
[2018-07-27] MEDS ORDERED: cefTRIAXone SODIUM 1 GM VIAL ONE (08:32)
[2018-07-27] MEDS: LACTOBACILLUS ACIDOPHILUS 1 TABLET PO SCH ×2 (09:02→22:54)
[2018-07-27] MEDS: ASCORBIC ACID 500 MG TABLET (FP) PO SCH (09:02)
[2018-07-27] MEDS: CEFTRIAXONE 1 GM in DEXTROSE 5%-WATER - 50 ML IVPB SCH (09:02)
[2018-07-27] MEDS: CHOLECALCIFEROL (VITAMIN D3) 1,000 UNIT TABLET (FP) PO SCH (09:02)
[2018-07-27] MEDS: ASPIRIN 81 MG CHEWABLE TABLETS PO SCH (09:02)
[2018-07-27] MEDS: POTASSIUM CHLORIDE TABS 20 MEQ TABLET.ER (FP) PO SCH ×2 (09:03→22:55)
[2018-07-27] MEDS: MENTHOL/CAMPHOR 1 APPLIC BTL TP SCH ×2 (09:03→22:55)
[2018-07-27] MEDS: DONEPEZIL HCL 5 MG TABLET (FP) PO SCH (09:03)
[2018-07-27] MEDS: CALCIUM 500MG/VIT-D 200 UNITS COMBO TABLET (FP) PO SCH (09:03)
[2018-07-27] MEDS: SPIRONOLACTONE 25 MG TABLET (FP) PO SCH ×2 (09:03→22:55)
[2018-07-27] MEDS: FERROUS SO4 325 MG TABLET (FP) PO SCH (09:03)
[2018-07-27] MEDS: NYSTATIN POWDER 100,000 UNITS/GM - 15 GM TOPICAL POWDER TP SCH ×2 (09:04→22:55)
--- NOTE | 2018-07-27 11:58 | PN ---
Progress Note, Physician Chief Complaint: AWAKE ALERT COMFORTABLE - Current Medication List Current Medications: Active Medications Acetaminophen (Tylenol -) 650 mg PO Q6H PRN PRN Reason: PAIN LEVEL 1-5 Last Admin: 07/26/18 21:33 Dose: 650 mg Albuterol/Ipratropium (Duoneb -) 1 amp NEB RQID [facility] Last Admin: 07/27/18 11:52 Dose: 1 amp Ascorbic Acid (Vitamin C -) 500 mg PO DAILY [facility] Last Admin: 07/27/18 09:02 Dose: 500 mg Aspirin (Asa -) 81 mg PO DAILY [facility] Last Admin: 07/27/18 09:02 Dose: 81 mg Atorvastatin Calcium (Lipitor -) 40 mg PO HS [facility] Last Admin: 07/26/18 21:32 Dose: 40 mg Calcium Carbonate/Cholecalciferol (Os-Keshawn 500+D -) 1 tab PO DAILY [facility] Last Admin: 07/27/18 09:03 Dose: 1 tab Camphor/Menthol (Sarna Anti-Itch -) 1 applic TP BID [facility] Last Admin: 07/27/18 09:03 Dose: 1 applic Cholecalciferol (Vitamin D3 -) 1,000 unit PO DAILY [facility] Last Admin: 07/27/18 09:02 Dose: 1,000 unit Diltiazem HCl (Cardizem Cd -) 120 mg PO DAILY [facility] Last Admin: 07/27/18 09:02 Dose: 120 mg Docusate Sodium (Colace -) 100 mg PO HS [facility] Last Admin: 07/26/18 21:33 Dose: 100 mg Donepezil HCl (Aricept -) 5 mg PO DAILY [facility] Last Admin: 07/27/18 09:03 Dose: 5 mg Ferrous Sulfate (Feosol -) 325 mg PO DAILY [facility] Last Admin: 07/27/18 09:03 Dose: 325 mg Ceftriaxone Sodium 1 gm/ (Dextrose) 50 mls @ 100 mls/hr IVPB DAILY [facility]; Protocol Stop: 07/28/18 13:59 Last Admin: 07/27/18 09:02 Dose: 100 mls/hr Insulin Aspart (Novolog Vial Sliding Scale -) 1 vial SQ ACHS [facility]; Protocol Last Admin: 07/27/18 06:05 Dose: Not Given Lactobacillus Acidophilus (Bacid -) 1 tab PO BID [facility] Last Admin: 07/27/18 09:02 Dose: 1 tab Non-Formulary Medication (Mirabegron [Myrbetriq]) 50 mg PO DAILY [facility] Nystatin (Nystop Powder -) 1 applic TP BID [facility] Last Admin: 07/27/18 09:04 Dose: 1 applic Paroxetine HCl (Paxil -) 40 mg PO [facility] Last Admin: 07/26/18 21:35 Dose: 40 mg Potassium Chloride (K-Dur -) 20 meq PO BID [facility] Last Admin: 07/27/18 09:03 Dose: 20 meq Ranitidine HCl (Zantac -) 150 mg PO [facility] Last Admin: 07/26/18 21:32 Dose: 150 mg Sitagliptin Phosphate (Januvia -) 50 mg PO DAILY@0700 [facility] Last Admin: 07/27/18 06:54 Dose: 50 mg Spironolactone (Aldactone -) 25 mg PO BID [facility] Last Admin: 07/27/18 09:03 Dose: 25 mg - Objective Vital Signs: Vital Signs Temperature 98.2 F 07/27/18 09:59 Pulse Rate 77 07/27/18 09:59 Respiratory Rate 18 07/27/18 09:59 Blood Pressure 123/85 07/27/18 09:59 O2 Sat by Pulse Oximetry (%) 100 07/27/18 05:00 Constitutional: Yes: Mild Distress Eyes: Yes: WNL HENT: Yes: WNL Neck: Yes: WNL Cardiovascular: Yes: Pulse Irregular Respiratory: Yes: WNL Gastrointestinal: Yes: WNL Genitourinary: Yes: WNL Musculoskeletal: Yes: Muscle Weakness Edema: Yes Edema: LLE: Trace, RLE: Trace Peripheral Pulses WNL: Yes Integumentary: Yes: WNL Wound/Incision: Yes: Clean/Dry Neurological: Yes: WNL ...Motor Strength: WNL Psychiatric: Yes: WNL Labs: CBC, BMP 07/27/18 06:14 07/27/18 06:14 Problem List - Problems (1) Chest pain Code(s): R07.9 - CHEST PAIN, UNSPECIFIED (2) Acute on chronic respiratory failure with hypoxia and hypercapnia Code(s): J96.21 - ACUTE AND CHRONIC RESPIRATORY FAILURE WITH HYPOXIA; J96.22 - ACUTE AND CHRONIC RESPIRATORY FAILURE WITH HYPERCAPNIA (3) [id number] kidney injury Code(s): N17.9 - ACUTE KIDNEY FAILURE, UNSPECIFIED; N18.9 - CHRONIC KIDNEY DISEASE, UNSPECIFIED (4) Anemia Code(s): D64.9 - ANEMIA, UNSPECIFIED Qualifiers: Anemia type: iron deficiency Iron deficiency anemia type: unspecified iron deficiency Qualified Code(s): D50.9 - Iron deficiency anemia, unspecified Assessment/Plan STRESS TEST AM SESTAMIBI STRESS TEST PT JUAN
--- NOTE | 2018-07-27 12:59 | PN ---
Progress Note (short form) - Note Progress Note: 77 year old femle admitted with chest pains, known case of NIDDM, HLD, mitral valve disorder,HTN and tabacco abuse, h/o anemia. No further episode of chest or discomfort, no SOB. Active Medications Acetaminophen (Tylenol -) 650 mg PO Q6H PRN PRN Reason: PAIN LEVEL 1-5 Last Admin: 07/26/18 21:33 Dose: 650 mg Albuterol/Ipratropium (Duoneb -) 1 amp NEB RQID [facility] Last Admin: 07/27/18 11:52 Dose: 1 amp Ascorbic Acid (Vitamin C -) 500 mg PO DAILY [facility] Last Admin: 07/27/18 09:02 Dose: 500 mg Aspirin (Asa -) 81 mg PO DAILY [facility] Last Admin: 07/27/18 09:02 Dose: 81 mg Atorvastatin Calcium (Lipitor -) 40 mg PO HS [facility] Last Admin: 07/26/18 21:32 Dose: 40 mg Calcium Carbonate/Cholecalciferol (Os-Keshawn 500+D -) 1 tab PO DAILY [facility] Last Admin: 07/27/18 09:03 Dose: 1 tab Camphor/Menthol (Sarna Anti-Itch -) 1 applic TP BID [facility] Last Admin: 07/27/18 09:03 Dose: 1 applic Cholecalciferol (Vitamin D3 -) 1,000 unit PO DAILY [facility] Last Admin: 07/27/18 09:02 Dose: 1,000 unit Diltiazem HCl (Cardizem Cd -) 120 mg PO DAILY [facility] Last Admin: 07/27/18 09:02 Dose: 120 mg Docusate Sodium (Colace -) 100 mg PO HS [facility] Last Admin: 07/26/18 21:33 Dose: 100 mg Donepezil HCl (Aricept -) 5 mg PO DAILY [facility] Last Admin: 07/27/18 09:03 Dose: 5 mg Ferrous Sulfate (Feosol -) 325 mg PO DAILY [facility] Last Admin: 07/27/18 09:03 Dose: 325 mg Ceftriaxone Sodium 1 gm/ (Dextrose) 50 mls @ 100 mls/hr IVPB DAILY [facility]; Protocol Stop: 07/28/18 13:59 Last Admin: 07/27/18 09:02 Dose: 100 mls/hr Insulin Aspart (Novolog Vial Sliding Scale -) 1 vial SQ ACHS [facility]; Protocol Last Admin: 07/27/18 12:07 Dose: 2 units Lactobacillus Acidophilus (Bacid -) 1 tab PO BID [facility] Last Admin: 07/27/18 09:02 Dose: 1 tab Non-Formulary Medication (Mirabegron [Myrbetriq]) 50 mg PO DAILY [facility] Nystatin (Nystop Powder -) 1 applic TP BID [facility] Last Admin: 07/27/18 09:04 Dose: 1 applic Paroxetine HCl (Paxil -) 40 mg PO HS [facility] Last Admin: 07/26/18 21:35 Dose: 40 mg Potassium Chloride (K-Dur -) 20 meq PO BID [facility] Last Admin: 07/27/18 09:03 Dose: 20 meq Ranitidine HCl (Zantac -) 150 mg PO HS [facility] Last Admin: 07/26/18 21:32 Dose: 150 mg Sitagliptin Phosphate (Januvia -) 50 mg PO DAILY@0700 [facility] Last Admin: 07/27/18 06:54 Dose: 50 mg Spironolactone (Aldactone -) 25 mg PO BID [facility] Last Admin: 07/27/18 09:03 Dose: 25 mg OOB in a chair, no pallor, cyanosis, clubbing or jaundice. Last Vital Signs Temp Pulse Resp BP Pulse Ox 98.2 F 77 18 123/85 100 07/27/18 09:59 07/27/18 09:59 07/27/18 09:59 07/27/18 09:59 07/27/18 05:00 NECK: Supple, no JVP, carotids 2+. HEART: S1&S2 are normal SEMI/ at the second RT. ICS, grade I/ decrescendo systolic murmur at the apex. LUNGS: Fine creps. at both bases unchanged with coughing. ABDOMEN: Soft, no organomegaly,no msaaes felt. EXTREMITIES:No calf tenderness or dependent edema. CBC, BMP 07/27/18 06:14 07/27/18 06:14 IMPRESSION: 1.Chest pain compatible wit CAD, angina,ppted by severe anemia. 2.Hypertension. 3.NIDDM. 4.COPD(without broncospasm). RECOMMENDATIONS: 1.Lexiscan ETT ordered. 2.Continue current cardiac therapy. 3.Further suggestions will depend on the stress report.
[2018-07-27] MEDS ORDERED: PARoxetine HCL 10 MG TABLET (FP) ONE (22:51)
[2018-07-27] MEDS: ATORVASTATIN CA 40 MG TABLET (FP) PO SCH (22:54)
[2018-07-27] MEDS: RANITIDINE HCL 150 MG TABLET (FP) PO SCH (22:55)
[2018-07-27] MEDS: PARoxetine HCL 20 MG TABLET (FP) PO SCH (22:55)
[2018-07-27] MEDS: DOCUSATE SODIUM 100 MG CAPSULE (FP) PO SCH (22:55)
[2018-07-27] MEDS: ACETAMINOPHEN 325 MG TABLET (FP) PO PRN (22:56)
[2018-07-28] MEDS: INSULIN SLIDING SCALE (NOVOLOG) 1 VIAL SQ SCH ×4 (06:04→23:17)
[2018-07-28] MEDS: sitaGLIPtin PHOSPHATE 50 MG TABLET PO SCH (06:04)
[2018-07-28] MEDS: ALBUTEROL SO4 2.5/IPRATROPIUM 0.5 INH SOL 3 ML VIAL.NEB. NEB SCH ×4 (07:33→19:13)
--- NOTE | 2018-07-28 08:44 | PN ---
Progress Note, Physician History of Present Illness: feels better intermittent chest tightness - Current Medication List Current Medications: Active Medications Acetaminophen (Tylenol -) 650 mg PO Q6H PRN PRN Reason: PAIN LEVEL 1-5 Last Admin: 07/27/18 22:56 Dose: 650 mg Albuterol/Ipratropium (Duoneb -) 1 amp NEB RQID [facility] Last Admin: 07/28/18 07:33 Dose: 1 amp Ascorbic Acid (Vitamin C -) 500 mg PO DAILY [facility] Last Admin: 07/27/18 09:02 Dose: 500 mg Aspirin (Asa -) 81 mg PO DAILY [facility] Last Admin: 07/27/18 09:02 Dose: 81 mg Atorvastatin Calcium (Lipitor -) 40 mg PO HS [facility] Last Admin: 07/27/18 22:54 Dose: 40 mg Calcium Carbonate/Cholecalciferol (Os-Keshawn 500+D -) 1 tab PO DAILY [facility] Last Admin: 07/27/18 09:03 Dose: 1 tab Camphor/Menthol (Sarna Anti-Itch -) 1 applic TP BID [facility] Last Admin: 07/27/18 22:55 Dose: 1 applic Cholecalciferol (Vitamin D3 -) 1,000 unit PO DAILY [facility] Last Admin: 07/27/18 09:02 Dose: 1,000 unit Diltiazem HCl (Cardizem Cd -) 120 mg PO DAILY [facility] Last Admin: 07/28/18 08:44 Dose: 120 mg Docusate Sodium (Colace -) 100 mg PO HS [facility] Last Admin: 07/27/18 22:55 Dose: 100 mg Donepezil HCl (Aricept -) 5 mg PO DAILY [facility] Last Admin: 07/27/18 09:03 Dose: 5 mg Ferrous Sulfate (Feosol -) 325 mg PO DAILY [facility] Last Admin: 07/27/18 09:03 Dose: 325 mg Ceftriaxone Sodium 1 gm/ (Dextrose) 50 mls @ 100 mls/hr IVPB DAILY [facility]; Protocol Stop: 07/28/18 13:59 Last Admin: 07/27/18 09:02 Dose: 100 mls/hr Insulin Aspart (Novolog Vial Sliding Scale -) 1 vial SQ ACHS [facility]; Protocol Last Admin: 07/28/18 06:04 Dose: Not Given Lactobacillus Acidophilus (Bacid -) 1 tab PO BID [facility] Last Admin: 07/27/18 22:54 Dose: 1 tab Non-Formulary Medication (Mirabegron [Myrbetriq]) 50 mg PO DAILY [facility] Nystatin (Nystop Powder -) 1 applic TP BID [facility] Last Admin: 07/27/18 22:55 Dose: 1 applic Paroxetine HCl (Paxil -) 40 mg PO [facility] Last Admin: 07/27/18 22:55 Dose: 40 mg Potassium Chloride (K-Dur -) 20 meq PO BID [facility] Last Admin: 07/27/18 22:55 Dose: 20 meq Ranitidine HCl (Zantac -) 150 mg PO [facility] Last Admin: 07/27/18 22:55 Dose: 150 mg Sitagliptin Phosphate (Januvia -) 50 mg PO DAILY@0700 [facility] Last Admin: 07/28/18 06:04 Dose: Not Given Spironolactone (Aldactone -) 25 mg PO BID [facility] Last Admin: 07/27/18 22:55 Dose: 25 mg - Objective Vital Signs: Vital Signs Temperature 98.2 F 07/28/18 08:36 Pulse Rate 69 07/28/18 08:36 Respiratory Rate 20 07/28/18 08:36 Blood Pressure 119/59 07/28/18 08:36 O2 Sat by Pulse Oximetry (%) 99 07/27/18 21:00 Respiratory: Yes: Rhonchi. No: Wheezes Gastrointestinal: Yes: Normal Bowel Sounds, Soft Labs: CBC, BMP 07/27/18 06:14 07/27/18 06:14 Assessment/Plan - Problems (1) Chest pain Assessment/Plan: CE 3 sets negative echo ordered last was in 2016 dr rivera on case--await stress test currently chest pain free Code(s): R07.9 - CHEST PAIN, UNSPECIFIED (2) CHF (congestive heart failure) Assessment/Plan: aldactone cardizem Code(s): I50.9 - HEART FAILURE, UNSPECIFIED (3) Dementia Assessment/Plan: aricept Code(s): F03.90 - UNSPECIFIED DEMENTIA WITHOUT BEHAVIORAL DISTURBANCE (4) Anemia Assessment/Plan: ferrous sulfate Code(s): D64.9 - ANEMIA, UNSPECIFIED Qualifiers: Anemia type: iron deficiency Iron deficiency anemia type: unspecified iron deficiency Qualified Code(s): D50.9 - Iron deficiency anemia, unspecified (5) Overactive bladder Assessment/Plan: myrbetriq Code(s): N32.81 - OVERACTIVE BLADDER (6) Diabetes Assessment/Plan: januvia and sliding scale Code(s): E11.9 - TYPE 2 DIABETES MELLITUS WITHOUT COMPLICATIONS Qualifiers: Diabetes mellitus type: type 2 Diabetes mellitus senior care insulin use: without long term care phlebotomist use Diabetes mellitus complication status: without complication Qualified Code(s): E11.9 - Type 2 diabetes mellitus without complications (7) COPD--Abnormal Ct Assessment/Plan: nebs -ct of chest
[2018-07-28] MEDS ORDERED: REGADENOSON 0.4 MG/5 ML PRE-FILLED SYRINGE IVPUSH ONE ×2 (09:15→12:47)
[2018-07-28] MEDS ORDERED: cefTRIAXone SODIUM 1 GM VIAL ONE (11:01)
[2018-07-28] MEDS ORDERED: DEXTROSE 5%-WATER - 50 ML IVPB ONE (11:01)
[2018-07-28] MEDS ORDERED: INSULIN (NOVOLOG) ASPART 100 UNITS/ML 10ML VIAL ONE (11:02)
[2018-07-28] MEDS ORDERED: PT OWN MED DRAWER 7, Y5N ONE (11:02)
[2018-07-28] MEDS ORDERED: AMINOPHYLLINE 250 MG/10 ML VIAL IVPUSH ONE (13:05)
[2018-07-28] MEDS: CEFTRIAXONE 1 GM in DEXTROSE 5%-WATER - 50 ML IVPB SCH (14:08)
[2018-07-28] MEDS: POTASSIUM CHLORIDE TABS 20 MEQ TABLET.ER (FP) PO SCH ×2 (14:09→23:17)
[2018-07-28] MEDS: CHOLECALCIFEROL (VITAMIN D3) 1,000 UNIT TABLET (FP) PO SCH (14:10)
[2018-07-28] MEDS: LACTOBACILLUS ACIDOPHILUS 1 TABLET PO SCH ×2 (14:10→23:16)
[2018-07-28] MEDS: FERROUS SO4 325 MG TABLET (FP) PO SCH (14:10)
[2018-07-28] MEDS: DONEPEZIL HCL 5 MG TABLET (FP) PO SCH (14:11)
[2018-07-28] MEDS: ASPIRIN 81 MG CHEWABLE TABLETS PO SCH (14:11)
[2018-07-28] MEDS: SPIRONOLACTONE 25 MG TABLET (FP) PO SCH ×2 (14:11→23:17)
[2018-07-28] MEDS: MENTHOL/CAMPHOR 1 APPLIC BTL TP SCH ×2 (14:12→23:25)
[2018-07-28] MEDS: NYSTATIN POWDER 100,000 UNITS/GM - 15 GM TOPICAL POWDER TP SCH ×2 (14:12→23:25)
[2018-07-28] MEDS: ASCORBIC ACID 500 MG TABLET (FP) PO SCH (14:13)
[2018-07-28] MEDS: CALCIUM 500MG/VIT-D 200 UNITS COMBO TABLET (FP) PO SCH (14:24)
[2018-07-28] MEDS ORDERED: PARoxetine HCL 10 MG TABLET (FP) ONE (23:12)
[2018-07-28] MEDS: ATORVASTATIN CA 40 MG TABLET (FP) PO SCH (23:16)
[2018-07-28] MEDS: RANITIDINE HCL 150 MG TABLET (FP) PO SCH (23:17)
[2018-07-28] MEDS: DOCUSATE SODIUM 100 MG CAPSULE (FP) PO SCH (23:17)
[2018-07-28] MEDS: PARoxetine HCL 20 MG TABLET (FP) PO SCH (23:17)
[2018-07-29] MEDS: INSULIN SLIDING SCALE (NOVOLOG) 1 VIAL SQ SCH ×2 (05:59→11:53)
[2018-07-29] MEDS: ALBUTEROL SO4 2.5/IPRATROPIUM 0.5 INH SOL 3 ML VIAL.NEB. NEB SCH (08:00)
[2018-07-29] MEDS: sitaGLIPtin PHOSPHATE 50 MG TABLET PO SCH (08:33)
--- NOTE | 2018-07-29 08:36 | DS ---
Physical Examination Vital Signs: Vital Signs Temperature 97.7 F 07/29/18 06:00 Pulse Rate 66 07/29/18 06:00 Respiratory Rate 18 07/29/18 06:00 Blood Pressure 142/74 07/29/18 06:00 O2 Sat by Pulse Oximetry (%) 100 07/29/18 05:00 Cardiovascular: Yes: S1, S2 Respiratory: Yes: Regular, CTA Bilaterally Gastrointestinal: Yes: Normal Bowel Sounds, Soft. No: Tenderness Labs: CBC, BMP 07/27/18 06:14 07/27/18 06:14 Discharge Summary Reason For Visit: CHEST PAIN Current Active Problems Chest pain (Acute) Overactive bladder (Acute) Hospital Course: - Problems (1) Chest pain Assessment/Plan: CE 3 sets negative echo ordered last was in 2016 dr rivera on case--await stress test --no ischemia currently chest pain free Code(s): R07.9 - CHEST PAIN, UNSPECIFIED (2) CHF (congestive heart failure) Assessment/Plan: aldactone cardizem Code(s): I50.9 - HEART FAILURE, UNSPECIFIED (3) Dementia Assessment/Plan: aricept Code(s): F03.90 - UNSPECIFIED DEMENTIA WITHOUT BEHAVIORAL DISTURBANCE (4) Anemia Assessment/Plan: ferrous sulfate Code(s): D64.9 - ANEMIA, UNSPECIFIED Qualifiers: Anemia type: iron deficiency Iron deficiency anemia type: unspecified iron deficiency Qualified Code(s): D50.9 - Iron deficiency anemia, unspecified (5) Overactive bladder Assessment/Plan: myrbetriq Code(s): N32.81 - OVERACTIVE BLADDER (6) Diabetes Assessment/Plan: januvia and sliding scale Code(s): E11.9 - TYPE 2 DIABETES MELLITUS WITHOUT COMPLICATIONS Qualifiers: Diabetes mellitus type: type 2 Diabetes mellitus chcf insulin use: without stock drier tender use Diabetes mellitus complication status: without complication Qualified Code(s): E11.9 - Type 2 diabetes mellitus without complications (7) COPD--Abnormal Ct Assessment/Plan: nebs -ct of chest-improved Condition: Stable - Instructions Diet, Activity, Other Instructions: follow up urine culture stop magnesium Disposition: [facility] - Home Medications Comprehensive Discharge Medication List: Ambulatory Orders Ascorbic Acid [Vitamin C] 500 mg PO DAILY 07/23/18 Aspirin 81 mg PO DAILY 07/23/18 Atorvastatin Ca [Lipitor] 40 mg PO HS 07/23/18 Calcium Carbonate/Vitamin D3 [Oyster Shell 500-Vit D3 200 Tb] 1 each PO DAILY Cholecalciferol (Vitamin D3) [Vitamin D3] 1,000 unit PO DAILY 07/23/18 Cranberry Fruit Concentrate [Cran-Max] 500 mg PO DAILY 07/23/18 Diltiazem Cd [Cardizem Cd -] 120 mg PO DAILY 07/23/18 Docusate Sodium [Colace] 100 mg PO HS 07/23/18 Donepezil HCl 5 mg PO DAILY 07/23/18 Ferrous Sulfate 325 mg PO DAILY 07/23/18 Ipratropium/Albuterol Sulfate [Iprat-Albut 0.5-3(2.5) mg/3 ml] 3 ml IH QID 07/23 Lactobacillus Acidophilus [Bacid -] 1 each PO BID 07/23/18 Menthol/Camphor [Sarna Anti-Itch Lotion] 5 ml TP BID 07/23/18 Mirabegron [Myrbetriq] 50 mg PO DAILY 07/23/18 Nystatin Powder [Nystop Powder -] 15 gm TP BID 07/23/18 Paroxetine HCl 40 mg PO HS 07/23/18 Potassium Chloride 20 meq PO BID 07/23/18 Ranitidine HCl [Zantac] 150 mg PO HS 07/23/18 Sitagliptin Phosphate [Januvia] 50 mg PO DAILY 07/23/18 Spironolactone [Aldactone] 25 mg PO BID 07/23/18
[2018-07-29] MEDS ORDERED: PT OWN MED DRAWER 7, Y5N ONE ×2 (09:36→10:21)
[2018-07-29] MEDS: SPIRONOLACTONE 25 MG TABLET (FP) PO SCH (10:09)
[2018-07-29] MEDS: DONEPEZIL HCL 5 MG TABLET (FP) PO SCH (10:09)
[2018-07-29] MEDS: ASPIRIN 81 MG CHEWABLE TABLETS PO SCH (10:10)
[2018-07-29] MEDS: CALCIUM 500MG/VIT-D 200 UNITS COMBO TABLET (FP) PO SCH (10:10)
[2018-07-29] MEDS: FERROUS SO4 325 MG TABLET (FP) PO SCH (10:10)
[2018-07-29] MEDS: POTASSIUM CHLORIDE TABS 20 MEQ TABLET.ER (FP) PO SCH (10:10)
[2018-07-29] MEDS: CHOLECALCIFEROL (VITAMIN D3) 1,000 UNIT TABLET (FP) PO SCH (10:11)
[2018-07-29] MEDS: ASCORBIC ACID 500 MG TABLET (FP) PO SCH (10:11)
--- NOTE | 2018-07-29 10:11 | PN ---
Progress Note (short form) - Note Progress Note: 77 year old femle admitted with chest pains, known case of NIDDM, HLD, mitral valve disorder,HTN and tabacco abuse, h/o anemia. No chest pain or discomfort.No SOB or palpitations. Active Medications Generic Name Dose Route Start Last Admin Trade Name Freq PRN Reason Stop Dose Admin Acetaminophen 650 mg 07/25/18 23:15 07/27/18 22:56 Tylenol - PO 650 mg Q6H PRN Administration PAIN LEVEL 1-5 Albuterol/Ipratropium 1 amp 07/24/18 08:00 07/29/18 08:00 Duoneb - NEB 1 amp RQID LENNIE Administration Ascorbic Acid 500 mg 07/24/18 10:00 07/28/18 14:13 Vitamin C - PO 500 mg DAILY LENNIE Administration Aspirin 81 mg 07/24/18 10:00 07/28/18 14:11 Asa - PO 81 mg DAILY LENNIE Administration Atorvastatin Calcium 40 mg 07/24/18 22:00 07/28/18 23:16 Lipitor - PO 40 mg HS LENNIE Administration Calcium Carbonate/Cholecalciferol 1 tab 07/24/18 10:00 07/28/18 14:24 Os-Keshawn 500+D - PO 1 tab DAILY LENNIE Administration Camphor/Menthol 1 applic 07/24/18 10:00 07/28/18 23:25 Sarna Anti-Itch - TP Not Given BID LENNIE Cholecalciferol 1,000 unit 07/24/18 10:00 07/28/18 14:10 Vitamin D3 - PO 1,000 unit DAILY LENNIE Administration Diltiazem HCl 120 mg 07/24/18 10:00 07/28/18 14:11 Cardizem Cd - PO Not Given DAILY LENNIE Docusate Sodium 100 mg 07/24/18 22:00 07/28/18 23:17 Colace - PO 100 mg HS LENNIE Administration Donepezil HCl 5 mg 07/24/18 10:00 07/28/18 14:11 Aricept - PO 5 mg DAILY LENNIE Administration Ferrous Sulfate 325 mg 07/24/18 10:00 07/28/18 14:10 Feosol - PO 325 mg DAILY LENNIE Administration Insulin Aspart 1 vial 07/24/18 07:00 07/29/18 05:59 Novolog Vial Sliding Scale - SQ Not Given ACHS LENNIE Protocol Lactobacillus Acidophilus 1 tab 07/24/18 10:00 07/28/18 23:16 Bacid - PO 1 tab BID LENNIE Administration Nystatin 1 applic 07/24/18 10:00 07/28/18 23:25 Nystop Powder - TP Not Given BID LENNIE Paroxetine HCl 40 mg 07/24/18 22:00 07/28/18 23:17 Paxil - PO 40 mg HS LENNIE Administration Potassium Chloride 20 meq 07/24/18 10:00 07/28/18 23:17 K-Dur - PO 20 meq BID LENNIE Administration Ranitidine HCl 150 mg 07/24/18 22:00 07/28/18 23:17 Zantac - PO 150 mg HS LENNIE Administration Sitagliptin Phosphate 50 mg 07/24/18 07:00 07/29/18 08:33 Januvia - PO 50 mg DAILY@0700 LENNIE Administration Spironolactone 25 mg 07/24/18 10:00 07/28/18 23:17 Aldactone - PO 25 mg BID LENNIE Administration CBC, BMP 07/27/18 06:14 07/27/18 06:14 Myocardial perfusion scan revealed a fixed inferolateral wall defect compatible with attenuation artifact. Normal wall motion and LVEF 70% NECK: Supple, no JVP, carotids 2+. HEART: S1&S2 are normal SEMI/ at the second RT. ICS, grade I/ decrescendo systolic murmur at the apex. LUNGS: Fine creps. at both bases unchanged with coughing. ABDOMEN: Soft, no organomegaly,no msaaes felt. EXTREMITIES:No calf tenderness or dependent edema. IMPRESSION: 1.Chest pain compatible wit CAD, angina, ppted by severe anemia( Demand ischemia ). 2.Hypertension. 3.NIDDM. 4.COPD(without broncospasm). RECOMMENDATIONS: 1. Continue current cardiac therapyand if necessary increase dose of cardizem 2. Discharge when medically stable.
[2018-07-29] MEDS: NYSTATIN POWDER 100,000 UNITS/GM - 15 GM TOPICAL POWDER TP SCH (10:12)
[2018-07-29] MEDS: MENTHOL/CAMPHOR 1 APPLIC BTL TP SCH (10:12)
[2018-07-29 11:54] VITALS: BP 122/54; PULSE 61; TEMP 98.7
[2018-07-29] MEDS: LACTOBACILLUS ACIDOPHILUS 1 TABLET PO SCH (12:55)
== END 2018-07-29 13:31 ==
LOC: JER 17:26 → JERBED 21:44 → J4S 07-24 14:45
PROVIDERS: ADMIT Internal Medicine; ATTEND Family Medicine
PROC: 3E0F7GC Introduction of Other Therapeutic Substance into Respiratory Tract, Via Natural or Artificial Opening (ICD-10-PCS; principal; 2018-07-23)
DX: R07.9 Chest pain, unspecified (principal); I11.0 Hypertensive heart disease with heart failure; I50.9 Heart failure, unspecified; G30.9 Alzheimer's disease, unspecified; F02.80 Dementia in other diseases classified elsewhere, unspecified severity, without behavioral disturbance, psychotic disturbance, mood disturbance, and anxiety; D50.9 Iron deficiency anemia, unspecified; N32.81 Overactive bladder; E11.9 Type 2 diabetes mellitus without complications; Z79.84 Long term (current) use of oral hypoglycemic drugs; J44.9 Chronic obstructive pulmonary disease, unspecified; Z99.81 Dependence on supplemental oxygen; I34.0 Nonrheumatic mitral (valve) insufficiency; I07.1 Rheumatic tricuspid insufficiency; Z86.73 Personal history of transient ischemic attack (TIA), and cerebral infarction without residual deficits; Z91.81 History of falling; Z87.442 Personal history of urinary calculi; Z87.19 Personal history of other diseases of the digestive system; Z96.642 Presence of left artificial hip joint; Z87.891 Personal history of nicotine dependence; Z79.82 Long term (current) use of aspirin
CPT/HCPCS: 36415; 71045-TC-FY; 71250-TC; 78452-TC; 80048; 80053; 81003; 81015; 82550; 82962; 83735; 83880; 84100; 84484; 85025; 85027; 87086; 93005; 93010; 93017; 93306-TC; 94010; 94640; 99283-25; A9502; G0378; J2785; J7620

== ENCOUNTER 2020-08-22 00:30 | Emergency (ER) | payer OTHER, BC ==
[2020-08-22 00:49] VITALS: BP 130/62; PULSE 70; TEMP 97.2; BMI 22.1
--- OUTSIDE RECORDS SUMMARY | 2020-08-22 00:52 | XMS ---
:1940 [facility] Support Name Relationship Address Phone RE, RETIRED Unavailable Unavailable Unavailable RE Unavailable Unavailable Unavailable MARIANN GUNTER DAUGHTER UNKNOWN UNKNOWN UNKNOWN, UN UNKNOWN FRANNIE BLAIR SON UNKNOWN U UNKNOWN, UN UNKNOWN Re-disclosure Warning The records that you are about to access may contain information from federally- assisted alcohol or drug abuse programs. If such information is present, then the following federally mandated warning applies: This information has been disclosed to you from records protected by federal confidentiality rules (42 CFR part 2). The federal rules prohibit you from making any further disclosure of this information unless further disclosure is expressly permitted by the written consent of the person to whom it pertains or as otherwise permitted by 42 CFR part 2. A general authorization for the release of medical or other information is NOT sufficient for this purpose. The Federal rules restrict any use of the information to criminally investigate or prosecute any alcohol or drug abuse patient.The records that you are about to access may contain highly sensitive health information, the redisclosure of which is protected by Article 27-F of the [place] Public Health law. If you continue you may haveaccess to information: Regarding HIV / AIDS; Provided by facilities licensed or operated by the [place] Office of Mental Health; or Provided by the [place] Office for People With Developmental Disabilities. If such information is present, then the following [place] [facility] mandated warning applies: This information has been disclosed to you from confidential records which are protected by state law. State law prohibits you from making any further disclosure of this information without the specific written consent of the person to whom it pertains, or as otherwise permitted by law. Any unauthorized further disclosure in violation of state law may result in a fine or shelter sentence or both. A general authorization for the release of medical or other information is NOT sufficient authorization for further disclosure. Insurance Providers Payer name Policy type Policy ID Covered Covered constitution party's Policy P anat / Coverage constitution party ID relationship to [employer] orm[employer] type jimenes BC PPO [id number] SP [id number] MEDICARE [id number] SP [id number] MEDICARE [id number] SP [id number] BC PPO [id number] SP [id number] MEDICARE [id number] SP [id number] A Results ID Date Data Source [id number] 08/07/2020 11:18:00 AM EDT [facility] Name Value Range Interpretation Description Data Sup porting Code Source(s) Document(s ) SARS [facility] coronavirus 2 RNA This lab was ordered by [facility] and reported by [facility]. ID Date Data Source [id number] 07/19/2020 12:00:00 AM EDT [facility] Name Value Range Interpretation Code Description Data Dimple rce(s) Supporting Document(s ) 2018-nCoV [facility] RNA XXX EREN+probe- Imp This lab was ordered by JENNIFER AT [facility] [employer] and reported by [employer] ID Date Data Source [id number] 05/17/2020 12:00:00 AM EDT [facility] Name Value Range Interpretation Code Description Data Dimple rce(s) Supporting Document(s ) 2018-nCoV [facility] RNA XXX EREN+probe- Imp This lab was [facility] by [facility] and reported by [employer] ID Date Data Source [id number] 04/26/2020 12:00:00 AM EDT [facility] Name Value Range Interpretation Code Description Data Dimple rce(s) Supporting Document(s ) 2018-nCoV [facility] RNA XXX EREN+probe- Imp This lab was ordered by [employer] and reported by [employer] ID Date Data Source [id number] 04/15/2020 12:00:00 AM EDT [facility] Name Value Range Interpretation Code Description Data Dimple rce(s) Supporting Document(s ) 2018-nCoV [facility] RNA XXX EREN+probe- Imp This lab was ordered by [facility] and reported by [employer] ID Date Data Source [id number] 04/03/2020 12:00:00 AM EDT [facility] Name Value Range Interpretation Code Description Data Dimple rce(s) Supporting Document(s ) 2019-nCoV [facility] RNA XXX EREN+probe- Imp This lab [facility] and reported by [employer]. ID Date Data Source [id number] 02/22/2020 12:00:00 PM EDT [facility] Name Value Range Interpretation Description Data Sup porting Code Source(s) Document(s ) SARS CoV-2 [facility] Interpretation This lab was ordered by [facility] and reported by [employer]. Procedure
--- NOTE | 2020-08-22 01:16 | PDOC ---
History of Present Illness <Aura Nunez - Last Filed: 08/22/20 02:18> - History of Present Illness Initial Comments: 79 YOF h/o CVA, diabetes, htn presents from [facility] for fall. Patient reports she was walking in her room, fell suddenly and struck her forehead on a bedside table, she also hit her knees, both hands and hips. She denies dizziness and lightheaded prior to falling. She denies losing consciousness. She otherwise denies CP, SOB, N/V/D, fever or chills. Constitutional: No Weight Change, No Fever, No Chills, No Night Sweats, No Fatigue, No Malaise ENT/Mouth: No Hearing Changes, No Ear Pain, No Nasal Congestion, No Sinus Pain, No Hoarseness, No sore throat, No Rhinorrhea, No Swallowing Difficulty Eyes: No Eye Pain, No Swelling, No Redness, No Foreign Body, No Discharge, No Vision Changes Cardiovascular: No Chest Pain, No SOB, No PND, No Dyspnea on Exertion, No Orthopnea, No Claudication, No Edema, No Palpitations Respiratory: No Cough, No Sputum, No Wheezing, No Smoke Exposure, No Dyspnea Gastrointestinal: No Nausea, No Vomiting, No Diarrhea, No Constipation, No Pain, No Heartburn, No Anorexia, No Dysphagia, No Hematochezia, No Melena, No Flatulence, No Jaundice Genitourinary: No Dysmenorrhea, No DUB, No Dyspareunia, No Dysuria, No Urinary Frequency, No Hematuria, No Urinary Incontinence, No Urgency, No Flank Pain, No Urinary Flow Changes, No Hesitancy Musculoskeletal: No Arthralgias, No Myalgias, No Joint Swelling, No Joint Stiffness, No Back Pain, No Neck Pain, No Injury History Skin: No Skin Lesions, No Pruritis, No Hair Changes, No Breast/Skin Changes, No Nipple Discharge Neuro: No Weakness, No Numbness, No Paresthesias, No Loss of Consciousness, No Syncope, No Dizziness, No Headache, No Coordination Changes, No Recent Falls Psych: No Anxiety/Panic, No Depression, No Insomnia, No Personality Changes, No Delusions, No Rumination, No SI/HI/AH/VH, No Social Issues, No Memory Changes, No Violence/Abuse Hx., No Eating Concerns Heme/Lymph: No Bruising, No Bleeding, No Transfusions History, No Lymphadenopathy Endocrine: No Polyuria, No Polydipsia, No Temperature Intolerance <Rickey Charlton - Last Filed: 08/22/20 04:07> - General Chief Complaint: Injury Stated Complaint: FALL Time Seen by Provider: 08/22/20 00:52 Past History <Aura Nunez - Last Filed: 08/22/20 02:18> - Medical History Anemia: Yes (IRON DEFICIENCY) Cardiac Disorders: Yes (HX MVP; ASHD; CAD) CVA: Yes (TIA) COPD: Yes (FREQUENT BRONCHITIS) CHF: Yes Dementia: Yes Diabetes: Yes (NIDDM) GI Disorders: Yes (HX GI BLEED; DIVERTICULOSIS;ESOPHAGITIS;AVM; HIATAL HERNIA; POLYPS,REFLUX E) Disorders: Yes (KIDNEY STONES) HTN: Yes Hypercholesterolemia: Yes Liver Disease: Yes (stress inc) Thyroid Disease: Yes - Surgical History Cholecystectomy: Yes Orthopedic Surgery: Yes (LEFT hip replacement 2009; KNEE SURGERY) - Immunization History Immunization Up to Date: Yes - Psycho-Social/Smoking History Smoking Status: Yes Smoking History: Never smoked Have you smoked in the past 12 months: No Number of Cigarettes Smoked Daily: 10 If you are a former smoker, when did you quit?: 2017 'Breaking Loose' booklet given: 07/12/16 - Substance Abuse Hx (Audit-C & DAST Scrn) How often the patient has a drink containing alcohol: Never Score: In Men: 4 or > Positive; In Women: 3 or > Positive: 0 Screen Result (Pos requires Nsg. Audit-10AR): Negative In the last yr the pt used illegal drug/Rx for NonMed reason: No Score: Yes response is considered Positive: 0 Screen Result (Positive result requires Nsg. DAST-10): Negative <Rickey Charlton - Last Filed: 08/22/20 04:07> - Medical History Allergies/Adverse Reactions: Allergies Allergy/AdvReac Type Severity Reaction Status Date / Time No Known Allergies Allergy Verified 08/22/20 00:50 Home Medications: Ambulatory Orders Ascorbic Acid [Vitamin C] 500 mg PO DAILY 07/23/18 Aspirin 81 mg PO DAILY 07/23/18 Atorvastatin Ca [Lipitor] 40 mg PO HS 07/23/18 Calcium Carbonate/Vitamin D3 [Oyster Shell 500-Vit D3 200 Tb] 1 each PO DAILY 07/23/18 Diltiazem Cd [Cardizem Cd -] 120 mg PO DAILY 07/23/18 Docusate Sodium [Colace] 100 mg PO HS 07/23/18 Donepezil HCl 5 mg PO DAILY 07/23/18 Ipratropium/Albuterol Sulfate [Iprat-Albut 0.5-3(2.5) mg/3 ml] 3 ml IH QID 07/23/18 Mirabegron [Myrbetriq] 50 mg PO DAILY 07/23/18 Paroxetine HCl 40 mg PO HS 07/23/18 Potassium Chloride 20 meq PO BID 07/23/18 Sitagliptin Phosphate [Januvia] 25 mg PO DAILY 07/23/18 Spironolactone [Aldactone] 25 mg PO BID 07/23/18 Cholecalciferol (Vitamin D3) [Vitamin D3 -] 1,000 unit PO DAILY 08/11/20 Cran/Vitc/Mannose/Fos/Bromeln [Uti-Stat Liquid] 3,875 mg PO BID 08/11/20 Famotidine [Pepcid AC] 20 mg PO DAILY 08/11/20 Fexofenadine/Pseudoephedrine [Yana-D 12 Hour Tablet] 1 each PO PRN PRN 08/11/20 Lactobacillus Acidophilus [Bacid -] 1 each PO DAILY 08/11/20 Magnesium Oxide 400 mg PO BID 08/11/20 Oxybutynin Chloride [Oxybutynin Chloride ER] 15 mg PO DAILY 08/11/20 *Physical Exam - Vital Signs Last Vital Signs Temp Pulse Resp BP Pulse Ox 97.2 F L 70 19 130/62 96 08/22/20 00:43 08/22/20 00:43 08/22/20 00:43 08/22/20 00:43 08/22/20 00:43 <Aura Nunez - Last Filed: 08/22/20 02:18> - Vital Signs Last Vital Signs Temp Pulse Resp BP Pulse Ox 97.2 F L 70 19 130/62 96 08/22/20 00:43 08/22/20 00:43 08/22/20 00:43 08/22/20 00:43 08/22/20 00:43 - Physical Exam General Appearance: Yes: Nourished, Appropriately Dressed HEENT: positive: EOMI, TRUE, Normal ENT Inspection, Normal Voice, Symmetrical, TMs Normal, Pharynx Normal, Other (3-4 cm hematoma over left forehead with some bruising. ) Neck: positive: Trachea midline, Normal Thyroid Respiratory/Chest: positive: Lungs Clear, Normal Breath Sounds Cardiovascular: positive: Regular Rhythm, Regular Rate, S1, S2 Gastrointestinal/Abdominal: positive: Normal Bowel Sounds, Flat, Soft Extremity: positive: Other (bruising over digits in left and right hands, bruising at knees bilaterally) Neurologic: positive: account installer II-XII NML intact, Fully Oriented, Alert, Normal Mood/Affect, Normal Response, Motor Strength 5/5 <Rickey Charlton - Last Filed: 08/22/20 04:07> Medical Decision Making - Medical Decision Making 79 YOF presents for fall at nursing facility - vitals wnl - exam reveals bruising at left and right hands, left and right knees, and hematoma over left forehead - will do CT head, neck, CXR, radiographs of knees and hips/pelvis reassess: - imaging negative for acute changes - will dc patient back to [facility] <Rickey Charlton - Last Filed: 08/22/20 04:07> Discharge <Aura Nunez - Last Filed: 08/22/20 02:18> - Discharge Information Problems reviewed: Yes - Admission No <Rickey Charlton - Last Filed: 08/22/20 04:07> - Discharge Information Clinical Impression/Diagnosis: Fall Condition: Fair Disposition: [facility]AC[facility] - Follow up/Referral Referrals: Simon Pandya MD [Primary Care Provider] - - Patient Discharge Instructions Patient Printed Discharge Instructions: How to Prevent Falls Additional Instructions: You were seen in the ER for a recent fall. You received imaging of your head, neck, knees, and hips/pelvis. Your imagining results showed no acute changes/ fractures. You were considered medically stable and safe to return home. Please follow up with your primary care provider regarding your visit to the ER. Please return to the ER if you experience any of the following: Persistent nausea or vomiting. Increased confusion, drowsiness or changed in your level consciousness. Increased dizziness trouble walking or staggering. Seizures or convulsions, or weakness in an arm or leg. Worsening headache. Clear or blood tinged drainage from your ears or nose. Double vision or difficulty with your eyesight. - Post Discharge Activity
--- NOTE | 2020-08-22 02:20 | PDOC ---
Attending Attestation - Resident Resident Name: Rickey Charlton - ED Attending Attestation I have performed the following: I have examined & evaluated the patient, The case was reviewed & discussed with the resident, I agree w/resident's findings & plan - HPI HPI: 08/22/20 04:36 1 YOF h/o CVA, diabetes, htn presents from [facility] for fall. Patient reports she was walking in her room, went to the closet, closed the door and turned and fell suddenly and struck her forehead on a vanity, she also hit her Right knee - now bruised, both hands, she has bruise on the left ring finger and hips. She denies dizziness and lightheaded prior to falling. She denies losing consciousness. She otherwise denies CP, SOB, N/V/D, fever or chills. - Physicial Exam PE: 08/22/20 04:36 Agree with resident exam 08/22/20 04:58 A+Ox3 Pt is thin she has heart RRR and lungs CTA B abd soft NT ND no flank pain no C/C/E of legs. She has bruises on her right knee and left clawhand 4th and 5th fingers Pt has scrapes and abrasions on her forearms. - Medical Decision Making 08/22/20 03:27 Patient Name: YOGI BLAIR THIS IS A PRELIMINARY REPORT DATE OF SERVICE: 2020-08-22 01:52:02 IMAGES: 288 EXAM: HEAD CT WITHOUT CONTRAST HISTORY: Patient fell. Stroke protocol. COMPARISON: July 12, 2016 FINDINGS: No hemorrhage. No mass. The clinically suspected infarct is not detectable on CT at this time. Please note that early infarcts may not be detectable on CT. MRI is more sensitive. Osseous structures are intact. 08/22/20 04:50 YOGI CLEMONSSAMIRA Additional notes: There is heterogeneous thyroid with nodules noted. Right lobe enlarged. Note also made of a 4.7 mm right apical lung nodule. Recommend follow-up according to established criteria to rule out neoplasm. 08/22/2020 03:50 CHAD Calderon Please call Imaging Nursing Attendant [phone] ([phone]) with questions. Lloyd Ball MD Comments: Lloyd Ball MD wrote on Aug 22, 2020 at 03:45 AM: FINDINGS: Degenerative changes. Negative for cervical spine fracture or malalignment. 08/22/20 04:59 Stable for d/c home Discharge - Discharge Information Problems reviewed: Yes Clinical Impression/Diagnosis: Fall, Knee contusion Condition: Fair Disposition: [facility] - Follow up/Referral Referrals: Simon Pandya MD [Primary Care Provider] - - Patient Discharge Instructions Patient Printed Discharge Instructions: How to Prevent Falls Additional Instructions: You were seen in the ER for a recent fall. You received imaging of your head, neck, knees, and hips/pelvis. Your imagining results showed no acute changes/ fractures. You were considered medically stable and safe to return home. Please follow up with your primary care provider regarding your visit to the ER. Please return to the ER if you experience any of the following: Persistent nausea or vomiting. Increased confusion, drowsiness or changed in your level consciousness. Increased dizziness trouble walking or staggering. Seizures or convulsions, or weakness in an arm or leg. Worsening headache. Clear or blood tinged drainage from your ears or nose. Double vision or difficulty with your eyesight. - Post Discharge Activity
--- NOTE | 2020-08-22 11:47 | EKG ---
Test Reason : Blood Pressure : / mmHG Vent. Rate : 067 BPM Atrial Rate : 067 BPM P-R Int : 188 ms QRS Dur : 102 ms QT Int : 466 ms P-R-T Axes : 064 031 068 degrees QTc Int : 492 ms NORMAL SINUS RHYTHM LOW VOLTAGE QRS PROLONGED QT ABNORMAL ECG WHEN COMPARED WITH ECG OF 23-JUL-2018 17:49, NO SIGNIFICANT CHANGE WAS FOUND Confirmed by ZA PARKER MD ([id number]) on 08/22/2020 11:47:09 AM Referred By: Confirmed By:ZA PARKER MD
== END 2020-08-22 05:11 ==
LOC: JER 00:30
DX: S60.221A Contusion of right hand, initial encounter (principal); S80.01XA Contusion of right knee, initial encounter; S60.222A Contusion of left hand, initial encounter; S80.02XA Contusion of left knee, initial encounter
CPT/HCPCS: 70450-TC; 71045-TC-FY; 72125-TC; 73523-TC-FY; 73562-TC-LT-FY; 73562-TC-RT-FY; 93005; 93010; 99284-25

== ENCOUNTER 2023-01-29 00:55 | Inpatient (IN) | payer OTHER, BC ==
[2023-01-29] MEDS ORDERED: DEXTROSE 50%-WATER 25 GM/50 ML DISP.SYRIN ONE (00:59)
[2023-01-29] MEDS: SODIUM CHLORIDE 2,041 ML IV ONE ×2 (01:00→01:09)
[2023-01-29] MEDS ORDERED: DEXTROSE 50%-WATER - 25 GM/50 ML VIAL IVPUSH ONE (01:13)
[2023-01-29 01:16] LABS: HEMATOCRIT 30.6 % (32.4-45.2); HEMOGLOBIN 9.3 GM/dL (10.7-15.3); MCH 26.2 pg (25.7-33.7); MCHC 30.2 g/dl (32.0-36.0); MEAN CELL VOLUME 86.5 fl (80-96); MEAN PLT VOLUME 9.5 fl (7.5-11.1); PLATELET COUNT 182 10^3/uL (134-434); RBC 3.54 M/mm3 (3.60-5.2); RDW 16.8 % (11.6-15.6); WHITE BLOOD COUNT 6.9 K/mm3 (4.0-10.0)
[2023-01-29] MEDS ORDERED: methylPREDNISolone NA SUCC 125 MG/2 ML VIAL IVPUSH ONE (01:16)
[2023-01-29] MEDS ORDERED: VANCOMYCIN 1 GM in D5W (PRE-DOCKED) 1,000 MG/250 ML (RESTRICTED TO ID ONLY IVPB ONE (01:16)
[2023-01-29] MEDS ORDERED: PIPERACILLIN/TAZOB 4.5 GM 4.5 GM in DEXTROSE 5%-WATER 100 ML IVPB ONE (01:16)
[2023-01-29] MEDS ORDERED: ALBUTEROL SO4 2.5/IPRATROPIUM 0.5 INH SOL 3 ML VIAL.NEB. NEB ONE (01:17)
[2023-01-29] MEDS ORDERED: VANCOMYCIN/WATER FOR INJ (PEG) 1,000 MG/200 ML BAG IVPB ONE (01:19)
[2023-01-29] MEDS ORDERED: PIPERACILLIN/TAZOB 4.5 GM 4.5 GM/100 ML BAG IVPB ONE (01:19)
[2023-01-29] MEDS ORDERED: methylPREDNISolone NA SUCC 125 MG/2 ML VIAL ONE (01:20)
[2023-01-29 01:34] LABS: ARTERIAL BLD GAS O2 SATURATION 99.5 % (95-98); ARTERIAL BLOOD GAS BASE EXCESS -3.9 mmol/L (-2-2); ARTERIAL BLOOD GAS PO2 292.4 mmHg (80-100)
[2023-01-29 01:36] LABS: ALLENS TEST POSITIVE; VENT MODE INTUBATE; VENT RATE 400
[2023-01-29 01:37] LABS: ARTERIAL BLOOD GAS pH 7.132 (7.350-7.450)
[2023-01-29 01:44] LABS: CALCIUM 8.1 mg/dL (8.5-10.1)
[2023-01-29 01:47] LABS: INR 1.21 (0.83-1.09)
[2023-01-29 01:48] LABS: CREATININE 1.2 mg/dL (0.55-1.3)
[2023-01-29 01:49] LABS: ACTIVATED PTT 21.6 SECONDS (25.2-36.5); TOT PROT 5.1 g/dl (6.4-8.2)
[2023-01-29 02:03] LABS: LACTIC ACID 9.6 mmol/L (0.4-2.0)
[2023-01-29] MEDS ORDERED: LORazepam 2 MG/ML SDV VIAL IVPUSH ONE (02:13)
[2023-01-29] MEDS ORDERED: NOREPINEPHRINE BITARTRATE/D5W 8 MG/250 ML BAG IVPB ONE (02:29)
[2023-01-29] MEDS: NOREPINEPHRINE 0.9 % NACL 8 MG/250 ML BAG IVPB SCH (02:53)
[2023-01-29 05:13] LABS: ANISOCYTOSIS 3+; MACROCYTOSIS 0; OVALOCYTE 1+
[2023-01-29] MEDS ORDERED: ALBUTEROL SO4 0.083% IH SOL 2.5 MG/3 ML VIAL.NEB. NEB PRN (05:19)
[2023-01-29] MEDS ORDERED: SODIUM CHLORIDE 0.9% 500 ML INFUS.BAG IV ONE (05:35)
[2023-01-29 06:18] LABS: MAGNESIUM 1.3 mg/dL (1.8-2.4)
[2023-01-29 06:21] LABS: PHOSPHOROUS 3.2 mg/dL (2.5-4.9)
[2023-01-29 06:31] LABS: LACTIC ACID 6.5 mmol/L (0.4-2.0)
[2023-01-29] MEDS ORDERED: MAGNESIUM SULF 50% (8.12 MEQ/2 ML-1 GM VIAL) IVPB ONE (07:09)
[2023-01-29 09:04] LABS: ARTERIAL BLD GAS O2 SATURATION 95.7 % (95-98); ARTERIAL BLOOD GAS BASE EXCESS 1.8 mmol/L (-2-2); ARTERIAL BLOOD GAS PO2 88.1 mmHg (80-100); ARTERIAL BLOOD GAS pH 7.305 (7.350-7.450)
[2023-01-29 09:05] LABS: ALLENS TEST POSITIVE
[2023-01-29 09:06] LABS: VENT MODE AC; VENT RATE 20
[2023-01-29] MEDS: MUPIROCIN 2% TOPICAL OINTMENT FOR DECOLONIZATION NS SCH ×2 (09:06→21:03)
[2023-01-29] MEDS: PANTOPRAZOLE SODIUM 40 MG VIAL IVPUSH SCH (09:06)
[2023-01-29] MEDS ORDERED: PIPERACILLIN/TAZOB 3.375 GM 3.375 GM in DEXTROSE 5%-WATER - 50 ML IVPB SCH (10:00)
[2023-01-29] MEDS: SODIUM CHLORIDE 1,000 ML IV SCH (10:22)
[2023-01-29 11:47] LABS: CHLORIDE 104 mmol/L (98-107); SODIUM 142 mmol/L (136-145)
[2023-01-29 11:49] LABS: CALCIUM 7.8 mg/dL (8.5-10.1)
[2023-01-29 11:50] LABS: CO2 33 mmol/L (21-32); GLUCOSE,RANDOM 227 mg/dL (74-106)
[2023-01-29 11:53] LABS: CREATININE 1.2 mg/dL (0.55-1.3)
[2023-01-29 11:54] LABS: BILIRUBIN,TOTAL 1.6 mg/dL (0.2-1)
[2023-01-29 12:15] LABS: EPI CELLS >36 /uL (0-25.1); HYALINE CASTS 2 /uL (0-3.1); PH,URINE 5.5 (5.0-8.0); URINE APPEARANCE CLOUDY; URINE BACTERIA 114 /uL (0-1359); URINE BILIRUBIN NEGATIVE (NEGATIVE); URINE COLOR YELLOW; URINE GLUCOSE (UA) TRACE (NEGATIVE); URINE KETONE NEGATIVE (NEGATIVE); URINE LEUK ESTERASE NEGATIVE (NEGATIVE); URINE NITRITE NEGATIVE (NEGATIVE); URINE PROTEIN 2+ (NEGATIVE); URINE RBC 15 /uL (0-23.9); URINE UROBILINOGEN 0.2 mg/dL (0.2-1.0)
[2023-01-29 12:20] LABS: ALK PHOS 269 U/L (45-117); ANION GAP 6 MMOL/L (8-16); SGOT/AST 2860 U/L (15-37); SGPT/ALT 1461 U/L (13-61)
[2023-01-29] MEDS ORDERED: KCL 10 MEQ IVPB 10 MEQ/100 ML INFUS.BAG IVPB SCH (12:45)
[2023-01-29] MEDS: KCL 20 MEQ PREMIX BAG 20 MEQ in KCL 20 MEQ PREMIX BAG 100 ML IVPB SCH ×3 (14:24→18:39)
[2023-01-29] MEDS: PIPERACILLIN/TAZOB 3.375 GM 3.375 GM in DEXTROSE 5%-WATER - 50 ML IVPB SCH (17:11)
[2023-01-29 17:46] LABS: BLOOD UREA NITROGEN 44.3 mg/dL (7-18); CALCIUM 8.2 mg/dL (8.5-10.1); MAGNESIUM 2.7 mg/dL (1.8-2.4)
[2023-01-29 17:50] LABS: CREATININE 1.4 mg/dL (0.55-1.3)
[2023-01-29] MEDS: CHLORHEXIDINE GLUCONATE 4% CLEANSER FOR DECOLONIZATION TP SCH (21:03)
[2023-01-29] MEDS: FENTANYL CITRATE/PF 50 MCG/ML VIAL IVPUSH PRN ×2 (21:58→23:55)
[2023-01-29 23:11] LABS: CALCIUM 8.5 mg/dL (8.5-10.1)
[2023-01-29 23:12] LABS: BLOOD UREA NITROGEN 47.1 mg/dL (7-18)
[2023-01-29 23:15] LABS: CREATININE 1.7 mg/dL (0.55-1.3)
[2023-01-30] MEDS: PIPERACILLIN/TAZOB 3.375 GM 3.375 GM in DEXTROSE 5%-WATER - 50 ML IVPB SCH ×3 (02:07→18:05)
[2023-01-30] MEDS: NOREPINEPHRINE 0.9 % NACL 8 MG/250 ML BAG IVPB SCH (04:09)
[2023-01-30] MEDS: SODIUM CHLORIDE 1,000 ML IV SCH (05:47)
[2023-01-30 07:39] LABS: HEMATOCRIT 29.2 % (32.4-45.2); HEMOGLOBIN 9.3 GM/dL (10.7-15.3); INR 1.58 (0.83-1.09); MCH 26.4 pg (25.7-33.7); MCHC 31.8 g/dl (32.0-36.0); MEAN CELL VOLUME 82.9 fl (80-96); MEAN PLT VOLUME 9.2 fl (7.5-11.1); PLATELET COUNT 166 10^3/uL (134-434); PROTHROMBIN TIME (PATIENT) 18.2 SEC (9.7-13.0); RBC 3.52 M/mm3 (3.60-5.2); RDW 16.8 % (11.6-15.6); WHITE BLOOD COUNT 20.7 K/mm3 (4.0-10.0)
[2023-01-30 07:53] LABS: ALBUMIN 2.2 g/dl (3.4-5.0); BLOOD UREA NITROGEN 53.4 mg/dL (7-18); CALCIUM 8.3 mg/dL (8.5-10.1)
[2023-01-30 07:54] LABS: MAGNESIUM 2.1 mg/dL (1.8-2.4)
[2023-01-30 07:56] LABS: CREATININE 1.8 mg/dL (0.55-1.3); TOT PROT 5.6 g/dl (6.4-8.2)
[2023-01-30 07:57] LABS: BILIRUBIN,TOTAL 1.4 mg/dL (0.2-1)
[2023-01-30 09:24] LABS: ANISOCYTOSIS 0; MACROCYTOSIS 0
[2023-01-30] MEDS: ENOXAPARIN NA (PORCINE) 30 MG/0.3 ML DISP.SYRIN SQ SCH (09:49)
[2023-01-30] MEDS: MUPIROCIN 2% TOPICAL OINTMENT FOR DECOLONIZATION NS SCH ×2 (09:49→21:06)
[2023-01-30] MEDS: PANTOPRAZOLE SODIUM 40 MG VIAL IVPUSH SCH (09:49)
[2023-01-30] MEDS: CHLORHEXIDINE GLUCONATE 4% CLEANSER FOR DECOLONIZATION TP SCH (21:06)
[2023-01-30] MEDS ORDERED: LACTATED RINGERS SOLUTION 1000 ML INFUS.BAG IV ONE (22:20)
[2023-01-30] MEDS ORDERED: FENTANYL CITRATE/PF 50 MCG/ML VIAL IVPUSH ONE (23:20)
[2023-01-31] MEDS ORDERED: LIDOCAINE HCL 2% (50ML VIAL) SQ ONE (00:10)
[2023-01-31] MEDS ORDERED: LIDOCAINE HCL 2% 100 MG/5 ML DISP.SYRIN ONE (00:13)
[2023-01-31] MEDS: NOREPINEPHRINE 0.9 % NACL 8 MG/250 ML BAG IVPB SCH (01:12)
[2023-01-31] MEDS ORDERED: FENTANYL CITRATE/PF 50 MCG/ML VIAL IVPUSH ONE (01:18)
[2023-01-31] MEDS: PIPERACILLIN/TAZOB 3.375 GM 3.375 GM in DEXTROSE 5%-WATER - 50 ML IVPB SCH ×3 (01:20→17:05)
[2023-01-31] MEDS ORDERED: LACTATED RINGERS SOLUTION 1,000 ML/1,000 ML INFUS.BAG IV SCH ×2 (01:30→15:45)
[2023-01-31 03:47] LABS: CHLORIDE 110 mmol/L (98-107); SODIUM 145 mmol/L (136-145)
[2023-01-31 03:49] LABS: ALBUMIN 1.9 g/dl (3.4-5.0); ANION GAP 8 MMOL/L (8-16); CALCIUM 8.3 mg/dL (8.5-10.1); CO2 27 mmol/L (21-32); GLUCOSE,RANDOM 129 mg/dL (74-106); MAGNESIUM 2.3 mg/dL (1.8-2.4)
[2023-01-31 03:53] LABS: CREATININE 2.5 mg/dL (0.55-1.3); PHOSPHOROUS 4.1 mg/dL (2.5-4.9); SGOT/AST 465 U/L (15-37)
[2023-01-31 03:55] LABS: BILIRUBIN,TOTAL 0.8 mg/dL (0.2-1); TOT PROT 5.1 g/dl (6.4-8.2)
[2023-01-31 04:37] LABS: ALK PHOS 171 U/L (45-117); BLOOD UREA NITROGEN 71.8 mg/dL (7-18); SGPT/ALT 969 U/L (13-61)
[2023-01-31 06:49] LABS: HEMATOCRIT 23.5 % (32.4-45.2); HEMOGLOBIN 7.5 GM/dL (10.7-15.3); MCH 26.1 pg (25.7-33.7); MEAN CELL VOLUME 81.6 fl (80-96); MEAN PLT VOLUME 8.7 fl (7.5-11.1); PLATELET COUNT 146 10^3/uL (134-434); RBC 2.88 M/mm3 (3.60-5.2); RDW 17.1 % (11.6-15.6); WHITE BLOOD COUNT 19.1 K/mm3 (4.0-10.0)
[2023-01-31 07:40] LABS: CHLORIDE 107 mmol/L (98-107); SODIUM 143 mmol/L (136-145)
[2023-01-31 07:41] LABS: CALCIUM 8.1 mg/dL (8.5-10.1)
[2023-01-31 07:42] LABS: ANION GAP 8 MMOL/L (8-16); BLOOD UREA NITROGEN 75.2 mg/dL (7-18); CO2 28 mmol/L (21-32); GLUCOSE,RANDOM 111 mg/dL (74-106); MAGNESIUM 2.5 mg/dL (1.8-2.4)
[2023-01-31 07:45] LABS: CREATININE 2.6 mg/dL (0.55-1.3)
[2023-01-31] MEDS: PANTOPRAZOLE SODIUM 40 MG VIAL IVPUSH SCH (09:18)
[2023-01-31] MEDS: MUPIROCIN 2% TOPICAL OINTMENT FOR DECOLONIZATION NS SCH ×2 (09:18→21:12)
[2023-01-31] MEDS: ENOXAPARIN NA (PORCINE) 30 MG/0.3 ML DISP.SYRIN SQ SCH (11:31)
[2023-01-31] MEDS ORDERED: levETIRAcetam 500 MG/5 ML INJECTION VIAL IVPB ONE (16:46)
[2023-01-31] MEDS: CHLORHEXIDINE GLUCONATE 4% CLEANSER FOR DECOLONIZATION TP SCH (21:14)
[2023-01-31 22:48] LABS: HEMATOCRIT 29.6 % (32.4-45.2); HEMOGLOBIN 9.4 GM/dL (10.7-15.3); MCH 25.9 pg (25.7-33.7); MCHC 31.7 g/dl (32.0-36.0); MEAN CELL VOLUME 81.8 fl (80-96); PLATELET COUNT 138 10^3/uL (134-434); RBC 3.62 M/mm3 (3.60-5.2); RDW 16.7 % (11.6-15.6); WHITE BLOOD COUNT 22.4 K/mm3 (4.0-10.0)
[2023-02-01] MEDS: PIPERACILLIN/TAZOB 3.375 GM 3.375 GM in DEXTROSE 5%-WATER - 50 ML IVPB SCH ×3 (01:00→18:10)
[2023-02-01] MEDS: NOREPINEPHRINE 0.9 % NACL 8 MG/250 ML BAG IVPB SCH (01:01)
[2023-02-01] MEDS: levETIRAcetam 500 MG/5 ML INJECTION VIAL IVPB SCH ×2 (04:59→18:09)
[2023-02-01] MEDS ORDERED: METOCLOPRAMIDE HCL INJECTION 10 MG/2 ML VIAL IVPUSH ONE (06:15)
[2023-02-01 07:05] LABS: CALCIUM 8.3 mg/dL (8.5-10.1)
[2023-02-01 07:06] LABS: BLOOD UREA NITROGEN 87.2 mg/dL (7-18); MAGNESIUM 2.4 mg/dL (1.8-2.4)
[2023-02-01 07:09] LABS: CREATININE 3.3 mg/dL (0.55-1.3); PHOSPHOROUS 3.4 mg/dL (2.5-4.9)
[2023-02-01 07:10] LABS: BILIRUBIN,TOTAL 0.7 mg/dL (0.2-1); TOT PROT 5.1 g/dl (6.4-8.2)
[2023-02-01 07:30] LABS: HEMATOCRIT 29.3 % (32.4-45.2); HEMOGLOBIN 9.7 GM/dL (10.7-15.3); MCHC 33.2 g/dl (32.0-36.0); MEAN CELL VOLUME 81.1 fl (80-96); MEAN PLT VOLUME 9.4 fl (7.5-11.1); PLATELET COUNT 141 10^3/uL (134-434); RBC 3.61 M/mm3 (3.60-5.2); RDW 16.6 % (11.6-15.6); WHITE BLOOD COUNT 23.4 K/mm3 (4.0-10.0)
[2023-02-01] MEDS ORDERED: FENTANYL CITRATE/PF 50 MCG/ML VIAL IVPUSH PRN (08:05)
[2023-02-01] MEDS: ENOXAPARIN NA (PORCINE) 30 MG/0.3 ML DISP.SYRIN SQ SCH (09:06)
[2023-02-01] MEDS: PANTOPRAZOLE SODIUM 40 MG VIAL IVPUSH SCH (09:06)
[2023-02-01] MEDS: MUPIROCIN 2% TOPICAL OINTMENT FOR DECOLONIZATION NS SCH ×2 (09:07→22:00)
[2023-02-01] MEDS: CHLORHEXIDINE GLUCONATE 4% CLEANSER FOR DECOLONIZATION TP SCH (22:00)
[2023-02-02] MEDS: PIPERACILLIN/TAZOB 3.375 GM 3.375 GM in DEXTROSE 5%-WATER - 50 ML IVPB SCH ×3 (02:00→17:47)
[2023-02-02] MEDS: NOREPINEPHRINE 0.9 % NACL 8 MG/250 ML BAG IVPB SCH (04:41)
[2023-02-02] MEDS: levETIRAcetam 500 MG/5 ML INJECTION VIAL IVPB SCH ×2 (05:31→17:44)
[2023-02-02 08:01] LABS: HEMOGLOBIN 8.6 GM/dL (10.7-15.3); MCH 27.2 pg (25.7-33.7); MCHC 33.2 g/dl (32.0-36.0); MEAN CELL VOLUME 82.1 fl (80-96); MEAN PLT VOLUME 9.4 fl (7.5-11.1); PLATELET COUNT 100 10^3/uL (134-434); RBC 3.17 M/mm3 (3.60-5.2); RDW 16.6 % (11.6-15.6); WHITE BLOOD COUNT 13.6 K/mm3 (4.0-10.0)
[2023-02-02 08:08] LABS: CHLORIDE 110 mmol/L (98-107); SODIUM 145 mmol/L (136-145)
[2023-02-02 08:10] LABS: ALBUMIN 1.7 g/dl (3.4-5.0); ANION GAP 7 MMOL/L (8-16); CALCIUM 7.9 mg/dL (8.5-10.1); CO2 28 mmol/L (21-32); GLUCOSE,RANDOM 114 mg/dL (74-106); MAGNESIUM 2.4 mg/dL (1.8-2.4)
[2023-02-02 08:14] LABS: PHOSPHOROUS 3.3 mg/dL (2.5-4.9); SGOT/AST 29 U/L (15-37); SGPT/ALT 317 U/L (13-61)
[2023-02-02 08:15] LABS: BILIRUBIN,TOTAL 0.5 mg/dL (0.2-1); TOT PROT 4.7 g/dl (6.4-8.2)
[2023-02-02 08:18] LABS: ALK PHOS 106 U/L (45-117); BLOOD UREA NITROGEN 108.2 mg/dL (7-18)
[2023-02-02] MEDS: MUPIROCIN 2% TOPICAL OINTMENT FOR DECOLONIZATION NS SCH ×2 (09:51→21:36)
[2023-02-02] MEDS: ENOXAPARIN NA (PORCINE) 30 MG/0.3 ML DISP.SYRIN SQ SCH (09:51)
[2023-02-02] MEDS: PANTOPRAZOLE SODIUM 40 MG VIAL IVPUSH SCH (09:52)
[2023-02-02] MEDS ORDERED: LACTATED RINGERS SOLUTION 1000 ML INFUS.BAG IV ONE (12:30)
[2023-02-02 14:58] VITALS: BMI 22.2
[2023-02-02] MEDS: LACTATED RINGERS SOLUTION 1,000 ML/1,000 ML INFUS.BAG IV SCH (16:00)
[2023-02-02] MEDS: CHLORHEXIDINE GLUCONATE 4% CLEANSER FOR DECOLONIZATION TP SCH (21:40)
[2023-02-03] MEDS: PIPERACILLIN/TAZOB 3.375 GM 3.375 GM in DEXTROSE 5%-WATER - 50 ML IVPB SCH ×3 (01:07→17:48)
[2023-02-03] MEDS: NOREPINEPHRINE 0.9 % NACL 8 MG/250 ML BAG IVPB SCH (01:07)
[2023-02-03] MEDS: levETIRAcetam 500 MG/5 ML INJECTION VIAL IVPB SCH ×2 (04:14→16:46)
[2023-02-03 08:42] LABS: HEMOGLOBIN 8.3 GM/dL (10.7-15.3); MCH 27.2 pg (25.7-33.7); MCHC 33.2 g/dl (32.0-36.0); MEAN CELL VOLUME 81.9 fl (80-96); MEAN PLT VOLUME 9.9 fl (7.5-11.1); PLATELET COUNT 88 10^3/uL (134-434); RBC 3.05 M/mm3 (3.60-5.2); WHITE BLOOD COUNT 11.2 K/mm3 (4.0-10.0)
[2023-02-03 08:52] LABS: CALCIUM 7.8 mg/dL (8.5-10.1)
[2023-02-03 08:54] LABS: BLOOD UREA NITROGEN 98.3 mg/dL (7-18); MAGNESIUM 2.3 mg/dL (1.8-2.4)
[2023-02-03 08:56] LABS: PHOSPHOROUS 3.8 mg/dL (2.5-4.9)
[2023-02-03] MEDS: PANTOPRAZOLE SODIUM 40 MG VIAL IVPUSH SCH (09:28)
[2023-02-03] MEDS: ENOXAPARIN NA (PORCINE) 30 MG/0.3 ML DISP.SYRIN SQ SCH (09:28)
[2023-02-03] MEDS: LACTATED RINGERS SOLUTION 1,000 ML/1,000 ML INFUS.BAG IV SCH (13:56)
[2023-02-03] MEDS: DEXMEDETOMIDINE PREMIX 400 MCG/100 ML BAG IVPB SCH (16:48)
[2023-02-03] MEDS: CHLORHEXIDINE GLUCONATE 4% CLEANSER FOR DECOLONIZATION TP SCH (21:50)
[2023-02-04] MEDS: PIPERACILLIN/TAZOB 3.375 GM 3.375 GM in DEXTROSE 5%-WATER - 50 ML IVPB SCH ×3 (02:19→17:01)
[2023-02-04] MEDS: DEXMEDETOMIDINE PREMIX 400 MCG/100 ML BAG IVPB SCH (03:48)
[2023-02-04] MEDS: levETIRAcetam 500 MG/5 ML INJECTION VIAL IVPB SCH ×2 (04:40→16:13)
[2023-02-04 06:38] LABS: ARTERIAL BLD GAS O2 SATURATION 98.1 % (95-98); ARTERIAL BLOOD GAS BASE EXCESS -2.5 mmol/L (-2-2); ARTERIAL BLOOD GAS PO2 123.4 mmHg (80-100); ARTERIAL BLOOD GAS pH 7.302 (7.350-7.450)
[2023-02-04 06:55] LABS: VENT MODE V-A/C; VENT RATE 12
[2023-02-04 07:47] LABS: HEMATOCRIT 24.2 % (32.4-45.2); MCH 26.9 pg (25.7-33.7); MCHC 32.9 g/dl (32.0-36.0); MEAN CELL VOLUME 81.8 fl (80-96); MEAN PLT VOLUME 9.8 fl (7.5-11.1); PLATELET COUNT 82 10^3/uL (134-434); RBC 2.96 M/mm3 (3.60-5.2); RDW 16.7 % (11.6-15.6)
[2023-02-04 08:03] LABS: CALCIUM 7.6 mg/dL (8.5-10.1)
[2023-02-04 08:04] LABS: BLOOD UREA NITROGEN 97.9 mg/dL (7-18); MAGNESIUM 2.2 mg/dL (1.8-2.4)
[2023-02-04 08:07] LABS: CREATININE 4.3 mg/dL (0.55-1.3)
[2023-02-04] MEDS: PANTOPRAZOLE SODIUM 40 MG VIAL IVPUSH SCH (09:12)
[2023-02-04] MEDS: ENOXAPARIN NA (PORCINE) 30 MG/0.3 ML DISP.SYRIN SQ SCH (09:14)
[2023-02-04] MEDS ORDERED: FUROSEMIDE 100 MG/10 ML INJECTABLE VIAL IVPUSH ONE (10:49)
[2023-02-04] MEDS: SODIUM CHLORIDE IVPB SCH (18:35)
[2023-02-04] MEDS: DEXMEDETOMIDINE HCL IVPB SCH (18:35)
[2023-02-04] MEDS: CHLORHEXIDINE GLUCONATE 4% CLEANSER FOR DECOLONIZATION TP SCH (21:46)
[2023-02-05] MEDS: PIPERACILLIN/TAZOB 3.375 GM 3.375 GM in DEXTROSE 5%-WATER - 50 ML IVPB SCH ×3 (02:20→18:19)
[2023-02-05] MEDS: levETIRAcetam 500 MG/5 ML INJECTION VIAL IVPB SCH ×2 (04:23→16:36)
[2023-02-05] MEDS: DEXMEDETOMIDINE HCL IVPB SCH ×2 (04:35→17:03)
[2023-02-05] MEDS: SODIUM CHLORIDE IVPB SCH ×2 (04:35→17:03)
[2023-02-05 07:20] LABS: HEMATOCRIT 23.6 % (32.4-45.2); HEMOGLOBIN 7.8 GM/dL (10.7-15.3); MCH 26.9 pg (25.7-33.7); MCHC 33.1 g/dl (32.0-36.0); MEAN CELL VOLUME 81.1 fl (80-96); MEAN PLT VOLUME 9.8 fl (7.5-11.1); PLATELET COUNT 113 10^3/uL (134-434); RBC 2.91 M/mm3 (3.60-5.2); RDW 16.7 % (11.6-15.6); WHITE BLOOD COUNT 7.8 K/mm3 (4.0-10.0)
[2023-02-05 07:41] LABS: CALCIUM 7.7 mg/dL (8.5-10.1)
[2023-02-05 07:43] LABS: BLOOD UREA NITROGEN 102.3 mg/dL (7-18); MAGNESIUM 2.2 mg/dL (1.8-2.4)
[2023-02-05 07:45] LABS: CREATININE 4.6 mg/dL (0.55-1.3); PHOSPHOROUS 4.6 mg/dL (2.5-4.9)
[2023-02-05] MEDS: PANTOPRAZOLE SODIUM 40 MG VIAL IVPUSH SCH (09:30)
[2023-02-05] MEDS: ENOXAPARIN NA (PORCINE) 30 MG/0.3 ML DISP.SYRIN SQ SCH (09:30)
[2023-02-05] MEDS ORDERED: SODIUM CHLORIDE 250 ML IV PRN (16:34)
[2023-02-05] MEDS ORDERED: MIDAZOLAM IN 0.9 % SOD.CHLORID 100 MG/100 ML PLAST..BAG IVPB SCH (16:45)
[2023-02-05] MEDS ORDERED: MIDAZOLAM IN 0.9 % SOD.CHLORID 1 MG/1 ML PLAST..BAG ONE (16:49)
[2023-02-05] MEDS ORDERED: MIDAZOLAM HCL 2 MG/2 ML SINGLE DOSE VIAL IVPUSH PRN (16:54)
[2023-02-05] MEDS: CHLORHEXIDINE GLUCONATE 4% CLEANSER FOR DECOLONIZATION TP SCH (21:28)
[2023-02-06] MEDS: PIPERACILLIN/TAZOB 3.375 GM 3.375 GM in DEXTROSE 5%-WATER - 50 ML IVPB SCH ×3 (03:31→17:40)
[2023-02-06] MEDS ORDERED: DEXMEDETOMIDINE PREMIX 400 MCG/100 ML BAG IVPB SCH (04:00)
[2023-02-06] MEDS: levETIRAcetam 500 MG/5 ML INJECTION VIAL IVPB SCH ×2 (04:04→17:40)
[2023-02-06 07:57] LABS: HEMATOCRIT 21.5 % (32.4-45.2); HEMOGLOBIN 7.3 GM/dL (10.7-15.3); MCH 27.6 pg (25.7-33.7); MCHC 34.1 g/dl (32.0-36.0); MEAN PLT VOLUME 9.7 fl (7.5-11.1); PLATELET COUNT 124 10^3/uL (134-434); RBC 2.65 M/mm3 (3.60-5.2); RDW 16.5 % (11.6-15.6); WHITE BLOOD COUNT 6.7 K/mm3 (4.0-10.0)
[2023-02-06 08:50] LABS: ALBUMIN 1.5 g/dl (3.4-5.0); CALCIUM 7.6 mg/dL (8.5-10.1)
[2023-02-06 08:51] LABS: MAGNESIUM 1.9 mg/dL (1.8-2.4)
[2023-02-06 08:53] LABS: PHOSPHOROUS 3.7 mg/dL (2.5-4.9)
[2023-02-06 08:54] LABS: CREATININE 3.6 mg/dL (0.55-1.3)
[2023-02-06 08:55] LABS: BILIRUBIN,TOTAL 0.3 mg/dL (0.2-1); TOT PROT 4.3 g/dl (6.4-8.2)
[2023-02-06 08:59] LABS: BLOOD UREA NITROGEN 68.1 mg/dL (7-18)
[2023-02-06] MEDS: PANTOPRAZOLE SODIUM 40 MG VIAL IVPUSH SCH (09:38)
[2023-02-06] MEDS: ENOXAPARIN NA (PORCINE) 30 MG/0.3 ML DISP.SYRIN SQ SCH (09:38)
[2023-02-06] MEDS ORDERED: SODIUM CHLORIDE 250 ML IV PRN ×2 (09:43→11:39)
[2023-02-06] MEDS ORDERED: ALBUMIN HUMAN 25% 12.5 GM/50 ML VIAL IVPB SCH (11:45)
[2023-02-06] MEDS ORDERED: FENTANYL CITRATE/PF 50 MCG/ML VIAL IVPUSH PRN (11:59)
[2023-02-06] MEDS ORDERED: NOREPINEPHRINE BITARTRATE 16,000 MCG in SODIUM CHLORIDE 484 ML IV SCH (12:00)
[2023-02-06] MEDS ORDERED: NOREPINEPHRINE BITARTRATE 4 MG/4 ML ML IV ONE (13:07)
[2023-02-06] MEDS ORDERED: MIDAZOLAM HCL 2 MG/2 ML SINGLE DOSE VIAL IVPUSH ONE (14:59)
[2023-02-06] MEDS: FENTANYL CITRATE/PF 50 MCG/ML VIAL IVPUSH PRN (17:40)
[2023-02-06] MEDS: CHLORHEXIDINE GLUCONATE 4% CLEANSER FOR DECOLONIZATION TP SCH (21:27)
[2023-02-07] MEDS: MIDAZOLAM HCL 2 MG/2 ML SINGLE DOSE VIAL IVPUSH PRN ×3 (00:16→10:44)
[2023-02-07] MEDS: PIPERACILLIN/TAZOB 3.375 GM 3.375 GM in DEXTROSE 5%-WATER - 50 ML IVPB SCH ×3 (01:14→17:48)
[2023-02-07] MEDS: FENTANYL CITRATE/PF 50 MCG/ML VIAL IVPUSH PRN ×2 (04:15→10:41)
[2023-02-07] MEDS: levETIRAcetam 500 MG/5 ML INJECTION VIAL IVPB SCH ×2 (04:18→17:48)
[2023-02-07] MEDS ORDERED: MIDAZOLAM HCL 2 MG/2 ML SINGLE DOSE VIAL IVPUSH ONE (04:45)
[2023-02-07 07:35] LABS: HEMATOCRIT 19.9 % (32.4-45.2); MCHC 33.1 g/dl (32.0-36.0); MEAN CELL VOLUME 81.4 fl (80-96); MEAN PLT VOLUME 10.3 fl (7.5-11.1); PLATELET COUNT 203 10^3/uL (134-434); RBC 2.44 M/mm3 (3.60-5.2); RDW 16.5 % (11.6-15.6)
[2023-02-07 07:41] LABS: HEMOGLOBIN 6.6 GM/dL (10.7-15.3)
[2023-02-07 08:09] LABS: CALCIUM 7.7 mg/dL (8.5-10.1); MAGNESIUM 1.8 mg/dL (1.8-2.4)
[2023-02-07 08:10] LABS: ALBUMIN 1.6 g/dl (3.4-5.0); BLOOD UREA NITROGEN 51.2 mg/dL (7-18)
[2023-02-07 08:12] LABS: PHOSPHOROUS 3.6 mg/dL (2.5-4.9)
[2023-02-07 08:13] LABS: CREATININE 3.1 mg/dL (0.55-1.3)
[2023-02-07 08:14] LABS: BILIRUBIN,TOTAL 0.3 mg/dL (0.2-1); TOT PROT 4.7 g/dl (6.4-8.2)
[2023-02-07] MEDS: PANTOPRAZOLE SODIUM 40 MG VIAL IVPUSH SCH (09:30)
[2023-02-07] MEDS: ENOXAPARIN NA (PORCINE) 30 MG/0.3 ML DISP.SYRIN SQ SCH (09:30)
[2023-02-07] MEDS ORDERED: FUROSEMIDE 40 MG/4 ML INJECTABLE VIAL IVPUSH ONE (11:00)
[2023-02-07] MEDS: DEXMEDETOMIDINE PREMIX 400 MCG/100 ML BAG IVPB SCH (11:11)
[2023-02-07] MEDS ORDERED: SODIUM CHLORIDE 250 ML IV PRN (16:12)
[2023-02-07 17:16] LABS: HEMATOCRIT 22.3 % (32.4-45.2); HEMOGLOBIN 7.5 GM/dL (10.7-15.3); MCH 27.3 pg (25.7-33.7); MCHC 33.7 g/dl (32.0-36.0); MEAN CELL VOLUME 80.9 fl (80-96); MEAN PLT VOLUME 9.8 fl (7.5-11.1); PLATELET COUNT 189 10^3/uL (134-434); RBC 2.75 M/mm3 (3.60-5.2); RDW 15.6 % (11.6-15.6); WHITE BLOOD COUNT 9.2 K/mm3 (4.0-10.0)
[2023-02-07] MEDS: CHLORHEXIDINE GLUCONATE 4% CLEANSER FOR DECOLONIZATION TP SCH (22:08)
[2023-02-08] MEDS: PIPERACILLIN/TAZOB 3.375 GM 3.375 GM in DEXTROSE 5%-WATER - 50 ML IVPB SCH ×3 (01:56→17:18)
[2023-02-08] MEDS: DEXMEDETOMIDINE PREMIX 400 MCG/100 ML BAG IVPB SCH (02:04)
[2023-02-08] MEDS: MIDAZOLAM HCL 2 MG/2 ML SINGLE DOSE VIAL IVPUSH PRN (04:03)
[2023-02-08] MEDS: levETIRAcetam 500 MG/5 ML INJECTION VIAL IVPB SCH ×2 (06:10→16:19)
[2023-02-08 07:14] LABS: HEMATOCRIT 24.1 % (32.4-45.2); HEMOGLOBIN 8.2 GM/dL (10.7-15.3); MCH 27.4 pg (25.7-33.7); MCHC 33.9 g/dl (32.0-36.0); MEAN CELL VOLUME 80.6 fl (80-96); MEAN PLT VOLUME 10.2 fl (7.5-11.1); PLATELET COUNT 253 10^3/uL (134-434); RBC 2.99 M/mm3 (3.60-5.2); RDW 15.9 % (11.6-15.6); WHITE BLOOD COUNT 13.2 K/mm3 (4.0-10.0)
[2023-02-08 07:32] LABS: ALBUMIN 1.8 g/dl (3.4-5.0); MAGNESIUM 1.9 mg/dL (1.8-2.4)
[2023-02-08 07:33] LABS: BLOOD UREA NITROGEN 62.4 mg/dL (7-18)
[2023-02-08 07:34] LABS: CREATININE 3.7 mg/dL (0.55-1.3)
[2023-02-08 07:35] LABS: BILIRUBIN,TOTAL 0.3 mg/dL (0.2-1); PHOSPHOROUS 3.8 mg/dL (2.5-4.9)
[2023-02-08 07:36] LABS: TOT PROT 5.2 g/dl (6.4-8.2)
[2023-02-08] MEDS ORDERED: FENTANYL CITRATE/PF 50 MCG/ML VIAL IVPUSH PRN (08:39)
[2023-02-08] MEDS: PANTOPRAZOLE SODIUM 40 MG VIAL IVPUSH SCH (09:32)
[2023-02-08] MEDS: ENOXAPARIN NA (PORCINE) 30 MG/0.3 ML DISP.SYRIN SQ SCH (09:32)
[2023-02-08] MEDS: PROPOFOL 1,000,000 MCG/100 ML VIAL IVPB SCH (13:23)
[2023-02-08] MEDS ORDERED: IRON SUCROSE INJECTION 200 MG in SODIUM CHLORIDE 90 ML IVPB ONE (15:45)
[2023-02-08] MEDS: CHLORHEXIDINE GLUCONATE 4% CLEANSER FOR DECOLONIZATION TP SCH (21:03)
[2023-02-09] MEDS: PIPERACILLIN/TAZOB 3.375 GM 3.375 GM in DEXTROSE 5%-WATER - 50 ML IVPB SCH ×3 (01:12→17:57)
[2023-02-09] MEDS: PROPOFOL 1,000,000 MCG/100 ML VIAL IVPB SCH (01:14)
[2023-02-09] MEDS: levETIRAcetam 500 MG/5 ML INJECTION VIAL IVPB SCH ×2 (05:44→17:55)
[2023-02-09 07:45] LABS: HEMATOCRIT 20.7 % (32.4-45.2); HEMOGLOBIN 7.1 GM/dL (10.7-15.3); MCH 27.7 pg (25.7-33.7); MCHC 34.2 g/dl (32.0-36.0); MEAN PLT VOLUME 9.9 fl (7.5-11.1); PLATELET COUNT 261 10^3/uL (134-434); RBC 2.55 M/mm3 (3.60-5.2); RDW 16.2 % (11.6-15.6); WHITE BLOOD COUNT 7.1 K/mm3 (4.0-10.0)
[2023-02-09 07:52] LABS: ALBUMIN 1.5 g/dl (3.4-5.0); BLOOD UREA NITROGEN 41.1 mg/dL (7-18); CALCIUM 7.9 mg/dL (8.5-10.1)
[2023-02-09 07:55] LABS: CREATININE 2.4 mg/dL (0.55-1.3)
[2023-02-09 07:57] LABS: BILIRUBIN,TOTAL 0.2 mg/dL (0.2-1); TOT PROT 4.6 g/dl (6.4-8.2)
[2023-02-09] MEDS ORDERED: FENTANYL CITRATE/PF 50 MCG/ML VIAL IVPUSH PRN (09:39)
[2023-02-09] MEDS ORDERED: FUROSEMIDE 40 MG/4 ML INJECTABLE VIAL IVPUSH ONE (09:45)
[2023-02-09] MEDS: ENOXAPARIN NA (PORCINE) 30 MG/0.3 ML DISP.SYRIN SQ SCH (10:32)
[2023-02-09] MEDS: PANTOPRAZOLE SODIUM 40 MG VIAL IVPUSH SCH (10:32)
[2023-02-09] MEDS: CHLORHEXIDINE GLUCONATE 4% CLEANSER FOR DECOLONIZATION TP SCH (21:18)
[2023-02-10] MEDS: PIPERACILLIN/TAZOB 3.375 GM 3.375 GM in DEXTROSE 5%-WATER - 50 ML IVPB SCH ×2 (02:19→10:06)
[2023-02-10] MEDS: levETIRAcetam 500 MG/5 ML INJECTION VIAL IVPB SCH ×2 (06:40→17:21)
[2023-02-10 07:25] LABS: HEMATOCRIT 17.9 % (32.4-45.2); MCH 27.9 pg (25.7-33.7); MCHC 34.4 g/dl (32.0-36.0); MEAN PLT VOLUME 9.4 fl (7.5-11.1); PLATELET COUNT 358 10^3/uL (134-434); RBC 2.21 M/mm3 (3.60-5.2); RDW 16.1 % (11.6-15.6)
[2023-02-10 07:29] LABS: HEMOGLOBIN 6.2 GM/dL (10.7-15.3)
[2023-02-10 08:46] LABS: CALCIUM 8.1 mg/dL (8.5-10.1)
[2023-02-10 08:47] LABS: ALBUMIN 1.7 g/dl (3.4-5.0); BLOOD UREA NITROGEN 59.1 mg/dL (7-18); MAGNESIUM 2.1 mg/dL (1.8-2.4)
[2023-02-10 08:50] LABS: CREATININE 3.2 mg/dL (0.55-1.3); PHOSPHOROUS 3.5 mg/dL (2.5-4.9)
[2023-02-10 08:51] LABS: BILIRUBIN,TOTAL 0.3 mg/dL (0.2-1)
[2023-02-10 09:05] LABS: HEMATOCRIT 17.5 % (32.4-45.2); MCH 27.4 pg (25.7-33.7); MCHC 33.6 g/dl (32.0-36.0); MEAN CELL VOLUME 81.5 fl (80-96); MEAN PLT VOLUME 9.5 fl (7.5-11.1); PLATELET COUNT 375 10^3/uL (134-434); RBC 2.15 M/mm3 (3.60-5.2); RDW 16.3 % (11.6-15.6); WHITE BLOOD COUNT 12.9 K/mm3 (4.0-10.0)
[2023-02-10 09:17] LABS: HEMOGLOBIN 5.9 GM/dL (10.7-15.3)
[2023-02-10] MEDS: PANTOPRAZOLE SODIUM 40 MG VIAL IVPUSH SCH (10:05)
[2023-02-10] MEDS ORDERED: FUROSEMIDE 40 MG/4 ML INJECTABLE VIAL IVPB ONE (12:15)
[2023-02-10] MEDS ORDERED: FUROSEMIDE 40 MG/4 ML INJECTABLE VIAL IVPUSH ONE (14:00)
[2023-02-10] MEDS ORDERED: MIDAZOLAM HCL 2 MG/2 ML SINGLE DOSE VIAL IVPUSH STA (15:11)
[2023-02-10] MEDS ORDERED: KETAMINE HCL 200 MG/20 ML VIAL IVPUSH STA (15:12)
[2023-02-10] MEDS ORDERED: ROCURONIUM BROMIDE 50 MG/5 ML VIAL IV STA (15:12)
[2023-02-10] MEDS ORDERED: NOREPINEPHRINE BITARTRATE 4,000 MCG in DEXTROSE 5%-WATER - 496 ML IV SCH (15:15)
[2023-02-10] MEDS ORDERED: RAPID SEQUENCE INTUBATION KIT NR ONE (15:28)
[2023-02-10] MEDS ORDERED: MIDAZOLAM HCL 5 MG/1 ML Single Dose Vial ONE (15:30)
[2023-02-10] MEDS: FENTANYL CITRATE/PF 50 MCG/ML VIAL IVPUSH PRN (17:20)
[2023-02-10 20:23] LABS: HEMATOCRIT 24.6 % (32.4-45.2); HEMOGLOBIN 8.3 GM/dL (10.7-15.3); MCH 28.1 pg (25.7-33.7); MCHC 33.8 g/dl (32.0-36.0); MEAN PLT VOLUME 8.8 fl (7.5-11.1); PLATELET COUNT 392 10^3/uL (134-434); RBC 2.96 M/mm3 (3.60-5.2); RDW 15.8 % (11.6-15.6); WHITE BLOOD COUNT 14.7 K/mm3 (4.0-10.0)
[2023-02-10] MEDS: PROPOFOL 1,000,000 MCG/100 ML VIAL IVPB SCH (21:48)
[2023-02-10] MEDS: CHLORHEXIDINE GLUCONATE 4% CLEANSER FOR DECOLONIZATION TP SCH (21:49)
[2023-02-11] MEDS: PROPOFOL 1,000,000 MCG/100 ML VIAL IVPB SCH ×2 (02:28→10:50)
[2023-02-11] MEDS: levETIRAcetam 500 MG/5 ML INJECTION VIAL IVPB SCH ×2 (05:14→17:00)
[2023-02-11 07:48] LABS: HEMATOCRIT 20.3 % (32.4-45.2); HEMOGLOBIN 7.2 GM/dL (10.7-15.3); MCH 28.8 pg (25.7-33.7); MCHC 35.3 g/dl (32.0-36.0); MEAN CELL VOLUME 81.6 fl (80-96); MEAN PLT VOLUME 9.1 fl (7.5-11.1); PLATELET COUNT 336 10^3/uL (134-434); RBC 2.49 M/mm3 (3.60-5.2); RDW 15.7 % (11.6-15.6); WHITE BLOOD COUNT 10.6 K/mm3 (4.0-10.0)
[2023-02-11 08:02] LABS: CREATININE 3.7 mg/dL (0.55-1.3); PHOSPHOROUS 4.2 mg/dL (2.5-4.9)
[2023-02-11] MEDS: FENTANYL CITRATE/PF 50 MCG/ML VIAL IVPUSH PRN (10:51)
[2023-02-11] MEDS: PANTOPRAZOLE SODIUM 40 MG VIAL IVPUSH SCH (10:51)
[2023-02-11] MEDS ORDERED: FUROSEMIDE 40 MG/4 ML INJECTABLE VIAL IVPUSH ONE (16:20)
[2023-02-11] MEDS: CHLORHEXIDINE GLUCONATE 4% CLEANSER FOR DECOLONIZATION TP SCH (21:08)
[2023-02-12] MEDS: levETIRAcetam 500 MG/5 ML INJECTION VIAL IVPB SCH ×2 (06:06→16:29)
[2023-02-12 07:38] LABS: HEMATOCRIT 20.2 % (32.4-45.2); MCH 28.3 pg (25.7-33.7); MCHC 34.1 g/dl (32.0-36.0); MEAN CELL VOLUME 83.1 fl (80-96); MEAN PLT VOLUME 9.1 fl (7.5-11.1); PLATELET COUNT 343 10^3/uL (134-434); RBC 2.43 M/mm3 (3.60-5.2); RDW 16.4 % (11.6-15.6); WHITE BLOOD COUNT 8.9 K/mm3 (4.0-10.0)
[2023-02-12 07:45] LABS: HEMOGLOBIN 6.9 GM/dL (10.7-15.3)
[2023-02-12 08:29] LABS: ALBUMIN 1.6 g/dl (3.4-5.0); BLOOD UREA NITROGEN 74.6 mg/dL (7-18); CALCIUM 7.9 mg/dL (8.5-10.1); MAGNESIUM 2.3 mg/dL (1.8-2.4)
[2023-02-12 08:32] LABS: CREATININE 4.1 mg/dL (0.55-1.3)
[2023-02-12 08:33] LABS: PHOSPHOROUS 4.7 mg/dL (2.5-4.9)
[2023-02-12 08:34] LABS: BILIRUBIN,TOTAL 0.3 mg/dL (0.2-1)
[2023-02-12] MEDS: PANTOPRAZOLE SODIUM 40 MG VIAL IVPUSH SCH (10:47)
[2023-02-12] MEDS ORDERED: FUROSEMIDE 40 MG/4 ML INJECTABLE VIAL IVPUSH ONE (15:56)
[2023-02-12] MEDS: CHLORHEXIDINE GLUCONATE 4% CLEANSER FOR DECOLONIZATION TP SCH (21:32)
[2023-02-13] MEDS: levETIRAcetam 500 MG/5 ML INJECTION VIAL IVPB SCH ×2 (05:53→18:29)
[2023-02-13 08:07] LABS: HEMATOCRIT 20.9 % (32.4-45.2); HEMOGLOBIN 7.3 GM/dL (10.7-15.3); MCH 29.2 pg (25.7-33.7); MEAN CELL VOLUME 83.3 fl (80-96); MEAN PLT VOLUME 8.4 fl (7.5-11.1); PLATELET COUNT 355 10^3/uL (134-434); RBC 2.51 M/mm3 (3.60-5.2); RDW 15.6 % (11.6-15.6); WHITE BLOOD COUNT 9.8 K/mm3 (4.0-10.0)
[2023-02-13 08:23] LABS: ALBUMIN 1.5 g/dl (3.4-5.0); BLOOD UREA NITROGEN 93.6 mg/dL (7-18); CALCIUM 7.9 mg/dL (8.5-10.1); MAGNESIUM 2.4 mg/dL (1.8-2.4)
[2023-02-13 08:26] LABS: CREATININE 4.6 mg/dL (0.55-1.3); PHOSPHOROUS 5.6 mg/dL (2.5-4.9)
[2023-02-13 08:28] LABS: BILIRUBIN,TOTAL 0.3 mg/dL (0.2-1); TOT PROT 4.7 g/dl (6.4-8.2)
[2023-02-13] MEDS: PANTOPRAZOLE SODIUM 40 MG VIAL IVPUSH SCH ×2 (09:09→21:33)
[2023-02-13] MEDS ORDERED: FUROSEMIDE 40 MG/4 ML INJECTABLE VIAL IVPUSH ONE (10:30)
[2023-02-13 20:11] LABS: HEMATOCRIT 21.7 % (32.4-45.2); HEMOGLOBIN 7.5 GM/dL (10.7-15.3); MCH 29.2 pg (25.7-33.7); MCHC 34.7 g/dl (32.0-36.0); MEAN CELL VOLUME 84.3 fl (80-96); MEAN PLT VOLUME 8.3 fl (7.5-11.1); PLATELET COUNT 345 10^3/uL (134-434); RBC 2.57 M/mm3 (3.60-5.2); RDW 16.1 % (11.6-15.6); WHITE BLOOD COUNT 10.4 K/mm3 (4.0-10.0)
[2023-02-13] MEDS: CHLORHEXIDINE GLUCONATE 4% CLEANSER FOR DECOLONIZATION TP SCH (21:33)
[2023-02-14] MEDS ORDERED: LORazepam 2 MG/ML SDV VIAL IVPUSH PRN (03:23)
[2023-02-14 06:51] LABS: HEMATOCRIT 18.1 % (32.4-45.2); MCH 29.8 pg (25.7-33.7); MCHC 35.4 g/dl (32.0-36.0); MEAN CELL VOLUME 84.2 fl (80-96); MEAN PLT VOLUME 8.3 fl (7.5-11.1); PLATELET COUNT 298 10^3/uL (134-434); RBC 2.15 M/mm3 (3.60-5.2); RDW 16.2 % (11.6-15.6); WHITE BLOOD COUNT 9.7 K/mm3 (4.0-10.0)
[2023-02-14 07:03] LABS: HEMOGLOBIN 6.4 GM/dL (10.7-15.3)
[2023-02-14 07:31] LABS: CHLORIDE 104 mmol/L (98-107); SODIUM 143 mmol/L (136-145)
[2023-02-14 07:35] LABS: GLUCOSE,RANDOM 160 mg/dL (74-106)
[2023-02-14 07:36] LABS: ALBUMIN 1.5 g/dl (3.4-5.0); ANION GAP 12 MMOL/L (8-16); CO2 27 mmol/L (21-32); MAGNESIUM 2.5 mg/dL (1.8-2.4)
[2023-02-14 07:39] LABS: CREATININE 4.9 mg/dL (0.55-1.3); PHOSPHOROUS 6.3 mg/dL (2.5-4.9); SGOT/AST 11 U/L (15-37); SGPT/ALT 21 U/L (13-61)
[2023-02-14 07:40] LABS: TOT PROT 4.7 g/dl (6.4-8.2)
[2023-02-14 07:41] LABS: ALK PHOS 77 U/L (45-117); BILIRUBIN,TOTAL 0.2 mg/dL (0.2-1)
[2023-02-14 07:42] LABS: BLOOD UREA NITROGEN 107.5 mg/dL (7-18)
[2023-02-14] MEDS: PANTOPRAZOLE SODIUM 40 MG VIAL IVPUSH SCH ×2 (09:29→21:35)
[2023-02-14] MEDS ORDERED: FUROSEMIDE 40 MG/4 ML INJECTABLE VIAL IVPUSH ONE (16:35)
[2023-02-14] MEDS: levETIRAcetam 500 MG/5 ML INJECTION VIAL IVPB SCH (17:12)
[2023-02-14] MEDS: CHLORHEXIDINE GLUCONATE 4% CLEANSER FOR DECOLONIZATION TP SCH (21:35)
[2023-02-15] MEDS ORDERED: METOPROLOL TARTRATE 5 MG/5 ML VIAL ONE (04:02)
[2023-02-15] MEDS: levETIRAcetam 500 MG/5 ML INJECTION VIAL IVPB SCH ×2 (05:39→17:56)
[2023-02-15 06:48] LABS: HEMATOCRIT 21.4 % (32.4-45.2); HEMOGLOBIN 7.6 GM/dL (10.7-15.3); MCH 30.6 pg (25.7-33.7); MCHC 35.6 g/dl (32.0-36.0); MEAN CELL VOLUME 85.8 fl (80-96); MEAN PLT VOLUME 8.8 fl (7.5-11.1); PLATELET COUNT 264 10^3/uL (134-434); RBC 2.49 M/mm3 (3.60-5.2); RDW 15.6 % (11.6-15.6); WHITE BLOOD COUNT 9.4 K/mm3 (4.0-10.0)
[2023-02-15 07:11] LABS: CHLORIDE 103 mmol/L (98-107); SODIUM 140 mmol/L (136-145)
[2023-02-15 07:14] LABS: CALCIUM 8.2 mg/dL (8.5-10.1)
[2023-02-15 07:15] LABS: ALBUMIN 1.5 g/dl (3.4-5.0); ANION GAP 9 MMOL/L (8-16); CO2 28 mmol/L (21-32); GLUCOSE,RANDOM 145 mg/dL (74-106); MAGNESIUM 2.4 mg/dL (1.8-2.4)
[2023-02-15 07:18] LABS: CREATININE 5.4 mg/dL (0.55-1.3); PHOSPHOROUS 6.5 mg/dL (2.5-4.9); SGOT/AST 12 U/L (15-37); SGPT/ALT 21 U/L (13-61)
[2023-02-15 07:20] LABS: BILIRUBIN,TOTAL 0.3 mg/dL (0.2-1); TOT PROT 4.9 g/dl (6.4-8.2)
[2023-02-15 07:21] LABS: ALK PHOS 91 U/L (45-117)
[2023-02-15] MEDS: DEXMEDETOMIDINE PREMIX 400 MCG/100 ML BAG IVPB SCH ×2 (07:23→21:56)
[2023-02-15] MEDS ORDERED: SODIUM CHLORIDE 250 ML IV PRN (08:37)
[2023-02-15] MEDS: PANTOPRAZOLE SODIUM 40 MG VIAL IVPUSH SCH ×2 (09:33→21:56)
[2023-02-15] MEDS: CHLORHEXIDINE GLUCONATE 4% CLEANSER FOR DECOLONIZATION TP SCH (21:56)
[2023-02-16] MEDS: levETIRAcetam 500 MG/5 ML INJECTION VIAL IVPB SCH ×2 (06:39→16:54)
[2023-02-16 07:37] LABS: HEMATOCRIT 21.2 % (32.4-45.2); HEMOGLOBIN 7.4 GM/dL (10.7-15.3); MCH 30.3 pg (25.7-33.7); MEAN CELL VOLUME 86.7 fl (80-96); MEAN PLT VOLUME 8.4 fl (7.5-11.1); PLATELET COUNT 221 10^3/uL (134-434); RBC 2.44 M/mm3 (3.60-5.2); RDW 16.3 % (11.6-15.6); WHITE BLOOD COUNT 5.7 K/mm3 (4.0-10.0)
[2023-02-16 08:15] LABS: CALCIUM 8.4 mg/dL (8.5-10.1)
[2023-02-16 08:16] LABS: ALBUMIN 1.7 g/dl (3.4-5.0); MAGNESIUM 2.1 mg/dL (1.8-2.4)
[2023-02-16 08:19] LABS: CREATININE 3.1 mg/dL (0.55-1.3); PHOSPHOROUS 3.9 mg/dL (2.5-4.9)
[2023-02-16 08:20] LABS: BILIRUBIN,TOTAL 0.3 mg/dL (0.2-1); TOT PROT 5.4 g/dl (6.4-8.2)
[2023-02-16 08:44] LABS: BLOOD UREA NITROGEN 58.1 mg/dL (7-18)
[2023-02-16] MEDS ORDERED: FUROSEMIDE 40 MG/4 ML INJECTABLE VIAL IVPUSH ONE (09:32)
[2023-02-16] MEDS: PANTOPRAZOLE SODIUM 40 MG VIAL IVPUSH SCH ×2 (10:09→21:10)
[2023-02-16] MEDS: CHLORHEXIDINE GLUCONATE 4% CLEANSER FOR DECOLONIZATION TP SCH (21:10)
[2023-02-17] MEDS: levETIRAcetam 500 MG/5 ML INJECTION VIAL IVPB SCH ×2 (05:46→18:37)
[2023-02-17 07:15] LABS: BASO % 0.5 % (0-2.0); EOS % 9.2 % (0-4.5); HEMATOCRIT 20.1 % (32.4-45.2); MCH 30.7 pg (25.7-33.7); MCHC 35.1 g/dl (32.0-36.0); MEAN CELL VOLUME 87.4 fl (80-96); MEAN PLT VOLUME 8.7 fl (7.5-11.1); NEUT % 77.3 % (42.8-82.8); PLATELET COUNT 232 10^3/uL (134-434); RDW 16.3 % (11.6-15.6); WHITE BLOOD COUNT 7.1 K/mm3 (4.0-10.0)
[2023-02-17 07:21] LABS: INR 1.14 (0.83-1.09); PROTHROMBIN TIME (PATIENT) 13.2 SEC (9.7-13.0)
[2023-02-17 07:37] LABS: ALBUMIN 1.6 g/dl (3.4-5.0); CALCIUM 8.1 mg/dL (8.5-10.1)
[2023-02-17 07:40] LABS: CREATININE 3.7 mg/dL (0.55-1.3)
[2023-02-17 07:42] LABS: BILIRUBIN,TOTAL 0.2 mg/dL (0.2-1); TOT PROT 5.2 g/dl (6.4-8.2)
[2023-02-17] MEDS: PANTOPRAZOLE SODIUM 40 MG VIAL IVPUSH SCH ×2 (09:16→21:12)
[2023-02-17] MEDS ORDERED: LORazepam 2 MG/ML SDV VIAL IVPUSH ONE (18:22)
[2023-02-17] MEDS ORDERED: MIDAZOLAM HCL 2 MG/2 ML SINGLE DOSE VIAL IVPUSH ONE (18:41)
[2023-02-17] MEDS ORDERED: MIDAZOLAM HCL 2 MG/2 ML SINGLE DOSE VIAL ONE (18:42)
[2023-02-17] MEDS: CHLORHEXIDINE GLUCONATE 4% CLEANSER FOR DECOLONIZATION TP SCH (21:12)
[2023-02-18] MEDS: levETIRAcetam 500 MG/5 ML INJECTION VIAL IVPB SCH ×2 (04:02→18:32)
[2023-02-18 07:34] LABS: ALBUMIN 1.6 g/dl (3.4-5.0); BLOOD UREA NITROGEN 85.5 mg/dL (7-18); CALCIUM 8.1 mg/dL (8.5-10.1); MAGNESIUM 2.3 mg/dL (1.8-2.4)
[2023-02-18 07:37] LABS: CREATININE 4.2 mg/dL (0.55-1.3); PHOSPHOROUS 5.6 mg/dL (2.5-4.9)
[2023-02-18 07:38] LABS: BILIRUBIN,TOTAL 0.4 mg/dL (0.2-1)
[2023-02-18 07:39] LABS: TOT PROT 5.2 g/dl (6.4-8.2)
[2023-02-18 07:40] LABS: BASO % 0.7 % (0-2.0); EOS % 8.6 % (0-4.5); LYMPH % 4.2 % (8-40); MCHC 34.8 g/dl (32.0-36.0); MEAN CELL VOLUME 86.4 fl (80-96); MEAN PLT VOLUME 8.4 fl (7.5-11.1); MONO % 8.8 % (3.8-10.2); NEUT % 77.7 % (42.8-82.8); PLATELET COUNT 274 10^3/uL (134-434); RBC 2.31 M/mm3 (3.60-5.2); RDW 16.3 % (11.6-15.6); WHITE BLOOD COUNT 8.7 K/mm3 (4.0-10.0)
[2023-02-18 07:51] LABS: HEMOGLOBIN 6.9 GM/dL (10.7-15.3)
[2023-02-18] MEDS: PANTOPRAZOLE SODIUM 40 MG VIAL IVPUSH SCH ×2 (10:16→21:39)
[2023-02-18] MEDS: DEXMEDETOMIDINE PREMIX 400 MCG/100 ML BAG IVPB SCH (15:49)
[2023-02-18] MEDS ORDERED: MIDAZOLAM HCL 2 MG/2 ML SINGLE DOSE VIAL IVPUSH ONE (16:24)
[2023-02-18] MEDS: CHLORHEXIDINE GLUCONATE 4% CLEANSER FOR DECOLONIZATION TP SCH (21:39)
[2023-02-19] MEDS: levETIRAcetam 500 MG/5 ML INJECTION VIAL IVPB SCH ×2 (04:22→16:22)
[2023-02-19 07:00] LABS: HEMATOCRIT 22.3 % (32.4-45.2); HEMOGLOBIN 7.9 GM/dL (10.7-15.3); MCH 30.3 pg (25.7-33.7); MCHC 35.4 g/dl (32.0-36.0); MEAN CELL VOLUME 85.6 fl (80-96); MEAN PLT VOLUME 9.3 fl (7.5-11.1); PLATELET COUNT 236 10^3/uL (134-434); RBC 2.61 M/mm3 (3.60-5.2); RDW 16.4 % (11.6-15.6); WHITE BLOOD COUNT 8.8 K/mm3 (4.0-10.0)
[2023-02-19 07:28] LABS: CALCIUM 8.2 mg/dL (8.5-10.1); MAGNESIUM 2.5 mg/dL (1.8-2.4)
[2023-02-19 07:29] LABS: ALBUMIN 1.6 g/dl (3.4-5.0)
[2023-02-19 07:32] LABS: CREATININE 4.4 mg/dL (0.55-1.3)
[2023-02-19 07:33] LABS: BILIRUBIN,TOTAL 0.3 mg/dL (0.2-1); TOT PROT 5.2 g/dl (6.4-8.2)
[2023-02-19] MEDS: DEXMEDETOMIDINE PREMIX 400 MCG/100 ML BAG IVPB SCH ×3 (10:10→21:05)
[2023-02-19] MEDS ORDERED: SODIUM CHLORIDE 250 ML IV PRN ×2 (10:24→11:00)
[2023-02-19] MEDS ORDERED: morphine SULFATE 4 MG/ML VIAL IVPUSH ONE (10:44)
[2023-02-19] MEDS ORDERED: morphine SULFATE 4 MG/ML VIAL ONE (10:48)
[2023-02-19] MEDS ORDERED: EPOETIN ALFA-EPBX 10,000 UNIT/ML VIAL IVPUSH ONE (11:00)
[2023-02-19] MEDS: PANTOPRAZOLE SODIUM 40 MG VIAL IVPUSH SCH ×2 (14:47→21:05)
[2023-02-19] MEDS: CHLORHEXIDINE GLUCONATE 4% CLEANSER FOR DECOLONIZATION TP SCH (21:05)
[2023-02-20] MEDS: levETIRAcetam 500 MG/5 ML INJECTION VIAL IVPB SCH ×2 (05:18→17:17)
[2023-02-20 06:54] LABS: HEMATOCRIT 21.2 % (32.4-45.2); HEMOGLOBIN 7.3 GM/dL (10.7-15.3); MCH 29.7 pg (25.7-33.7); MCHC 34.7 g/dl (32.0-36.0); MEAN CELL VOLUME 85.6 fl (80-96); MEAN PLT VOLUME 9.4 fl (7.5-11.1); PLATELET COUNT 185 10^3/uL (134-434); RBC 2.47 M/mm3 (3.60-5.2); WHITE BLOOD COUNT 6.4 K/mm3 (4.0-10.0)
[2023-02-20 07:20] LABS: CALCIUM 7.9 mg/dL (8.5-10.1)
[2023-02-20 07:21] LABS: ALBUMIN 1.6 g/dl (3.4-5.0)
[2023-02-20 07:23] LABS: PHOSPHOROUS 3.9 mg/dL (2.5-4.9)
[2023-02-20 07:25] LABS: BILIRUBIN,TOTAL 0.2 mg/dL (0.2-1)
[2023-02-20 07:34] LABS: BLOOD UREA NITROGEN 49.9 mg/dL (7-18)
[2023-02-20] MEDS: DEXMEDETOMIDINE PREMIX 400 MCG/100 ML BAG IVPB SCH ×2 (09:05→17:17)
[2023-02-20] MEDS: PANTOPRAZOLE SODIUM 40 MG VIAL IVPUSH SCH ×2 (09:05→21:29)
[2023-02-20 10:43] LABS: RETICULOCYTES 3.25 % (0.5-1.5)
[2023-02-20] MEDS: CHLORHEXIDINE GLUCONATE 4% CLEANSER FOR DECOLONIZATION TP SCH (21:30)
[2023-02-21] MEDS: DEXMEDETOMIDINE PREMIX 400 MCG/100 ML BAG IVPB SCH ×3 (01:31→17:23)
[2023-02-21] MEDS: levETIRAcetam 500 MG/5 ML INJECTION VIAL IVPB SCH ×2 (05:45→17:24)
[2023-02-21] MEDS ORDERED: SODIUM CHLORIDE 250 ML IV PRN (09:00)
[2023-02-21] MEDS ORDERED: EPOETIN ALFA-EPBX 10,000 UNIT/ML VIAL IVPUSH ONE (09:00)
[2023-02-21 09:29] LABS: HEMOGLOBIN 7.5 GM/dL (10.7-15.3); MCH 29.9 pg (25.7-33.7); MCHC 34.1 g/dl (32.0-36.0); MEAN CELL VOLUME 87.5 fl (80-96); MEAN PLT VOLUME 9.5 fl (7.5-11.1); PLATELET COUNT 198 10^3/uL (134-434); RBC 2.51 M/mm3 (3.60-5.2); RDW 16.2 % (11.6-15.6); WHITE BLOOD COUNT 6.1 K/mm3 (4.0-10.0)
[2023-02-21 10:00] LABS: BLOOD UREA NITROGEN 67.5 mg/dL (7-18); CALCIUM 7.9 mg/dL (8.5-10.1)
[2023-02-21 10:03] LABS: CREATININE 3.7 mg/dL (0.55-1.3)
[2023-02-21] MEDS: PANTOPRAZOLE SODIUM 40 MG VIAL IVPUSH SCH ×2 (10:29→21:35)
[2023-02-21] MEDS ORDERED: morphine SULFATE 4 MG/ML VIAL ONE (12:41)
[2023-02-21] MEDS ORDERED: METOPROLOL TARTRATE 5 MG/5 ML VIAL ONE (12:41)
[2023-02-21] MEDS ORDERED: METOPROLOL TARTRATE 5 MG/5 ML VIAL IVPUSH ONE (12:44)
[2023-02-21] MEDS ORDERED: morphine SULFATE 4 MG/ML VIAL IVPUSH ONE (12:44)
[2023-02-21] MEDS: CHLORHEXIDINE GLUCONATE 4% CLEANSER FOR DECOLONIZATION TP SCH (21:35)
[2023-02-22] MEDS: levETIRAcetam 500 MG/5 ML INJECTION VIAL IVPB SCH ×2 (04:00→18:38)
[2023-02-22 07:54] LABS: HEMATOCRIT 23.4 % (32.4-45.2); HEMOGLOBIN 7.8 GM/dL (10.7-15.3); MCH 29.3 pg (25.7-33.7); MCHC 33.3 g/dl (32.0-36.0); MEAN PLT VOLUME 9.2 fl (7.5-11.1); PLATELET COUNT 265 10^3/uL (134-434); RBC 2.66 M/mm3 (3.60-5.2); RDW 16.1 % (11.6-15.6); WHITE BLOOD COUNT 7.9 K/mm3 (4.0-10.0)
[2023-02-22 08:22] LABS: CALCIUM 8.3 mg/dL (8.5-10.1)
[2023-02-22 08:23] LABS: ALBUMIN 1.6 g/dl (3.4-5.0); MAGNESIUM 2.2 mg/dL (1.8-2.4)
[2023-02-22 08:26] LABS: BILIRUBIN,TOTAL 0.2 mg/dL (0.2-1); CREATININE 2.6 mg/dL (0.55-1.3); PHOSPHOROUS 3.3 mg/dL (2.5-4.9); TOT PROT 5.3 g/dl (6.4-8.2)
[2023-02-22] MEDS: PANTOPRAZOLE SODIUM 40 MG VIAL IVPUSH SCH ×2 (09:43→21:04)
[2023-02-22] MEDS ORDERED: SODIUM CHLORIDE 250 ML IV PRN (12:00)
[2023-02-22] MEDS: HEPARIN NA (PORCINE) 5,000 UNITS/ML 1ML VIAL SQ SCH ×2 (14:59→21:04)
[2023-02-22] MEDS: DEXMEDETOMIDINE PREMIX 400 MCG/100 ML BAG IVPB SCH (15:30)
[2023-02-22] MEDS: CHLORHEXIDINE GLUCONATE 4% CLEANSER FOR DECOLONIZATION TP SCH (21:04)
[2023-02-23] MEDS: levETIRAcetam 500 MG/5 ML INJECTION VIAL IVPB SCH ×2 (04:35→17:50)
[2023-02-23 07:13] LABS: HEMATOCRIT 22.8 % (32.4-45.2); HEMOGLOBIN 7.8 GM/dL (10.7-15.3); MCH 30.3 pg (25.7-33.7); MCHC 34.2 g/dl (32.0-36.0); MEAN CELL VOLUME 88.5 fl (80-96); MEAN PLT VOLUME 9.6 fl (7.5-11.1); PLATELET COUNT 268 10^3/uL (134-434); RBC 2.58 M/mm3 (3.60-5.2); RDW 15.8 % (11.6-15.6); WHITE BLOOD COUNT 7.7 K/mm3 (4.0-10.0)
[2023-02-23 07:36] LABS: ALBUMIN 1.6 g/dl (3.4-5.0); BLOOD UREA NITROGEN 55.5 mg/dL (7-18); CALCIUM 8.4 mg/dL (8.5-10.1)
[2023-02-23 07:40] LABS: BILIRUBIN,TOTAL 0.2 mg/dL (0.2-1); CREATININE 3.3 mg/dL (0.55-1.3); TOT PROT 5.4 g/dl (6.4-8.2)
[2023-02-23] MEDS: ALBUMIN HUMAN 25% 12.5 GM/50 ML VIAL IV SCH ×4 (09:00→10:30)
[2023-02-23] MEDS ORDERED: EPOETIN ALFA-EPBX 10,000 UNIT/ML VIAL IVPUSH ONE (09:45)
[2023-02-23] MEDS: PANTOPRAZOLE SODIUM 40 MG VIAL IVPUSH SCH ×2 (10:30→21:10)
[2023-02-23] MEDS: HEPARIN NA (PORCINE) 5,000 UNITS/ML 1ML VIAL SQ SCH ×2 (10:30→21:10)
[2023-02-23] MEDS: DEXMEDETOMIDINE PREMIX 400 MCG/100 ML BAG IVPB SCH (15:45)
[2023-02-23] MEDS: CHLORHEXIDINE GLUCONATE 4% CLEANSER FOR DECOLONIZATION TP SCH (21:11)
[2023-02-24] MEDS: DEXMEDETOMIDINE PREMIX 400 MCG/100 ML BAG IVPB SCH ×3 (02:00→21:40)
[2023-02-24] MEDS: TUBE FEED DECLOGGING SOLUTION 12,000 UNITS NR SCH ×4 (03:03→17:05)
[2023-02-24] MEDS: levETIRAcetam 500 MG/5 ML INJECTION VIAL IVPB SCH ×2 (05:52→17:12)
[2023-02-24 06:58] LABS: HEMATOCRIT 20.4 % (32.4-45.2); MCH 29.5 pg (25.7-33.7); MCHC 33.2 g/dl (32.0-36.0); MEAN CELL VOLUME 88.7 fl (80-96); MEAN PLT VOLUME 8.9 fl (7.5-11.1); PLATELET COUNT 241 10^3/uL (134-434); RDW 15.8 % (11.6-15.6); WHITE BLOOD COUNT 7.3 K/mm3 (4.0-10.0)
[2023-02-24 07:20] LABS: CALCIUM 8.2 mg/dL (8.5-10.1)
[2023-02-24 07:21] LABS: BLOOD UREA NITROGEN 34.2 mg/dL (7-18); MAGNESIUM 2.1 mg/dL (1.8-2.4)
[2023-02-24 07:25] LABS: CREATININE 2.2 mg/dL (0.55-1.3); PHOSPHOROUS 3.3 mg/dL (2.5-4.9)
[2023-02-24 07:33] LABS: HEMOGLOBIN 6.8 GM/dL (10.7-15.3)
[2023-02-24] MEDS: PANTOPRAZOLE SODIUM 40 MG VIAL IVPUSH SCH ×2 (09:59→21:37)
[2023-02-24] MEDS: HEPARIN NA (PORCINE) 5,000 UNITS/ML 1ML VIAL SQ SCH ×2 (09:59→21:38)
[2023-02-24] MEDS: CHLORHEXIDINE GLUCONATE 4% CLEANSER FOR DECOLONIZATION TP SCH (21:38)
[2023-02-25] MEDS: levETIRAcetam 500 MG/5 ML INJECTION VIAL IVPB SCH ×2 (05:12→17:59)
[2023-02-25 07:39] LABS: BASO % 0.9 % (0-2.0); EOS % 3.4 % (0-4.5); HEMATOCRIT 24.7 % (32.4-45.2); HEMOGLOBIN 8.4 GM/dL (10.7-15.3); LYMPH % 6.2 % (8-40); MCH 30.2 pg (25.7-33.7); MCHC 34.1 g/dl (32.0-36.0); MEAN CELL VOLUME 88.3 fl (80-96); MEAN PLT VOLUME 9.7 fl (7.5-11.1); MONO % 8.4 % (3.8-10.2); NEUT % 81.1 % (42.8-82.8); PLATELET COUNT 396 10^3/uL (134-434); RDW 15.7 % (11.6-15.6); WHITE BLOOD COUNT 12.2 K/mm3 (4.0-10.0)
[2023-02-25 08:00] LABS: BLOOD UREA NITROGEN 45.1 mg/dL (7-18); CALCIUM 8.6 mg/dL (8.5-10.1); MAGNESIUM 2.2 mg/dL (1.8-2.4)
[2023-02-25 08:03] LABS: PHOSPHOROUS 3.6 mg/dL (2.5-4.9)
[2023-02-25 08:05] LABS: BILIRUBIN,TOTAL 0.5 mg/dL (0.2-1)
[2023-02-25 08:22] LABS: ALBUMIN 2.2 g/dl (3.4-5.0)
[2023-02-25] MEDS: TUBE FEED DECLOGGING SOLUTION 12,000 UNITS NR SCH (08:23)
[2023-02-25] MEDS ORDERED: TUBE FEED DECLOGGING SOLUTION 12,000 UNITS NR PRN (08:28)
[2023-02-25] MEDS: PANTOPRAZOLE SODIUM 40 MG VIAL IVPUSH SCH ×2 (09:44→21:21)
[2023-02-25] MEDS: DEXMEDETOMIDINE PREMIX 400 MCG/100 ML BAG IVPB SCH ×2 (10:01→15:15)
[2023-02-25] MEDS ORDERED: SODIUM CHLORIDE 250 ML IV PRN (17:47)
[2023-02-25] MEDS: CHLORHEXIDINE GLUCONATE 4% CLEANSER FOR DECOLONIZATION TP SCH (21:21)
[2023-02-26] MEDS: DEXMEDETOMIDINE PREMIX 400 MCG/100 ML BAG IVPB SCH ×3 (00:29→21:25)
[2023-02-26] MEDS: levETIRAcetam 500 MG/5 ML INJECTION VIAL IVPB SCH ×2 (05:02→18:07)
[2023-02-26 07:47] LABS: HEMATOCRIT 22.8 % (32.4-45.2); HEMOGLOBIN 7.7 GM/dL (10.7-15.3); MCH 29.7 pg (25.7-33.7); MCHC 33.9 g/dl (32.0-36.0); MEAN CELL VOLUME 87.7 fl (80-96); MEAN PLT VOLUME 9.1 fl (7.5-11.1); PLATELET COUNT 363 10^3/uL (134-434); RBC 2.59 M/mm3 (3.60-5.2); RDW 15.9 % (11.6-15.6); WHITE BLOOD COUNT 11.7 K/mm3 (4.0-10.0)
[2023-02-26 07:58] LABS: ALBUMIN 1.9 g/dl (3.4-5.0); MAGNESIUM 2.1 mg/dL (1.8-2.4)
[2023-02-26 08:00] LABS: CREATININE 3.6 mg/dL (0.55-1.3)
[2023-02-26 08:01] LABS: PHOSPHOROUS 3.7 mg/dL (2.5-4.9)
[2023-02-26 08:02] LABS: BILIRUBIN,TOTAL 0.5 mg/dL (0.2-1); TOT PROT 5.5 g/dl (6.4-8.2)
[2023-02-26] MEDS: PANTOPRAZOLE SODIUM 40 MG VIAL IVPUSH SCH ×2 (10:05→21:24)
[2023-02-26] MEDS ORDERED: EPOETIN ALFA-EPBX 10,000 UNIT/ML VIAL SQ ONE (17:47)
[2023-02-26] MEDS: CHLORHEXIDINE GLUCONATE 4% CLEANSER FOR DECOLONIZATION TP SCH (21:25)
[2023-02-27] MEDS: levETIRAcetam 500 MG/5 ML INJECTION VIAL IVPB SCH (04:36)
[2023-02-27] MEDS ORDERED: AMINO ACIDS/PROTEIN HYDROLYS 30 ML LIQUID.PKT PO SCH (08:00)
[2023-02-27] MEDS: PANTOPRAZOLE SODIUM 40 MG VIAL IVPUSH SCH (09:21)
[2023-02-27 10:11] VITALS: BP 118/76; TEMP 95.6
[2023-02-27] MEDS ORDERED: morphine SULFATE 4 MG/ML VIAL ONE (10:18)
[2023-02-27] MEDS ORDERED: morphine SULFATE 4 MG/ML VIAL IVPUSH ONE (10:23)
[2023-02-27] MEDS ORDERED: MORPHINE SULFATE/0.9% NACL/PF 100 MG/100 ML BAG ONE (10:23)
[2023-02-27] MEDS ORDERED: MORPHINE SULFATE/0.9% NACL/PF 100 MG/100 ML BAG IVPB SCH (10:30)
[2023-02-27] MEDS ORDERED: LORazepam 2 MG/ML SDV VIAL IVPUSH ONE (10:31)
[2023-02-27 10:35] VITALS: PULSE 54
[2023-02-27 12:18] VITALS: RESP 5
== END 2023-02-27 11:15 | disposition expired | DRG 870 ==
LOC: JER 00:55 → JERBED 01:44 → JICU 03:20
PROVIDERS: ADMIT Internal Medicine Pulmonary Disease; ATTEND Family Medicine
PROC: 5A1955Z Respiratory Ventilation, Greater than 96 Consecutive Hours (ICD-10-PCS; principal; 2023-01-29)
PROC: 02HV33Z Insertion of Infusion Device into Superior Vena Cava, Percutaneous Approach (ICD-10-PCS; 2023-01-29)
PROC: B548ZZA Ultrasonography of Superior Vena Cava, Guidance (ICD-10-PCS; 2023-01-29)
PROC: 0W9930Z Drainage of Right Pleural Cavity with Drainage Device, Percutaneous Approach (ICD-10-PCS; 2023-01-31)
PROC: 30233N1 Transfusion of Nonautologous Red Blood Cells into Peripheral Vein, Percutaneous Approach (ICD-10-PCS; 2023-01-31)
PROC: 4A10X4Z Monitoring of Central Nervous Electrical Activity, External Approach (ICD-10-PCS; 2023-02-01)
PROC: 02HV33Z Insertion of Infusion Device into Superior Vena Cava, Percutaneous Approach (ICD-10-PCS; 2023-02-05)
PROC: B548ZZA Ultrasonography of Superior Vena Cava, Guidance (ICD-10-PCS; 2023-02-05)
PROC: 5A1D70Z Performance of Urinary Filtration, Intermittent, Less than 6 Hours Per Day (ICD-10-PCS; 2023-02-05)
DX: A41.9 Sepsis, unspecified organism (principal); R65.21 Severe sepsis with septic shock; K72.00 Acute and subacute hepatic failure without coma; J96.21 Acute and chronic respiratory failure with hypoxia; J96.22 Acute and chronic respiratory failure with hypercapnia; I50.33 Acute on chronic diastolic (congestive) heart failure; J69.0 Pneumonitis due to inhalation of food and vomit; N17.0 Acute kidney failure with tubular necrosis; J44.1 Chronic obstructive pulmonary disease with (acute) exacerbation; E87.20 Acidosis, unspecified; R64 Cachexia; I13.0 Hypertensive heart and chronic kidney disease with heart failure and stage 1 through stage 4 chronic kidney disease, or unspecified chronic kidney disease; I24.8 Other forms of acute ischemic heart disease; J44.0 Chronic obstructive pulmonary disease with (acute) lower respiratory infection; J93.9 Pneumothorax, unspecified; G93.1 Anoxic brain damage, not elsewhere classified; F03.90 Unspecified dementia, unspecified severity, without behavioral disturbance, psychotic disturbance, mood disturbance, and anxiety; I45.10 Unspecified right bundle-branch block; I50.9 Heart failure, unspecified; E78.5 Hyperlipidemia, unspecified; R94.31 Abnormal electrocardiogram [ECG] [EKG]; E87.6 Hypokalemia; R19.5 Other fecal abnormalities; E11.22 Type 2 diabetes mellitus with diabetic chronic kidney disease; N18.9 Chronic kidney disease, unspecified; K21.9 Gastro-esophageal reflux disease without esophagitis; R79.89 Other specified abnormal findings of blood chemistry; D69.6 Thrombocytopenia, unspecified
CPT/HCPCS: 0241U-QW; 36415; 36430; 36600; 70450-TC; 71045-TC-FY; 71250-TC; 76705-TC; 76775-TC; 76856-TC; 80048; 80053; 81003; 82140; 82272; 82550; 82553; 82570; 82728; 82803; 82962; 83540; 83550; 83605; 83735; 84100; 84300; 84439; 84443; 84466; 84484; 85025; 85027; 85045; 85610; 85730; 86803; 86850; 86900; 86901; 86922; 87040; 87070; 87077; 87081; 87086; 87205; 87340; 87899; 93005; 93010; 93306-TC; 94002; 94640; 95816; 99285-25; J1644; J1756; P9038; P9047; P9058; Q5106